=== PATIENT | female | born 1970 | race Caucasian/White ===

== ENCOUNTER 2019-12-12 10:20 | Outpatient (REF) | payer BC, MEDICARE, SELFPAY ==
--- NOTE | 2019-12-12 | MM_ITS ---
EXAMINATION: BONE DENSITOMETRY CLINICAL INDICATION: Postmenopausal. COMPARISON: Baseline BD dated 12/10/2017. TECHNIQUE: Using a [employer] DXA System (software version: 13.1) manufactured by [employer], dual-energy x-ray absorptiometry was performed of the lumbar spine and left hip. The images are of good technical quality. Summary results are attached. FINDINGS: AP SPINE L1-L4: Current: BMD 0.847 g/cm2, Z-score -2.5, T-score -2.8, osteoporosis, 4.9% decrease from baseline (<5% change is not significant). Baseline: BMD 0.891 g/cm2. LEFT FEMUR, NECK: Current: BMD 0.864 g/cm2, Z-score -0.5, T-score -1.3, osteopenia. Baseline: BMD 0.880 g/cm2. LEFT FEMUR, TOTAL: Current: BMD 0.988 g/cm2, Z-score 0.3, T-score -0.2, normal, 2.6% decrease from baseline (<5% change is not significant). Baseline: BMD 1.014 g/cm2. IDENTIFIED RISK FACTORS: Early menopause, bilateral oophorectomy, hysterectomy, history of fracture (adult), secondary osteoporosis. HISTORY OF FRACTURE: Pelvis/sacrum 2009 (nontraumatic). MEDICATIONS: Vitamin D. IMPRESSION: 1. DIAGNOSIS: Severe osteoporosis based on the lowest T-score value of -2.8 in the lumbar spine and history of nontraumatic fracture of pelvis/sacrum applying World Health Organization criteria. 2. 10-YEAR FRACTURE RISK PREDICTION, FRAX: Major osteoporotic fracture (clinical spine, forearm, hip or shoulder) 6.2%. Hip fracture 0.5%. 3. Treatment Recommendations: NOF guidelines recommend consideration for treatment in postmenopausal women and men age 50 and older presenting with the following: -A hip or vertebral (clinical or morphometric) fracture. -T-score less than or equal to -2.5 at the femoral neck or spine after appropriate evaluation to exclude secondary causes. -Low bone mass at the hip or spine and a 10-year fracture probability by FRAX of greater than or equal to 3% for hip fracture or greater than or equal to 20% for major osteoporotic fracture based on the [place] adapted WHO algorithm. 4. Other Recommendations: All treatment decisions require clinical judgment and consideration of individual patient factors, including patient preferences, comorbidities, previous drug use, risk factors not captured in the FRAX model (e.g. frailty, falls, vitamin D deficiency, increased bone turnover, interval significant decline in bone density) and possible under or overestimation of fracture risk by FRAX. Additional medical evaluation for secondary cause of low bone mineral density may be appropriate. FUTURE SCAN RECOMMENDATION: People with diagnosed cases of osteoporosis or at high risk for fracture should have regular bone mineral density tests. For patients eligible for Medicare, routine testing is allowed once every 2 years. The testing frequency can be increased to one year for patients who have rapidly progressing disease, those who are receiving or discontinuing medical therapy to restore bone mass, or have additional risk factors.
== END 2019-12-12 10:21 | disposition home or self-care (01) ==
LOC: HO.MAMMO 10:20
PROVIDERS: PCP Obstetrics & Gynecology; Visit Provider Obstetrics & Gynecology
DX: Z13.820 Encounter for screening for osteoporosis (principal); Z78.0 Asymptomatic menopausal state; Z98.890 Other specified postprocedural states; Z87.81 Personal history of (healed) traumatic fracture
CPT/HCPCS: 77080

== ENCOUNTER 2019-12-13 06:05 | Outpatient (REF) | payer BC, MEDICARE, SELFPAY ==
[2019-12-13 12:05] LABS: Alanine Aminotransferase 20 U/L (0-31); Anion Gap 10 (12-20); Aspartate Amino Transferase 20 U/L (5-31); Blood Urea Nitrogen 12 mg/dL (9-16); Calcium 9.3 mg/dL (8.4-10.2); Carbon Dioxide 30 mmol/L (22-29); Chloride 104 mmol/L (96-108); Cholesterol 237 mg/dL; Estimated Glomerular Filt Rate > 60; Glucose Fasting 95 mg/dL (60-99); HDL Cholesterol 78 mg/dL; LDL Cholesterol Calculated 142 mg/dl; Potassium 4.3 mmol/l (3.3-5.1); Sodium 140 mmol/L (135-145); Triglycerides 85 mg/dL
[2019-12-13 12:09] LABS: Free T4 (Free Thyroxine) 0.75 ng/dL (0.71-1.85); Thyroid Stimulating Hormone 1.56 mIU/mL (0.32-4.0); Vitamin D 25-OH Total 35.4 ng/mL (>30)
== END 2019-12-13 06:06 | disposition home or self-care (01) ==
LOC: HO.HMGCLDS 06:05
PROVIDERS: PCP Internal Medicine; Visit Provider Internal Medicine
DX: Z00.01 Encounter for general adult medical examination with abnormal findings (principal); I10 Essential (primary) hypertension; F41.8 Other specified anxiety disorders; E03.9 Hypothyroidism, unspecified; E89.40 Asymptomatic postprocedural ovarian failure; Z15.09 Genetic susceptibility to other malignant neoplasm; Z15.01 Genetic susceptibility to malignant neoplasm of breast; Z86.39 Personal history of other endocrine, nutritional and metabolic disease
CPT/HCPCS: 80048; 80061; 82306; 84439; 84443; 84450; 84460

== ENCOUNTER 2019-12-28 11:15 | Outpatient (REF) | payer BC, MEDICARE, SELFPAY ==
--- NOTE | 2019-12-28 11:18 | US_ITS ---
EXAMINATION: US THYROID CLINICAL INFORMATION: Other endocrine, nutritional and metabolic disease. Status post right-sided thyroidectomy. COMPARISON: None TECHNIQUE: Linear transducer gentile-scale and color Doppler examination with attention to the region of the thyroid. FINDINGS: SIZE: Measurements of the solitary left thyroid lobe and nodules are given in sagittal, anteroposterior and transverse dimensions respectively. Right Thyroid Lobe: Surgically absent. Left Thyroid Lobe: 4.9 x 1.4 x 1.1 cm, volume 6.0 mL. Parenchyma: The gland echotexture is homogeneous. Thyroid vascularity is normal. Isthmus: 0.1 cm in maximum AP dimension. ISTHMUS: No nodules. LEFT THYROID LOBE: No nodules. NODES: No lymphadenopathy is seen in the tissue surrounding the thyroid gland. US/US thyroid IMPRESSION: Status post right thyroidectomy. No visible left thyroid lobe abnormality. Right thyroidectomy bed unremarkable.
== END 2019-12-28 11:16 | disposition home or self-care (01) ==
LOC: HO.HMGCX 11:15
PROVIDERS: PCP Internal Medicine; Visit Provider Internal Medicine
DX: Z86.39 Personal history of other endocrine, nutritional and metabolic disease (principal); E89.0 Postprocedural hypothyroidism
CPT/HCPCS: 76536

== ENCOUNTER 2020-09-11 11:01 | Emergency (ER) | payer BC, MEDICARE, SELFPAY ==
[2020-09-11 11:11] VITALS: BP 142/92; PULSE 79; RESP 18; TEMP 35.7; O2SAT 98; BMI 21.6
[2020-09-11] MEDS: Ibuprofen 800 MG TABLET PO (12:00)
[2020-09-11] MEDS: Diphth,Pertus(ACell),Tet Adult 0.5 ML SYRINGE IM (12:11)
--- NOTE | 2020-09-11 12:15 | ED.WOUNDLAC ---
HPI - Wound/Laceration General Chief Complaint: Wound/Laceration <LI Gordon Last Filed: 09/11/20 12:37> Stated Complaint: finger laceration <LI Gordon Last Filed: 09/11/20 12:37> Time Seen by Provider: 09/11/20 11:28 <LI Gordon Last Filed: 09/11/20 12:37> Source: patient <LI Gordon Last Filed: 09/11/20 12:37> Mode of arrival: ambulatory <LI Gordon Last Filed: 09/11/20 12:37> Limitations: no limitations <LI Gordon Last Filed: 09/11/20 12:37> History of Present Illness HPI narrative: 49-year-old female presenting to the ED with complaints of laceration to her left hand at the distal aspect where she reports she was cutting lettuce and she sliced her hand with a knife prior to arrival. She is unsure she is up-to-date on her tetanus. She denies any other injuries complaints or concerns at this time. <LI Gordon - Last Filed: 09/11/20 12:37> Onset (ago): minute(s) ( Prior to arrival) <LI Gordon - Last Filed: 09/11/20 12:37> Extremity Location: left: hand ( thumb distal aspect) <LI Gordon - Last Filed: 09/11/20 12:37> Place: home <LI Gordon Last Filed: 09/11/20 12:37> Patient tetanus UTD: No <LI Gordon - Last Filed: 09/11/20 12:37> Context: accidental <LI Gordon Last Filed: 09/11/20 12:37> Associated symptoms: pain <LI Gordon - Last Filed: 09/11/20 12:37> Treatments prior to arrival: bandage <LI Gordon - Last Filed: 09/11/20 12:37> Related Data Home Medications: Home Medications Medication Instructions Recorded Confirmed cholecalciferol (vitamin D3) 125 125 mcg PO DAILY 12/09/19 12/11/19 mcg (5,000 unit) tablet duloxetine 30 mg capsule,delayed 30 mg PO DAILY 12/09/19 12/11/19 release lorazepam 0.5 mg tablet 0.5 mg PO BID PRN 12/09/19 12/11/19 magnesium 200 mg tablet 200 mg PO DAILY 12/09/19 12/11/19 melatonin 5 mg capsule 5 mg PO DAILY PRN cap 12/09/19 12/11/19 multivit,Ca,ziz-tpmj-KU-guarana-caff 1 tab PO DAILY tab 12/09/19 12/11/19 18 mg iron-400 mcg-180 mg tablet Previous Rx's Medication Instructions Recorded acetaminophen [Tylenol Extra 1,000 mg PO QID PRN #14 tab 09/11/20 Strength] ibuprofen 800 mg PO Q8H PRN #14 tab 09/11/20 oxycodone 5 mg PO BID PRN #10 tab 09/11/20 <LI Gordon - Last Filed: 09/11/20 12:37> Allergies/Adverse Reactions: Allergies Allergy/AdvReac Type Severity Reaction Status Date / Time ciprofloxacin [Cipro] Allergy Intermediate rash Verified 09/11/20 11:10 hydromorphone [Dilaudid] AdvReac Intermediate hallucinati Verified 09/11/20 11:10 ons shellfish Allergy Intermediate rash Uncoded 09/11/20 11:10 Wellbutrin Allergy Intermediate rash Uncoded 09/11/20 11:10 Zyban Allergy Intermediate rash Uncoded 09/11/20 11:10 dairy AdvReac Intermediate stomach Uncoded 09/11/20 11:10 upset gluten AdvReac Intermediate GI Uncoded 09/11/20 11:10 intolerance <LI Gordon - Last Filed: 09/11/20 12:37> Review of Systems Review of Systems: Constitutional : No Fever, No Chills, Cardiovascular : No Chest Pain, No SOB Respiratory : No Dyspnea Gastrointestinal : No abdominal pain Musculoskeletal : No Joint Swelling Skin : positive skin laceration, No Foreign bodies, No rash, No surrounding erythema Neuro : No Weakness, No Numbness/tingling Psych : No SI/HI/thoughts of self injury <LI Gordon Last Filed: 09/11/20 12:37> Yes all other systems are reviewed and are negative <LI Gordon - Last Filed: 09/11/20 12:37> [facility] Past Medical History Attestation statement: The following information was validated with the patient. <LI Gordon - Last Filed: 09/11/20 12:37> Medical History: Medical History BRCA2 gene mutation positive Celiac disease Depression with anxiety Fibromyalgia History of multinodular goiter Lumbar degenerative disc disease Lumbar spondylosis Seborrheic dermatitis Surgical menopause <LI Gordon - Last Filed: 09/11/20 12:37> Surgical History: Surgical History H/O partial thyroidectomy History of abdominoplasty History of reconstruction of both breasts Hx of bilateral mastectomy Status post total abdominal hysterectomy and bilateral salpingo-oophorectomy (EBONY-BSO) <LI Gordon - Last Filed: 09/11/20 12:37> Family History Family History: Family History Father Hypertension Mother Breast cancer <LI Gordon - Last Filed: 09/11/20 12:37> Social History Social History: Social History Substance Use Type: Marijuana Advance Directives: Yes Advance Directives Information Provided: Yes Advance Directives on File: No Patient : No <LI Gordon - Last Filed: 09/11/20 12:37> Physical Exam Vital Signs: Vital Signs: Last Vital Signs Temp 96.2 F L 09/11/20 11:11 Pulse 79 09/11/20 11:11 Resp 18 09/11/20 11:11 BP 142/92 H 09/11/20 11:11 Pulse Ox 98 09/11/20 11:11 Body Mass Index 21.6 vital signs have been reviewed as normal and appeared to be correct. Blood pressure normal. Heart rate normal. Respiration rate normal. Temperature normal. Oxygen saturation normal. <LI Gordon - Last Filed: 09/11/20 12:37> Vital Signs: Last Vital Signs Temp 96.2 F L 09/11/20 11:11 Pulse 79 09/11/20 11:11 Resp 18 09/11/20 11:11 BP 142/92 H 09/11/20 11:11 Pulse Ox 98 09/11/20 11:11 Body Mass Index 21.6 <Jonel Zepeda MD - Last Filed: 09/30/20 20:52> Appearance: Alert. Oriented X3. No acute distress. Head: Normal external exam. Normocephalic. Atraumatic. Eyes: PERRLA. EOMI. Conjunctiva and sclera normal. Eyelids normal. ENT: Pharynx normal. Uvula midline. Moist mucous membranes. . Neck: Normal inspection. Neck supple. FROM CVS: Normal heart rate and rhythm. Respiratory: No respiratory distress. Painless inspiration. Back: Full range of motion noted. No rashes/lesion/induration/fluctuance or signs of infection noted. Skin: Skin warm and dry. Normal skin color. Normal skin turgor. No rashes/lesions noted. patient has 1 cm circular avulsion laceration to left hand at the distal aspect of the thumb. Nail bed is not involved. Patient has full range of motion. No laxity is noted. Patient had mild active bleeding. Extremities:Extremities exhibit normal range of motion. Extremities nontender. Neuro: Oriented X 3. No motor deficit. No sensory deficit. Reflexes normal. Normal steady gait. No focal neuro deficits noted. Vascular: + radial pulses/+ 2 distal pedal pulses/+2 dorsalis pedis b/l. Normal cap refill. No cyanosis noted to upper extremity nails and lower extremity toes nails. <LI Gordon - Last Filed: 09/11/20 12:37> Course Course Course Narrative: Patient is now status post Surgicel placement with tube gauze dressing. Updated tetanus. No indication for imaging at this time. Will DC home with symptomatic treatment instructions return if any new or worsening symptoms. Patient understands agrees with this plan. <LI Gordon - Last Filed: 09/11/20 12:37> I have reviewed the chart <Jonel Zepeda MD - Last Filed: 09/30/20 20:52> Procedures Laceration Laceration 1: Site: hand (left thumb ) <LI Gordon - Last Filed: 09/11/20 12:37> Side (If applicable): left <LI Gordon - Last Filed: 09/11/20 12:37> Size (cm): 1 <LI Gordon - Last Filed: 09/11/20 12:37> Description: clean and other ( Avulsion) <LI Gordon Last Filed: 09/11/20 12:37> Pre-repair: wound explored and irrigated extensively <LI Gordon Last Filed: 09/11/20 12:37> Discharge Plan Discharge Clinical Impression: Avulsion of skin <LI Gordon Last Filed: 09/11/20 12:37> Patient Disposition: Home, Self-Care <LI Gordon Last Filed: 09/11/20 12:37> Instructions: Skin Avulsion (ED) <LI Gordon - Last Filed: 09/11/20 12:37> Prescriptions: New ibuprofen 800 mg tablet 800 mg PO Q8H PRN (Reason: pain) Qty: 14 RF: 0 acetaminophen [Tylenol Extra Strength] 500 mg tablet 1,000 mg PO QID PRN (Reason: fever or pain) Qty: 14 RF: 0 oxycodone 5 mg tablet 5 mg PO BID PRN (Reason: pain) Qty: 10 RF: 0 No Action magnesium 200 mg tablet 200 mg PO DAILY RF: 0 lorazepam 0.5 mg tablet 0.5 mg PO BID PRNRF: 0 melatonin 5 mg capsule 5 mg PO DAILY PRN (Reason: sleep) RF: 0 cholecalciferol (vitamin D3) 125 mcg (5,000 unit) tablet 125 mcg PO DAILY RF: 0 duloxetine [Cymbalta] 30 mg capsule,delayed release(DR/EC) 30 mg PO DAILY RF: 0 One-A-Day Women's Active 18 mg iron- 400 mcg-180 mg tablet 1 tab PO DAILY RF: 0 <LI Gordon Last Filed: 09/11/20 12:37> Referrals: Che Sibley MD [Physician] - 2 days (as needed) <LI Gordon Last Filed: 09/11/20 12:37> Interventions: ED Discharge Assessment Last Done: 09/11/20 12:46 <LI Gordon Last Filed: 09/11/20 12:37> Discharge Date/Time: 09/11/20 12:47 <LI Gordon - Last Filed: 09/11/20 12:37> Print Language: Gabonese <LI Gordon - Last Filed: 09/11/20 12:37>
== END 2020-09-11 12:47 | disposition home or self-care (01) ==
PROVIDERS: Emergency Provider Emergency Medicine; PCP Internal Medicine
DX: S61.412A Laceration without foreign body of left hand, initial encounter (principal); W26.0XXA Contact with knife, initial encounter; Y93.G3 Activity, cooking and baking; Y92.009 Unspecified place in unspecified non-institutional (private) residence as the place of occurrence of the external cause; Y99.9 Unspecified external cause status
CPT/HCPCS: 12001; 90471; 90715; 99284

== ENCOUNTER 2020-12-12 06:05 | Outpatient (REF) | payer BC, MEDICARE, SELFPAY ==
[2020-12-12 11:16] LABS: MANUAL DIFF FLAG NO
[2020-12-12 11:56] LABS: Basophils Percent Auto 0.4 % (0-2); Eosinophils Absolute Auto 0.1 X10*3/uL (0.0-0.4); Hematocrit 40.6 % (37-47); Hemoglobin 13.2 g/dl (12.0-16.0); Imm Gran Abs Auto 0.01 X10*3/uL (0.00-0.03); Imm Gran Pct Auto 0.2 % (0.0-0.4); Lymphocytes Absolute Auto 1.7 X10*3/uL (1.2-4.9); Mean Corpuscular HGB Conc 32.5 g/dl (31.0-35.0); Mean Corpuscular Hemoglobin 31.2 pg (27.0-33.0); Mean Platelet Volume 9.1 fL (9.4-12.3); Monocytes Absolute Auto 0.3 X10*3/uL (0.1-1.2); Monocytes Percent Auto 7.2 % (2-11); Neutrophils Absolute Auto 2.4 X10*3/uL (2.0-8.3); Neutrophils Percent Auto 53.2 % (45-73); Platelet Count 248 X10*3/uL (160-400); Red Blood Count 4.23 X10*6/uL (4.20-5.50); Red Cell Distribution Width 12.2 % (11.0-16.0); White Blood Count 4.6 X10*3/uL (4.8-10.8)
[2020-12-12 12:04] LABS: TSH reflex Free T4 2.03 uIU/mL (0.32-4.0); Vitamin D 25-OH Total 45.9 ng/mL (>30)
[2020-12-12 12:12] LABS: Alanine Aminotransferase 19 U/L (0-31); Anion Gap 11 (12-20); Aspartate Amino Transferase 21 U/L (5-31); Blood Urea Nitrogen 14 mg/dL (9-16); Carbon Dioxide 25 mmol/L (22-29); Chloride 107 mmol/L (96-108); Cholesterol 207 mg/dL; Estimated Glomerular Filt Rate > 60; Glucose Fasting 98 mg/dL (60-99); HDL Cholesterol 79 mg/dL; LDL Cholesterol Calculated 115 mg/dl; Potassium 4.4 mmol/L (3.3-5.1); Sodium 139 mmol/L (135-145); Triglycerides 67 mg/dL
[2020-12-12 12:15] LABS: Folate 16.7 ng/mL (> or = 4.0); Vitamin B12 460 pg/mL (200-900)
== END 2020-12-12 06:06 | disposition home or self-care (01) ==
LOC: HO.HMGCLDS 06:05
PROVIDERS: PCP Internal Medicine; Visit Provider Internal Medicine
DX: Z00.01 Encounter for general adult medical examination with abnormal findings (principal); E89.40 Asymptomatic postprocedural ovarian failure; E03.9 Hypothyroidism, unspecified; F41.8 Other specified anxiety disorders; R53.81 Other malaise; R53.83 Other fatigue; M79.7 Fibromyalgia; M81.0 Age-related osteoporosis without current pathological fracture; Z86.39 Personal history of other endocrine, nutritional and metabolic disease; Z15.01 Genetic susceptibility to malignant neoplasm of breast; Z15.09 Genetic susceptibility to other malignant neoplasm
CPT/HCPCS: 36415; 80048; 80061; 82306; 82607; 82746; 84443; 84450; 84460; 85025

== ENCOUNTER 2021-12-12 10:44 | Outpatient (REF) | payer BC, MEDICARE, SELFPAY ==
--- NOTE | ~2021-12-12 | MM_ITS ---
EXAMINATION: BONE DENSITOMETRY CLINICAL INDICATION: Menopause. COMPARISON: Previous BD dated 12/12/2019 and baseline BD dated 12/10/2017. TECHNIQUE: Using a [employer] DXA System (software version: 13.1) manufactured by [facility], dual-energy x-ray absorptiometry was performed of the lumbar spine and left hip. The images are of good technical quality. Summary results are attached. FINDINGS: AP SPINE L1-L4: Current: BMD 0.826 g/cm2, Z-score -2.5, T-score -2.9, osteoporosis, 2.5% decrease from previous, 7.3% decrease from baseline (<5% change is not significant). Prior: BMD 0.847 g/cm2. Baseline: BMD 0.891 g/cm2. LEFT FEMUR, NECK: Current: BMD 0.863 g/cm2, Z-score -0.4, T-score -1.3, osteopenia. Prior: BMD 0.864 g/cm2. Baseline: BMD 0.880 g/cm2. LEFT FEMUR, TOTAL: Current: BMD 0.967 g/cm2, Z-score 0.2, T-score -0.3, normal, 2.1% decrease from previous, 4.6% decrease from baseline (<5% change is not significant). Prior: BMD 0.988 g/cm2. Baseline: BMD 1.014 g/cm2. IDENTIFIED RISK FACTORS: Early menopause, secondary osteoporosis, bilateral oophorectomy, history of fracture (adult), osteoporosis, hysterectomy. HISTORY OF FRACTURE: Pelvis/sacrum 2009. MEDICATIONS: Calcium supplements or multivitamin, vitamin D. MM/XR DEXA axial skeleton IMPRESSION: 1. DIAGNOSIS: Osteoporosis based on the lowest T-score value of -2.9 in the lumbar spine applying World Health Organization criteria. 2. 10-YEAR FRACTURE RISK PREDICTION, FRAX: According to the guidelines, FRAX calculation should only be performed on patients in the osteopenia bone density category. Therefore, FRAX was not performed on this patient. 3. Treatment Recommendations: NOF guidelines recommend consideration for treatment in postmenopausal women and men age 50 and older presenting with the following: -A hip or vertebral (clinical or morphometric) fracture. -T-score less than or equal to -2.5 at the femoral neck or spine after appropriate evaluation to exclude secondary causes. -Low bone mass at the hip or spine and a 10-year fracture probability by FRAX of greater than or equal to 3% for hip fracture or greater than or equal to 20% for major osteoporotic fracture based on the [place] adapted WHO algorithm. 4. Other Recommendations: All treatment decisions require clinical judgment and consideration of individual patient factors, including patient preferences, comorbidities, previous drug use, risk factors not captured in the FRAX model (e.g. frailty, falls, vitamin D deficiency, increased bone turnover, interval significant decline in bone density) and possible under or overestimation of fracture risk by FRAX. Additional medical evaluation for secondary cause of low bone mineral density may be appropriate. FUTURE SCAN RECOMMENDATION: People with diagnosed cases of osteoporosis or at high risk for fracture should have regular bone mineral density tests. For patients eligible for Medicare, routine testing is allowed once every 2 years. The testing frequency can be increased to one year for patients who have rapidly progressing disease, those who are receiving or discontinuing medical therapy to restore bone mass, or have additional risk factors.
== END 2021-12-12 10:45 | disposition home or self-care (01) ==
LOC: HO.MAMMO 10:44
PROVIDERS: Absent Provider Nurse Practitioner; PCP Internal Medicine; Visit Provider Obstetrics & Gynecology
DX: Z13.820 Encounter for screening for osteoporosis (principal); Z78.0 Asymptomatic menopausal state; M81.0 Age-related osteoporosis without current pathological fracture
CPT/HCPCS: 77080

== ENCOUNTER 2022-01-20 06:42 | Outpatient (REF) | payer BC, MEDICARE, SELFPAY ==
[2022-01-20 11:37] LABS: MANUAL DIFF FLAG NO
[2022-01-20 11:54] LABS: Basophils Percent Auto 0.5 % (0-2); Eosinophils Percent Auto 0.7 % (0-4); Hematocrit 39.6 % (37.0-47.0); Hemoglobin 13.2 g/dl (12.0-16.0); Imm Gran Abs Auto 0.01 X10*3/uL (0.00-0.03); Imm Gran Pct Auto 0.2 % (0.0-0.4); Lymphocytes Absolute Auto 1.7 X10*3/uL (1.2-4.9); Lymphocytes Percent Auto 39.7 % (20-40); Mean Corpuscular HGB Conc 33.3 g/dl (31.0-35.0); Mean Corpuscular Hemoglobin 32.5 pg (27.0-33.0); Mean Corpuscular Volume 97.5 fL (80.0-98.0); Mean Platelet Volume 9.1 fL (9.4-12.3); Monocytes Absolute Auto 0.3 X10*3/uL (0.1-1.2); Monocytes Percent Auto 7.3 % (2-11); Neutrophils Absolute Auto 2.2 x10*3/uL (2.0-8.3); Neutrophils Percent Auto 51.6 % (45-73); Platelet Count 240 X10*3/uL (160-400); Red Blood Count 4.06 X10*6/uL (4.20-5.50); Red Cell Distribution Width 12.4 % (11.0-16.0); White Blood Count 4.3 X10*3/uL (4.8-10.8)
[2022-01-20 12:20] LABS: Alanine Aminotransferase 21 U/L (0-31); Anion Gap 10 (12-20); Aspartate Amino Transferase 22 U/L (5-31); Blood Urea Nitrogen 19 mg/dL (9-16); Calcium 9.3 mg/dL (8.4-10.2); Carbon Dioxide 28 mmol/L (22-29); Chloride 106 mmol/L (96-108); Cholesterol 198 mg/dL; Estimated Glomerular Filt Rate > 60; Glucose Fasting 97 mg/dL (60-99); HDL Cholesterol 80 mg/dL; LDL Cholesterol Calculated 109 mg/dl; Potassium 4.3 mmol/L (3.3-5.1); Sodium 140 mmol/L (135-145); Triglycerides 46 mg/dL
== END 2022-01-20 06:43 | disposition home or self-care (01) ==
LOC: HO.HMGCLDS 06:42
PROVIDERS: PCP Internal Medicine; Visit Provider Internal Medicine
DX: Z00.01 Encounter for general adult medical examination with abnormal findings (principal); M81.0 Age-related osteoporosis without current pathological fracture; E89.40 Asymptomatic postprocedural ovarian failure
CPT/HCPCS: 36415; 80048; 80061; 82306; 84450; 84460; 85025

== ENCOUNTER → 2022-06-04 12:37 | Outpatient (REF) | payer BC, MEDICARE, SELFPAY ==
--- NOTE | 2022-06-04 12:41 | HM_ITS ---
* Total monitoring time about 7 days. * Underlying rhythm is sinus. Average ventricular rate 75/Min. Range 47 to 158/Min. About 10% the time, rate > 100/Min. * Rare PACs and PVCs with minimal burden. * No significant pauses or AV blocks. * Patient diary reports symptoms including 'blurp', 'flutter', 'bubble in chest', 'left chest heart' at different times. Correlate with sinus rhythm and sinus tachycardia. MTDD
== END ==
LOC: HO.CARD 12:37
PROVIDERS: PCP Internal Medicine; Visit Provider Internal Medicine
DX: R00.2 Palpitations (principal)
CPT/HCPCS: 93242

== ENCOUNTER 2022-07-09 06:24 | Outpatient (REF) | payer BC, MEDICARE, SELFPAY ==
[2022-07-09 11:12] LABS: MANUAL DIFF FLAG NO
[2022-07-09 11:33] LABS: Basophils Percent Auto 0.7 % (0-2); Eosinophils Absolute Auto 0.1 X10*3/uL (0.0-0.4); Eosinophils Percent Auto 1.4 % (0-4); Hematocrit 40.5 % (37.0-47.0); Imm Gran Abs Auto 0.01 X10*3/uL (0.00-0.03); Imm Gran Pct Auto 0.2 % (0.0-0.4); Lymphocytes Absolute Auto 1.5 X10*3/uL (1.2-4.9); Lymphocytes Percent Auto 36.1 % (20-40); Mean Corpuscular HGB Conc 32.1 g/dl (31.0-35.0); Mean Corpuscular Volume 96.7 fL (80.0-98.0); Mean Platelet Volume 9.1 fL (9.4-12.3); Monocytes Absolute Auto 0.3 X10*3/uL (0.1-1.2); Monocytes Percent Auto 6.3 % (2-11); Neutrophils Absolute Auto 2.3 x10*3/uL (2.0-8.3); Neutrophils Percent Auto 55.3 % (45-73); Platelet Count 249 X10*3/uL (160-400); Red Blood Count 4.19 X10*6/uL (4.20-5.50); Red Cell Distribution Width 12.4 % (11.0-16.0); White Blood Count 4.2 X10*3/uL (4.8-10.8)
[2022-07-09 12:29] LABS: TSH reflex Free T4 1.63 uIU/mL (0.32-4.0)
== END 2022-07-09 06:25 | disposition home or self-care (01) ==
LOC: HO.HMGCLDS 06:24
PROVIDERS: PCP Internal Medicine; Visit Provider Internal Medicine
DX: R00.2 Palpitations (principal)
CPT/HCPCS: 36415; 84443; 85025

== ENCOUNTER 2022-09-29 09:27 | Outpatient (AMB) | payer BC, MEDICARE, SELFPAY ==
[2022-09-29 09:28] VITALS: BP 102/66; PULSE 57; BMI 25.4
--- NOTE | 2022-09-29 09:28 | A.OFFVIS_ITS ---
Intake Vital Signs 09/29/22 09:28 Height 5 ft 2.5 in Weight 141 lb 1.533 oz BMI 25.4 BP 102/66 Blood Pressure Location Lt brachial Position Sitting Pulse 57 Intake Visit Reasons: NPV/Espinas/Palpitations Intake Note: NPV [employer] Manager Required: No Accompanied by: Self / Same As Patient Allergies ciprofloxacin [Cipro] Allergy (Intermediate, Verified 09/29/22 09:31) rash hydromorphone [Dilaudid] Adverse Reaction (Intermediate, Verified 09/29/22 09:31) hallucinations shellfish Allergy (Intermediate, Uncoded 09/29/22 09:31) rash Wellbutrin Allergy (Intermediate, Uncoded 09/29/22 09:31) rash Zyban Allergy (Intermediate, Uncoded 09/29/22 09:31) rash dairy Adverse Reaction (Intermediate, Uncoded 09/29/22 09:31) stomach upset gluten Adverse Reaction (Intermediate, Uncoded 09/29/22 09:31) GI intolerance Medication List - Last Reconciled 09/29/22 by Parish Menendez MD acetaminophen (Tylenol Extra Strength) 1,000 mg (2 x 500 mg) PO QID PRN cephalexin 500 mg PO BID cholecalciferol (vitamin D3) 125 mcg PO DAILY duloxetine (Cymbalta) 30 mg PO DAILY ibuprofen 800 mg PO Q8H PRN lorazepam 0.5 mg PO BID PRN magnesium 200 mg PO DAILY melatonin 5 mg PO DAILY PRN mv,Ca,fzl-rnsk-EY-guarana-caff 18 mg iron- 400 mcg-180 mg (One-A-Day Women's Active) 1 tab PO DAILY HPI HPI Comments History of Present Illness Details Kayla is here for consultation regarding palpitations. She states that she feels some kind of of 'blurp' or so in her left chest periodically. She had a Holter monitor. She describes a lot of symptoms but none of them correlated with any arrhythmias. Mostly with sinus rhythm/sinus tachycardia. Otherwise, she does not have any chest pain or anginal-type symptoms or anything else concerning. She does swim regularly without any issues. Has a history of breast cancer and hence mastectomy/implant. There is a family history of coronary disease in father in his 50s who has undergone several procedures per patient. [facility] Medical History (Updated 09/29/22 @ 09:44 by Parish Menendez MD) BRCA2 gene mutation positive Celiac disease Depression with anxiety Family history of early CAD Fibromyalgia History of multinodular goiter Intermittent palpitations Lumbar degenerative disc disease Lumbar spondylosis Malaise and fatigue Osteoporosis Seborrheic dermatitis Surgical menopause Surgical History H/O partial thyroidectomy History of abdominoplasty History of reconstruction of both breasts Hx of bilateral mastectomy Status post total abdominal hysterectomy and bilateral salpingo-oophorectomy (EBONY-BSO) Family History (Updated 09/29/22 @ 09:33 by Romelia Pavon) Father Hypertension Mental health disorder Heart attack History of open heart surgery Mother Breast cancer Mental health disorder Social History Housing: House Patient Tobacco Use Status: Former Tobacco user Years Smoked: 5 yrs e-Cigarette/Vaping Use: Never Used Substance Use Type: Marijuana service: No Current occupational status: unemployed Cognitive needs: No Hearing needs: No Vision needs: No Review of Systems Const Denies chills, Denies daytime sleepiness, Denies fatigue, Denies fever(s), Denies frequent falls, Denies night sweats, Denies snoring, Denies weakness, Denies weight gain and Denies weight loss Eyes Denies loss of vision ENT Denies dizziness and Denies hearing loss Card Denies chest pain, Denies chest pain with activity, Denies syncope, Denies rapid heart rate, Denies edema, Denies claudication, Denies leg edema, Denies lightheadedness, Denies palpitations, Denies dyspnea, Denies dyspnea on exertion and Denies orthopnea Resp Denies cough, Denies excessive phlegm production, Denies dyspnea, Denies dyspnea on exertion, Denies snoring and Denies wheezing GI Denies abdominal pain, Denies hematochezia, Denies change in bowel habits, Denies change in stool character, Denies heartburn, Denies nausea and Denies vomiting Denies hematuria, Denies urinary frequency and Denies dysuria Musc Denies arthralgias, Denies muscle weakness, Denies numbness and Denies tingling Skin/Breast Denies nail changes and Denies rash Neuro Denies Abnormal speech present, Denies dizziness, Denies syncope, Denies frequent falls, Denies loss of vision, Denies memory loss, Denies numbness, Denies tingling and Denies weakness Psych Denies depression and Denies memory loss Endo Denies fatigue and Denies palpitations Aller/Immun Denies wheezing Physical Exam Vital Signs: Last Vital Signs Pulse 57 09/29/22 09:28 BP 102/66 09/29/22 09:28 BMI result Body Mass Index 25.4 Const General: comfortable and no acute distress Orientation/consciousness: patient oriented x3 HEENT Other: Unremarkable Head: Yes normal to inspection Neck Neck: Yes normal visual inspection Chest Chest palpation & inspection: normal inspection of the chest Resp Auscultation: clear to auscultation bilaterally Cardio Palpation: normal PMI Heart sounds: S1 normal heart sound present, S2 normal heart sound present, no gallops, no murmurs and no rubs GI Palpation (GI): Soft to palpation Back/Spine/Pelvis Other: unremarkable Skin General skin exam: no rashes or lesions noted Neuro General: patient oriented x3 Speech: No Abnormal speech present Extrem General: Yes normal to inspection Psych Mental Status: mental status grossly normal Assessment & Plan Assessment & Plan (1) Heart palpitations: Code(s): R00.2 - Palpitations (2) Family history of early CAD: Comment: father had IA at age 54 y/o Code(s): Z82.49 - Family history of ischemic heart disease and other diseases of the circulatory system Plan In the baseline EKG, underlying rhythm is sinus bradycardia at 48/Min. Biphasic T-waves/inversion in precordial leads V1 to V3. Could be from body habitus, nonspecific finding but less likely to represent coronary issues. In the Holter, underlying sinus rhythm. Very rare PVCs/PACs. Several symptoms reported in patient diary including flutter, blurp, bubble in chest, but they all correlate with sinus rhythm/sinus tachycardia. Holter findings reviewed with patient. As ectopy is extremely rare and probably not causing any symptoms, no specific management for that. Reassurance only. With regard to strong family history of coronary disease in her father at young age, we can do a baseline echocardiogram/calcium scoring CT scan. Patient agreeable to the above. Follow-up in a few weeks time. Orders: Orders CA echo transthoracic complete Today R00.2 - Palpitations CT Coronary Calcium Score Today R00.2 - Palpitations, Z82.49 - Family history of ischemic heart disease and other diseases of the circulatory system Coding Level of Care Code New Pt Level 3 (61293) Diagnoses Heart palpitations R00.2 Family history of early CAD Z82.49
== END 2022-09-29 09:58 | disposition home or self-care (01) ==
PROVIDERS: Visit Provider Internal Medicine
DX: R00.2 Palpitations (principal); Z82.49 Family history of ischemic heart disease and other diseases of the circulatory system
CPT/HCPCS: 99203

== ENCOUNTER → 2022-09-29 09:27 | Outpatient (BNVA) | payer BC, MEDICARE, SELFPAY | PROVIDERS: Visit Provider Internal Medicine ==

== ENCOUNTER 2022-10-06 19:30 | Inpatient (IN) | payer BC, MEDICARE, SELFPAY ==
--- NOTE | ~2022-10-06 | XR_ITS ---
EXAMINATION: XR TOES, LEFT CLINICAL INFORMATION: Injury, swelling, pain. COMPARISON: None available. TECHNIQUE: 3 views of the left toes were obtained. FINDINGS: Cortical lucency and irregularity along the medial and plantar surface of the base of the distal first phalanx. Surrounding soft tissue thickening. No unexpected radiopaque foreign bodies. XR/XR toe LT min 2V IMPRESSION: Cortical lucency and irregularity along the medial and plantar surface of the base of the distal first phalanx. This could represent an acute fracture versus infection such as osteomyelitis. Correlate clinically and if indicated consider further evaluation with MRI.
--- NOTE | ~2022-10-06 | MR_ITS ---
EXAMINATION: MRI FOOT WITHOUT AND WITH CONTRAST, LEFT CLINICAL INFORMATION: Osteomyelitis COMPARISON: Radiographs 10/06/2022 TECHNIQUE: MRI without and with intravenous administration of 6.5 mL of Gadavist is performed on the left forefoot. FINDINGS: There is an elongated T2 hyperintense enhancing structure measuring 4 mm in transverse dimension, and a length of 1.1 cm at the dorsal/medial aspect of the base of the 1st proximal phalanx, possibly extending from the nail bed has a sinus tract. This extends to and erodes the underlying bone at the medial aspect of the base of the 1st distal phalanx, as demonstrated on the radiographs. Associated marrow edema and enhancement is compatible with osteomyelitis in the setting of infection. Other inflammatory etiologies including the possibility of gout should be considered, although the appearance of the bony irregularity/cortical erosion on the radiographs is more suggestive of infection. No interphalangeal joint effusion or marrow signal abnormality of the proximal phalanx. Flexor and extensor tendons appear intact. Otherwise unremarkable. MR/MR foot LT wo/w con IMPRESSION: In the setting of infection, findings consistent with soft tissue sinus tract/small abscess at the dorsal/medial aspect of the base of the 1st proximal phalanx with underlying osteomyelitis as described.
[2022-10-06 20:19] VITALS: BP 128/78; PULSE 80; RESP 20; TEMP 36.9; O2SAT 100; BMI 24.0
--- NOTE | 2022-10-06 20:22 | ED_ITS ---
HPI - Extremity Injury (Lower) General Chief Complaint: Extremity Injury, Lower Stated Complaint: left foot toe infection Time Seen by Provider: 10/06/22 22:21 Related Data Home Medications Medication Instructions Recorded Confirmed lorazepam 0.5 mg tablet 0.5 mg PO BID PRN Anxiety 12/09/19 10/06/22 melatonin 5 mg capsule 5 mg PO DAILY 12/09/19 10/06/22 amoxicillin 875 mg-potassium 1 tab PO BID 10/06/22 10/06/22 clavulanate 125 mg tablet ibuprofen 200 mg tablet 400 mg PO Q6H PRN Pain 10/06/22 10/06/22 Previous Rx's Medication Instructions Recorded acetaminophen 500 mg tablet 1,000 mg PO QID PRN fever or pain 09/11/20 (Tylenol Extra Strength) #14 tabs Allergies Allergy/AdvReac Type Severity Reaction Status Date / Time ciprofloxacin [Cipro] Allergy Intermediate rash Verified 09/29/22 09:31 hydromorphone [Dilaudid] AdvReac Intermediate hallucinati Verified 09/29/22 09:31 ons shellfish Allergy Intermediate rash Uncoded 09/29/22 09:31 Wellbutrin Allergy Intermediate rash Uncoded 09/29/22 09:31 Zyban Allergy Intermediate rash Uncoded 09/29/22 09:31 dairy AdvReac Intermediate stomach Uncoded 09/29/22 09:31 upset gluten AdvReac Intermediate GI Uncoded 09/29/22 09:31 intolerance PMFSH Past Medical History Medical History (Updated 10/06/22 @ 23:39 by Morelia Hudson MD) BRCA2 gene mutation positive Celiac disease Depression with anxiety Family history of early CAD Fibromyalgia History of multinodular goiter Intermittent palpitations Lumbar degenerative disc disease Lumbar spondylosis Malaise and fatigue Osteoporosis Seborrheic dermatitis Surgical menopause Surgical History H/O partial thyroidectomy History of abdominoplasty History of reconstruction of both breasts Hx of bilateral mastectomy Status post total abdominal hysterectomy and bilateral salpingo-oophorectomy (EBONY-BSO) Family History Family History (Updated 09/29/22 @ 09:33 by Romelia Pavon) Father Hypertension Mental health disorder Heart attack History of open heart surgery Mother Breast cancer Mental health disorder Social History Social History Housing: House Patient Tobacco Use Status: Former Tobacco user Years Smoked: 5 yrs e-Cigarette/Vaping Use: Never Used Substance Use Type: Marijuana Advance Directives: No Advance Directives Information Provided: Yes Nutrition Risks: No Nutritional Risk service: No Current occupational status: unemployed Cognitive needs: No Hearing needs: No Vision needs: No Physical Exam Vital Signs: Vital Signs: Last Vital Signs Temp 98.5 F 10/06/22 20:19 Pulse 80 10/06/22 20:19 Resp 20 10/06/22 20:19 BP 128/78 10/06/22 20:19 Pulse Ox 100 10/06/22 20:19 O2 Del Method Room Air 10/06/22 20:19 BMI result Body Mass Index 24.0 Course Course Course Narrative: RME - 51 yo female presenting to the ER for evaluation of left great toe pain, redness and swelling since she had an injury on 09/17. Had nail removed by her doctor and was started on Keflex 09/25. Changed to Augmentin on 09/28 with worse adalberto redness and swelling. No relief with epsom salt soaks TID, motrin and tylenol. No diabetic. No hx gout Plan: x-ray toe, I&D? Medications Administered Discontinued Medications Generic Name Dose Route Start Last Admin Trade Name Freq PRN Reason Stop Dose Admin Sodium Chloride 1,000 mls @ 999 mls/hr 10/06/22 22:30 10/06/22 23:01 Ns IVCONT 10/06/22 23:30 999 mls/hr .Q1H1M ONE Administration Piperacillin Sod/Tazobactam 50 mls @ 100 mls/hr 10/06/22 22:30 10/06/22 23:10 Sod 3.375 gm/ Sodium Chloride IV 10/06/22 22:59 100 mls/hr ONCE ONE Administration Lorazepam 0.5 mg 10/06/22 22:30 10/06/22 22:59 Lorazepam 0.5 Mg Tablet PO 10/06/22 22:31 0.5 mg ONCE ONE Administration Medical Decision Making Medical Decision Making [facility] Narrative: - patient failed p.o. antibiotics, patient's toe keeps getting worse - My interpretation of her x-ray: No fracture there is a small area of tra nslucency the medial aspect of the 1st phalanx - radiology report: x-ray, there is a possibility of osteomyelitis. - patient was started on IV antibiotics, Zosyn and vancomycin and IV fluids. Sepsis not suspected Differential Diagnosis Differential Diagnoses: The differential diagnosis associated with the presentation includes ( Phalanx fracture, osteomyelitis, cellulitis) Admission/Observation Consideration of admission/observation: Escalation of care including admission/observation considered Consult Healthcare Provider Management of the patient was discussed with: Hospitalist ( I discussed the patient with Dr. Fuentes, patient being admitted) Lab Data MDM Lab Attestation statement: I reviewed the patient's lab results. 10/06/22 22:45 10/06/22 22:45 Labs: Lab Results 10/06/22 10/06/22 10/06/22 Range/Units 22:45 22:45 22:45 WBC 7.8 (4.8-10.8) X10*3/uL RBC 4.43 (4.20-5.50) X10*6/uL Hgb 13.9 (12.0-16.0) g/dl Hct 40.8 (37.0-47.0) % MCV 92.1 (80.0-98.0) fL MCH 31.4 (27.0-33.0) pg MCHC 34.1 (31.0-35.0) g/dl RDW 11.6 (11.0-16.0) % Plt Count 267 (160-400) X10*3/uL MPV 8.5 L (9.4-12.3) fL Immature Gran % (Auto) 0.4 (0.0-0.4) % Neut % (Auto) 49.1 (45-73) % Lymph % (Auto) 41.6 H (20-40) % [place] % (Auto) 7.4 (2-11) % Eos % (Auto) 1.1 (0-4) % Baso % (Auto) 0.4 (0-2) % Lymph # (Auto) 3.3 (1.2-4.9) X10*3/uL [place] # (Auto) 0.6 (0.1-1.2) X10*3/uL Eos # (Auto) 0.1 (0.0-0.4) X10*3/uL Baso # (Auto) 0.0 (0.0-0.2) X10*3/uL Abs Immat Gran (auto) 0.03 (0.00-0.03) X10*3/uL Absolute Neuts (auto) 3.9 (2.0-8.3) x10*3/uL Absolute Nucleated RBC 0.000 (0.0-0.012) X10*3/uL Nucleated RBC % (auto) 0.0 (0.0-0.2) /100WBC Sodium 140 (135-145) mmol/L Potassium 3.9 (3.3-5.1) mmol/L Chloride 100 (96-108) mmol/L Carbon Dioxide 26 (22-29) mmol/L Anion Gap 18 (12-20) BUN 23 H (9-16) mg/dL Creatinine 0.73 (0.5-1.4) mg/dL Estim Creat Clear Calc 83.8 Estimated GFR > 60 Random Glucose 98 (60-115) mg/dL Lactic Acid 0.5 (0.5-2.0) mmol/L Calcium 10.5 H D (8.4-10.2) mg/dL C-Reactive Protein < 0.04 (< or = 0.50) mg/dL Radiology Impression Discussion of test interpretation with radiology: I have reviewed the radiologist's reading. Radiologist Impression: FINDINGS: Cortical lucency and irregularity along the medial and plantar surface of the base of the distal first phalanx. Surrounding soft tissue thickening. No unexpected radiopaque foreign bodies. XR/XR toe LT min 2V IMPRESSION: Cortical lucency and irregularity along the medial and plantar surface of the base of the distal first phalanx. This could represent an acute fracture versus infection such as osteomyelitis. Correlate clinically and if indicated consider further evaluation with MRI. ? Independent Historian Clinical information obtained from an independent historian. History obtained from or confirmed by: Spouse Critical Care Time Critical Care Time Critical Care Time: Yes Total Critical Care Time: 60 Attestation: I have personally provided critical care time. Time includes review of lab data, radiology results, discussion with consultants, and monitoring for potential decompensation. Intervention performed as documented. Discharge Plan Discharge Clinical Impression: Acute osteomyelitis of toe Patient Disposition: Home, Self-Care Prescriptions: No Action acetaminophen [Tylenol Extra Strength] 500 mg tablet 1,000 mg PO QID PRN (Reason: fever or pain) Qty: 14 0RF ibuprofen 200 mg Tablet 400 mg PO Q6H PRN (Reason: Pain) amoxicillin-pot clavulanate 875-125 mg tablet 1 tab PO BID lorazepam 0.5 mg tablet 0.5 mg PO BID PRN (Reason: Anxiety) melatonin 5 mg capsule 5 mg PO DAILY Rx Instructions: At bedtime with food
--- NOTE | 2022-10-06 22:43 | PHA.MEDREC ---
Pharmacy Consult ? Medication Reconciliation Pharmacy has completed the medication reconciliation. Patient reported medicaitons. Adriana Willoughby, VinicioD
[2022-10-06 22:54] LABS: MANUAL DIFF FLAG NO
[2022-10-06] MEDS: LORazepam 0.5 MG TABLET PO (22:59)
[2022-10-06 23:00] LABS: Basophils Percent Auto 0.4 % (0-2); Eosinophils Absolute Auto 0.1 X10*3/uL (0.0-0.4); Eosinophils Percent Auto 1.1 % (0-4); Hematocrit 40.8 % (37.0-47.0); Hemoglobin 13.9 g/dl (12.0-16.0); Imm Gran Abs Auto 0.03 X10*3/uL (0.00-0.03); Imm Gran Pct Auto 0.4 % (0.0-0.4); Lymphocytes Absolute Auto 3.3 X10*3/uL (1.2-4.9); Lymphocytes Percent Auto 41.6 % (20-40); Mean Corpuscular HGB Conc 34.1 g/dl (31.0-35.0); Mean Corpuscular Hemoglobin 31.4 pg (27.0-33.0); Mean Corpuscular Volume 92.1 fL (80.0-98.0); Mean Platelet Volume 8.5 fL (9.4-12.3); Monocytes Absolute Auto 0.6 X10*3/uL (0.1-1.2); Monocytes Percent Auto 7.4 % (2-11); Neutrophils Absolute Auto 3.9 x10*3/uL (2.0-8.3); Neutrophils Percent Auto 49.1 % (45-73); Platelet Count 267 X10*3/uL (160-400); Red Blood Count 4.43 X10*6/uL (4.20-5.50); Red Cell Distribution Width 11.6 % (11.0-16.0); White Blood Count 7.8 X10*3/uL (4.8-10.8)
[2022-10-06] MEDS: 0.9 % Sodium Chloride 1,000 ML 999 ML IVCONT (23:01)
[2022-10-06 23:07] LABS: Lactic Acid 0.5 mmol/L (0.5-2.0)
[2022-10-06] MEDS: Piperacillin Sodium/Tazobactam 3.375 GM in 0.9 % Sodium Chloride 50 ML IV (23:10)
[2022-10-06 23:13] LABS: Anion Gap 18 (12-20); Blood Urea Nitrogen 23 mg/dL (9-16); C Reactive Protein < 0.04 mg/dL (< or = 0.50); Calcium 10.5 mg/dL (8.4-10.2); Carbon Dioxide 26 mmol/L (22-29); Chloride 100 mmol/L (96-108); Creatinine Clr Calc Pharmacy 83.8; Estimated Glomerular Filt Rate > 60; Glucose Random 98 mg/dL (60-115); Potassium 3.9 mmol/L (3.3-5.1); Sodium 140 mmol/L (135-145)
--- NOTE | 2022-10-06 23:21 | PM.IMHP ---
History of Present Illness Date of Service: 10/06/22 Chief Complaint: Left toe infection This is a 51-year-old female with pertinent history of anxiety presents to the emergency department for evaluation of left toe swelling, redness and pain. Patient states that about 3 weeks prior to presentation, left great toenail was caught in her 's boot. She went to a outer diameter grinder tool who removed the nail. Subsequently it got infected and patient was put on Keflex. No improvement was noted and patient's antibiotic was changed to Augmentin. Patient states she presents today as her left great toe continues to be red, swollen and tender. No similar history in the past. Does not have diabetes. Patient denies fever, chills, chest discomfort, palpitations, shortness of breath, abdominal pain, changes in urinary or bowel habits. In the emergency department, imaging concerning for osteomyelitis Review of Systems Constitutional: Constitutional: Reports no additional constitutional complaints Cardiovascular: Cardiovascular: Reports no additional cardiovascular complaints Respiratory: Respiratory: Reports no additional respiratory complaints Gastrointestinal: Gastrointestinal: Reports no additional gastrointestinal complaints Genitourinary: Genitourinary: Reports no additional female genitourinary complaints Musculoskeletal: Musculoskeletal: Reports arthralgias and Reports joint swelling [facility] Medical History BRCA2 gene mutation positive Celiac disease Depression with anxiety Family history of early CAD Fibromyalgia History of multinodular goiter Intermittent palpitations Lumbar degenerative disc disease Lumbar spondylosis Malaise and fatigue Osteoporosis Seborrheic dermatitis Surgical menopause Family History Father Hypertension Mental health disorder Heart attack History of open heart surgery Mother Breast cancer Mental health disorder Surgical History H/O partial thyroidectomy History of abdominoplasty History of reconstruction of both breasts Hx of bilateral mastectomy Status post total abdominal hysterectomy and bilateral salpingo-oophorectomy (EBONY-BSO) Social History Housing: House Patient Tobacco Use Status: Former Tobacco user Years Smoked: 5 yrs e-Cigarette/Vaping Use: Never Used Substance Use Type: Marijuana Advance Directives: No Advance Directives Information Provided: Yes Nutrition Risks: No Nutritional Risk service: No Current occupational status: unemployed Cognitive needs: No Hearing needs: No Vision needs: No Meds Allergies Allergy/AdvReac Type Severity Reaction Status Date / Time ciprofloxacin [Cipro] Allergy Intermediate rash Verified 09/29/22 09:31 hydromorphone [Dilaudid] AdvReac Intermediate hallucinati Verified 09/29/22 09:31 ons shellfish Allergy Intermediate rash Uncoded 09/29/22 09:31 Wellbutrin Allergy Intermediate rash Uncoded 09/29/22 09:31 Zyban Allergy Intermediate rash Uncoded 09/29/22 09:31 dairy AdvReac Intermediate stomach Uncoded 09/29/22 09:31 upset gluten AdvReac Intermediate GI Uncoded 09/29/22 09:31 intolerance Active Medications: Current Medications Sodium Chloride (Ns) 1,000 mls @ 999 mls/hr IVCONT .Q1H1M ONE Stop: 10/06/22 23:30 Last Admin: 10/06/22 23:01 Dose: 999 mls/hr Vancomycin HCl 1,000 mg/Vancomycin HCl 750 mg/ Sodium Chloride 535 mls @ 267.5 mls/hr IV ONCE ONE Stop: 10/07/22 00:29 Pharmacy Consult (Consult Rx Perform Med Rec) 1 each MISCELLANE ONCE PRN PRN Reason: Consult order Home Medications Medication Instructions Recorded Confirmed Last Taken Type lorazepam 0.5 mg tablet 0.5 mg PO BID PRN Anxiety 12/09/19 10/06/22 Unknown History melatonin 5 mg capsule 5 mg PO DAILY 12/09/19 10/06/22 Unknown History amoxicillin 875 mg-potassium 1 tab PO BID 10/06/22 10/06/22 10/06/22 History clavulanate 125 mg tablet ibuprofen 200 mg tablet 400 mg PO Q6H PRN Pain 10/06/22 10/06/22 Unknown History Physical Exam Vital Signs and Narrative: Vital Signs: Last Vital Signs Temp 98.5 F 10/06/22 20:19 Pulse 80 10/06/22 20:19 Resp 20 10/06/22 20:19 BP 128/78 10/06/22 20:19 Pulse Ox 100 10/06/22 20:19 O2 Del Method Room Air 10/06/22 20:19 BMI result Body Mass Index 24.0 Middle-aged female lying in bed in no distress Neck supple, no JVD Regular rate and rhythm, S1-S2 heard Regular breath sounds bilaterally, no wheezing or crackles appreciated Abdomen soft nontender, no guarding, no rigidity Patient is awake, alert and oriented to self, place, time and person ; no focal motor deficit Extremity: Left great toe with swelling, erythema and tenderness Psych: Normal mood No pedal edema Results Labs 10/06/22 22:45 10/06/22 22:45 Labs: Laboratory Results - last 24 hr 10/06/22 10/06/22 10/06/22 22:45 22:45 22:45 MCV 92.1 MCH 31.4 MCHC 34.1 RDW 11.6 Plt Count 267 MPV 8.5 L Immature Gran % (Auto) 0.4 Neut % (Auto) 49.1 Lymph % (Auto) 41.6 H [place] % (Auto) 7.4 Eos % (Auto) 1.1 Baso % (Auto) 0.4 Lymph # (Auto) 3.3 [place] # (Auto) 0.6 Eos # (Auto) 0.1 Baso # (Auto) 0.0 Abs Immat Gran (auto) 0.03 Absolute Neuts (auto) 3.9 Absolute Nucleated RBC 0.000 Nucleated RBC % (auto) 0.0 Anion Gap 18 Estim Creat Clear Calc 83.8 Estimated GFR > 60 Random Glucose 98 Lactic Acid 0.5 Calcium 10.5 H D C-Reactive Protein < 0.04 Imaging Radiologist's Impressions: Impressions Toe X-Ray 10/06/22 20:40 IMPRESSION: Cortical lucency and irregularity along the medial and plantar surface of the base of the distal first phalanx. This could represent an acute fracture versus infection such as osteomyelitis. Correlate clinically and if indicated consider further evaluation with MRI. Assessment and Plan (1) Toe osteomyelitis, left: Status: Acute Plan This is a 51-year-old female with pertinent history of anxiety presents to the emergency department for evaluation of left toe swelling, redness and pain. #. Cellulitis of left toe. Will admit patient and initiate empiric IV antibiotics as she failed p.o. antibiotics. Imaging with concerns for osteomyelitis. Obtaining MRI to delineate anatomy. #. Mood disorder. On Ativan DVT prophylaxis: Lovenox Full code Admit as inpatient and will require two night minimum hospital stay for IV antibiotics Time Spent With Patient Time: Total time managing care of this patient today ____ minutes. Quality Stroke Does the patient have a stroke diagnosis?: No VTE Prior VTE?: No VTE Risk Level:: Medical - moderate - high VTE Device Contraindication: Treatment Not Indicated VTE Drug Contraindication: N/A - Med Ordered
[2022-10-06 23:39] LABS: Erythrocyte Sedimentation Rate 7 MM/HR (0-20)
[2022-10-07 00:15] VITALS: BP 103/61; PULSE 79; RESP 14; TEMP 36.8; O2SAT 99
[2022-10-07] MEDS: vancomycin HCL 1,000 MG, vancomycin HCL 750 MG in 0.9 % Sodium Chloride 500 ML 267.5 MG IV (00:26)
[2022-10-07] MEDS: Acetaminophen 325 MG TABLET 650 MG PO ×4 (00:27→20:12)
[2022-10-07] MEDS: 0.9 % Sodium Chloride Flush 3 ML SYRINGE IVFLUSH ×4 (00:27→23:33)
[2022-10-07] MEDS: Melatonin 3 MG TABLET 6 MG PO ×2 (00:27→20:12)
--- NOTE | 2022-10-07 00:44 | PC.NURSE ---
Nurse report given to MYLES Meehan as pt is going to overflow bed 10 and aware of plan of care.
[2022-10-07 01:14] VITALS: BP 111/62; PULSE 70; RESP 18; TEMP 36.7; O2SAT 97
--- NOTE | 2022-10-07 03:17 | PC.NURSE ---
Pt arrived in ED Overflow from ED. Pt oriented to unit, staff and call tapia system. Pts was at bedside until pt got settled in then left for the night. Pt's Left great toe is red, swollen and has a black area on it. 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 Pt ambulated to and from bathroom with a steady gait. No reported pain. Pt sleeping comfortably with tv on. Call tapia within reach.
[2022-10-07 05:13] LABS: MANUAL DIFF FLAG NO
[2022-10-07 05:16] LABS: Basophils Percent Auto 0.5 % (0-2); Eosinophils Absolute Auto 0.1 X10*3/uL (0.0-0.4); Eosinophils Percent Auto 1.1 % (0-4); Hematocrit 36.6 % (37.0-47.0); Hemoglobin 12.5 g/dl (12.0-16.0); Imm Gran Abs Auto 0.01 X10*3/uL (0.00-0.03); Imm Gran Pct Auto 0.2 % (0.0-0.4); Lymphocytes Absolute Auto 2.2 X10*3/uL (1.2-4.9); Lymphocytes Percent Auto 38.6 % (20-40); Mean Corpuscular HGB Conc 34.2 g/dl (31.0-35.0); Mean Corpuscular Hemoglobin 31.9 pg (27.0-33.0); Mean Corpuscular Volume 93.4 fL (80.0-98.0); Mean Platelet Volume 8.5 fL (9.4-12.3); Monocytes Absolute Auto 0.4 X10*3/uL (0.1-1.2); Monocytes Percent Auto 7.4 % (2-11); Neutrophils Absolute Auto 2.9 x10*3/uL (2.0-8.3); Neutrophils Percent Auto 52.2 % (45-73); Platelet Count 221 X10*3/uL (160-400); Red Blood Count 3.92 X10*6/uL (4.20-5.50); Red Cell Distribution Width 11.7 % (11.0-16.0); White Blood Count 5.6 X10*3/uL (4.8-10.8)
[2022-10-07 05:30] LABS: Anion Gap 14 (12-20); Blood Urea Nitrogen 15 mg/dL (9-16); Calcium 9.6 mg/dL (8.4-10.2); Carbon Dioxide 22 mmol/L (22-29); Chloride 109 mmol/L (96-108); Creatinine Clr Calc Pharmacy 92.7; Estimated Glomerular Filt Rate > 60; Glucose Random 99 mg/dL (60-115); Sodium 141 mmol/L (135-145)
--- NOTE | 2022-10-07 06:34 | PHA.PROG ---
Admission Date/Time: October 06, 2022 23:20 Indication: Skin Weight in k.5 kg Adjusted body weight in Kg: [place] body weight in Kg: Obesity Dosing Indication % IBW: Serum Creatinine - Last 168 Hours 10/06/22 10/07/22 22:45 05:08 Creatinine 0.73 0.66 Estimated CrCl and GFR - Last 168 Hours 10/06/22 10/07/22 22:45 05:08 Estim Creat Clear Calc 83.8 92.7 Estimated GFR > 60 > 60 Vancomycin Loading Dose: 1750mg x 1 Current Vancomycin Dosing Regimen: 1000mg Q12H Vancomycin Monitoring using AUC goal of 400 - 600 range with trough as surrogate marker: 489 mg/L Date and Time for next Vancomycin Level to be drawn: 10/08/22 @2100 Pharmacist Comments on Vancomycin Plan: Vancomycin dosing will take advantage of [employer] as a clinical decision support tool that uses Bayesian modeling to calculate individual patient's pharmacokinetic parameters and forecast the patient's drug concentration time course with the target goal AUC 24 range of 400 - 600 mg/L/hr.
[2022-10-07 07:57] VITALS: BP 95/55; PULSE 79; RESP 18; TEMP 37; O2SAT 95
--- NOTE | 2022-10-07 10:43 | P.PNIM_ITS ---
Subjective Subjective Date of Service: 10/07/22 Interval History: no significant changes Physical Exam Vital Signs: Vital Signs: Last Vital Signs Temp 98.6 F 10/07/22 07:57 Pulse 79 10/07/22 07:57 Resp 18 10/07/22 07:57 BP 95/55 L 10/07/22 07:57 Pulse Ox 95 10/07/22 07:57 O2 Del Method Room Air 10/07/22 07:57 BMI result Body Mass Index 24.0 left first toe erythema Objective Data Active Medications Acetaminophen (Acetaminophen 325 Mg Tablet) 650 mg PO Q6H PRN PRN Reason: Pain, Mild (Pain Scale 1-3) Last Admin: 10/07/22 07:43 Dose: 650 mg Documented By: JESSY Enoxaparin Sodium (Enoxaparin Sodium 40 Mg/0.4 Ml Syringe) 40 mg SUBCUT Q24H [facility] Last Admin: 10/07/22 07:51 Dose: Not Given Documented By: JESSY Non-Admin Reason: Patient Refused Vancomycin HCl 1,000 mg/ (Sodium Chloride) 270 mls @ 270 mls/hr IV Q12H [facility] Lorazepam (Lorazepam 0.5 Mg Tablet) 0.5 mg PO BID PRN PRN Reason: Anxiety Lorazepam (Lorazepam 2 Mg/Ml Vial) 1 mg IVPUSH ONCE PRN PRN Reason: mri Melatonin (Melatonin 3 Mg Tablet) 6 mg PO BEDTIME PRN PRN Reason: Insomnia Last Admin: 10/07/22 00:27 Dose: 6 mg Documented By: CECILE Ondansetron HCl (Ondansetron Hcl 4 Mg/2 Ml Vial) 4 mg IVPUSH Q8H PRN PRN Reason: Nausea and Vomiting Pharmacy Consult (Consult Rx Perform Med Rec) 1 each MISCELLANE ONCE PRN PRN Reason: Consult order Pharmacy Consult (Consult Rx Vancomycin Dosing) 1 each MISCELLANE DAILY PRN PRN Reason: Consult order Sodium Chloride (0.9 % Sodium Chloride Flush 3 Ml Syringe) 3 ml IVFLUSH QSHIFT [facility] Last Admin: 10/07/22 07:51 Dose: 3 ml Documented By: JESSY Labs 10/07/22 05:08 10/07/22 05:08 Labs: Laboratory Results - last 24 hr 10/06/22 10/06/22 10/06/22 22:45 22:45 22:45 MCV 92.1 MCH 31.4 MCHC 34.1 RDW 11.6 Plt Count 267 MPV 8.5 L Immature Gran % (Auto) 0.4 Neut % (Auto) 49.1 Lymph % (Auto) 41.6 H [place] % (Auto) 7.4 Eos % (Auto) 1.1 Baso % (Auto) 0.4 Lymph # (Auto) 3.3 [place] # (Auto) 0.6 Eos # (Auto) 0.1 Baso # (Auto) 0.0 Abs Immat Gran (auto) 0.03 Absolute Neuts (auto) 3.9 Absolute Nucleated RBC 0.000 Nucleated RBC % (auto) 0.0 ESR 7 Anion Gap 18 Estim Creat Clear Calc 83.8 Estimated GFR > 60 Random Glucose 98 Lactic Acid Calcium 10.5 H D C-Reactive Protein < 0.04 10/06/22 10/07/22 10/07/22 22:45 05:08 05:08 MCV 93.4 MCH 31.9 MCHC 34.2 RDW 11.7 Plt Count 221 MPV 8.5 L Immature Gran % (Auto) 0.2 Neut % (Auto) 52.2 Lymph % (Auto) 38.6 [place] % (Auto) 7.4 Eos % (Auto) 1.1 Baso % (Auto) 0.5 Lymph # (Auto) 2.2 [place] # (Auto) 0.4 Eos # (Auto) 0.1 Baso # (Auto) 0.0 Abs Immat Gran (auto) 0.01 Absolute Neuts (auto) 2.9 Absolute Nucleated RBC 0.000 Nucleated RBC % (auto) 0.0 ESR Anion Gap 14 Estim Creat Clear Calc 92.7 Estimated GFR > 60 Random Glucose 99 Lactic Acid 0.5 Calcium 9.6 D C-Reactive Protein Assessment and Plan (1) Toe osteomyelitis, left: Status: Acute Plan 51F PMH anxiety presented with left first toe non healing erythema, pain left first toe cellulitis concern for OM follow up mri, id continue empiric vanc anxiety ativan dvt prophylaxis - lovenox full code reason for continued hospitalization:awaiting mri, ? 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 Quality Stroke Does the patient have a stroke diagnosis?: No VTE Prior VTE?: No VTE Risk Level:: Medical - moderate - high VTE Device Contraindication: Treatment Not Indicated VTE Drug Contraindication: N/A - Med Ordered
[2022-10-07] MEDS: vancomycin HCL 1,000 MG in 0.9 % Sodium Chloride 250 ML 270 MG IV ×2 (10:55→22:23)
[2022-10-07] MEDS: LORazepam 2 MG/ML VIAL 1 MG IVPUSH (12:02)
[2022-10-07 15:30] VITALS: BP 106/64; PULSE 63; RESP 20; TEMP 36.4; O2SAT 97
[2022-10-07 19:44] VITALS: BP 103/67; PULSE 64; RESP 20; TEMP 36.6; O2SAT 96
[2022-10-07] MEDS: LORazepam 0.5 MG TABLET PO (20:12)
--- NOTE | 2022-10-07 22:22 | P.CNID_ITS ---
History of Present Illness Data of Consult Service Date: 10/07/22 Requesting physician: Cy Lewis Primary Care Provider: Mary Tenorio MD HPI Reason for consult: left great toe infection She presents with left great toe pain and redness since 09/17. She says she injured foot,stepped on by husbands boot and nail pulled off. She had redness and swelling and was seen in ER then. She received Keflex in Er on 09/25 and then switched to po Augmentin on 09/28 and didnt improve. Nail was removed by Podiatry and gentian nakul applied. She has no fever or chills. She reports checking blood sugar at home and over 140 but here in 90s and glycohgb 5.5 in 2020. Ahe has MRI soft tissue sinus tract and small abscess and dorsal/medial base first proximal phalanx DM. Review of Systems Review of Systems: Yes all other systems are reviewed and are negative [facility] Past Medical History Medical History BRCA2 gene mutation positive Celiac disease Depression with anxiety Family history of early CAD Fibromyalgia History of multinodular goiter Intermittent palpitations Lumbar degenerative disc disease Lumbar spondylosis Malaise and fatigue Osteoporosis Seborrheic dermatitis Surgical menopause Family History Family History Father Hypertension Mental health disorder Heart attack History of open heart surgery Mother Breast cancer Mental health disorder Family history: reviewed and not pertinent Surgical History Surgical History H/O partial thyroidectomy History of abdominoplasty History of reconstruction of both breasts Hx of bilateral mastectomy Status post total abdominal hysterectomy and bilateral salpingo-oophorectomy (EBONY-BSO) Social History Social History Household Members: Spouse Household Members Other:: 3 Housing: House Patient Tobacco Use Status: Former Tobacco user Years Smoked: 5 yrs e-Cigarette/Vaping Use: Never Used Substance Use Type: Marijuana service: No Current occupational status: unemployed Cognitive needs: No Hearing needs: No Vision needs: No Meds Allergies Allergy/AdvReac Type Severity Reaction Status Date / Time ciprofloxacin [Cipro] Allergy Intermediate rash Verified 09/29/22 09:31 hydromorphone [Dilaudid] AdvReac Intermediate hallucinati Verified 09/29/22 09:31 ons shellfish Allergy Intermediate rash Uncoded 09/29/22 09:31 Wellbutrin Allergy Intermediate rash Uncoded 09/29/22 09:31 Zyban Allergy Intermediate rash Uncoded 09/29/22 09:31 dairy AdvReac Intermediate stomach Uncoded 09/29/22 09:31 upset gluten AdvReac Intermediate GI Uncoded 09/29/22 09:31 intolerance Active Medications: Current Medications Acetaminophen (Acetaminophen 325 Mg Tablet) 650 mg PO Q6H PRN PRN Reason: Pain, Mild (Pain Scale 1-3) Last Admin: 10/07/22 20:12 Dose: 650 mg Enoxaparin Sodium (Enoxaparin Sodium 40 Mg/0.4 Ml Syringe) 40 mg SUBCUT Q24H [facility] Last Admin: 10/07/22 07:51 Dose: Not Given Vancomycin HCl 1,000 mg/ (Sodium Chloride) 270 mls @ 270 mls/hr IV Q12H [facility] Last Infusion: 10/07/22 12:07 Dose: Infused Lorazepam (Lorazepam 0.5 Mg Tablet) 0.5 mg PO BID PRN PRN Reason: Anxiety Last Admin: 10/07/22 20:12 Dose: 0.5 mg Lorazepam (Lorazepam 2 Mg/Ml Vial) 1 mg IVPUSH ONCE PRN PRN Reason: mri Last Admin: 10/07/22 12:02 Dose: 1 mg Melatonin (Melatonin 3 Mg Tablet) 6 mg PO BEDTIME PRN PRN Reason: Insomnia Last Admin: 10/07/22 20:12 Dose: 6 mg Ondansetron HCl (Ondansetron Hcl 4 Mg/2 Ml Vial) 4 mg IVPUSH Q8H PRN PRN Reason: Nausea and Vomiting Pharmacy Consult (Consult Rx Perform Med Rec) 1 each MISCELLANE ONCE PRN PRN Reason: Consult order Pharmacy Consult (Consult Rx Vancomycin Dosing) 1 each MISCELLANE DAILY PRN PRN Reason: Consult order Sodium Chloride (0.9 % Sodium Chloride Flush 3 Ml Syringe) 3 ml IVFLUSH QSHIFT [facility] Last Admin: 10/07/22 15:17 Dose: 3 ml Home Medications Medication Instructions Recorded Confirmed Last Taken Type lorazepam 0.5 mg tablet 0.5 mg PO BID PRN Anxiety 12/09/19 10/06/22 Unknown History melatonin 5 mg capsule 5 mg PO DAILY 12/09/19 10/06/22 Unknown History amoxicillin 875 mg-potassium 1 tab PO BID 10/06/22 10/06/22 10/06/22 History clavulanate 125 mg tablet ibuprofen 200 mg tablet 400 mg PO Q6H PRN Pain 10/06/22 10/06/22 Unknown History Physical Exam Vital Signs: Vital Signs: Last Vital Signs Temp 98 F 10/07/22 19:44 Pulse 64 10/07/22 19:44 Resp 20 10/07/22 19:44 BP 103/67 10/07/22 19:44 Pulse Ox 96 10/07/22 19:44 O2 Del Method Room Air 10/07/22 19:44 BMI result Body Mass Index 24.0 Const: General: cooperative HEENT: Head: Yes normal to inspection Face and sinus: Yes normal facial exam Mouth: Normal oral and palatal mucosa present Teeth and gingiva: dentition normal Eyes: General: appearance normal, both eyes and all related structures Pupils: Equal, round and reactive pupils present Resp: Effort & Inspection: normal respiratory effort Cardio: Rate: regular rate Rhythm: regular rhythm GI: Palpation (GI): Soft to palpation and nontender : General: Yes no CVA tenderness Back/Spine/Pelvis: Back: no CVA tenderness Skin: General skin exam: no rashes or lesions noted Neuro: General: moves all extremities Cranial nerves: Yes Equal, round and reactive pupils present Extrem: Other: left great toe swollen and red and puckered area surrounding nail bed Pulses full no neuropathy Psych: Appearance: grossly normal Results Labs 10/07/22 05:08 10/07/22 05:08 Labs: Short CBC 10/06/22 10/07/22 Range/Units 22:45 05:08 WBC 7.8 5.6 (4.8-10.8) X10*3/uL Hgb 13.9 12.5 (12.0-16.0) g/dl Hct 40.8 36.6 L (37.0-47.0) % Plt Count 267 221 (160-400) X10*3/uL BMP 10/06/22 10/07/22 22:45 05:08 Sodium 140 141 Potassium 3.9 4.0 Chloride 100 109 H Carbon Dioxide 26 22 BUN 23 H 15 Creatinine 0.73 0.66 Calcium 10.5 H D 9.6 D Assessment and Plan (1) Toe osteomyelitis, left: Status: Acute She has not improved with po antibiotics. She has possible staph including MRSA. She has possible anerobes and gram negatives also. Plan Continue antibiotics,either Cefepime/Vancomycin and flagyl or piperacillin/Vancomycin. She will likely take Ertapenem for six weeks with weekly creatinine and Vancomycin level. Follow Podiatry and with me. Treatment suppressive and not curative. Time Spent With Patient Time: Total time managing care of this patient today ____ minutes.
[2022-10-08 03:33] VITALS: BP 95/54; PULSE 55; RESP 16; TEMP 36; O2SAT 95
[2022-10-08 05:22] LABS: Estimated Average Glucose 100 mg/dL; Hemoglobin A1c % 5.1 %
[2022-10-08 06:06] LABS: Hematocrit 37.5 % (37.0-47.0); Hemoglobin 12.6 g/dl (12.0-16.0); Mean Corpuscular HGB Conc 33.6 g/dl (31.0-35.0); Mean Corpuscular Hemoglobin 31.6 pg (27.0-33.0); Platelet Count 233 X10*3/uL (160-400); Red Blood Count 3.99 X10*6/uL (4.20-5.50); Red Cell Distribution Width 11.6 % (11.0-16.0)
[2022-10-08 06:13] LABS: Anion Gap 15 (12-20); Blood Urea Nitrogen 12 mg/dL (9-16); C Reactive Protein < 0.04 mg/dL (< or = 0.50); Calcium 9.5 mg/dL (8.4-10.2); Carbon Dioxide 22 mmol/L (22-29); Chloride 107 mmol/L (96-108); Creatinine Clr Calc Pharmacy 87.5; Estimated Glomerular Filt Rate > 60; Glucose Fasting 97 mg/dL (60-99); Sodium 140 mmol/L (135-145)
[2022-10-08 07:11] VITALS: BP 110/56; PULSE 53; RESP 16; TEMP 36.6; O2SAT 98
--- NOTE | 2022-10-08 08:11 | PM.EVENT ---
Event Note Date of Service: 10/08/22 Event Note: she will likely take Ertapenem for six weeks or take Vancomycin with weekly levels if MRSA or other resistant infection Time Spent With Patient Time: Total time managing care of this patient today ____ minutes.
[2022-10-08] MEDS: 0.9 % Sodium Chloride Flush 3 ML SYRINGE IVFLUSH ×3 (08:39→21:22)
[2022-10-08] MEDS: LORazepam 0.5 MG TABLET PO ×2 (08:44→21:22)
[2022-10-08] MEDS: Acetaminophen 325 MG TABLET 650 MG PO ×2 (08:44→17:39)
[2022-10-08] MEDS: vancomycin HCL 1,000 MG in 0.9 % Sodium Chloride 250 ML 270 MG IV (11:27)
--- NOTE | 2022-10-08 11:42 | PM.DS ---
DS: Providers Provider Date of Service: 10/08/22 Date of admission: 10/06/22 23:20 Primary care physician: Mary Tenorio MD Consults: 10/07/22 10:42 Consult to Infectious Diseases Routine Consulting [place] [facility] [place] Reason for consultation: ?OM DS: Diagnosis Discharge Diagnosis (1) Toe osteomyelitis, left: Status: Acute DS: Summary Hospital Course Hospital Course: from initial hpi: 51-year-old female with pertinent history of anxiety presents to the emergency department for evaluation of left toe swelling, redness and pain.? Patient states that about 3 weeks prior to presentation, left great toenail was caught in her 's boot.? She went to a preschool assistant director who removed the nail.? Subsequently it got infected and patient was put on Keflex.? No improvement was noted and patient's antibiotic was changed to Augmentin.? Patient states she presents today as her left great toe continues to be red, swollen and tender.? No similar history in the past.? Does not have diabetes.? Patient denies fever, chills, chest discomfort, palpitations, shortness of breath, abdominal pain, changes in urinary or bowel habits. In the emergency department, imaging concerning for osteomyelitis hospital course: Patient was admitted for left 1st toe cellulitis with concern for osteomyelitis. This was confirmed with MRI which shows showed small abscess. Plan is for 6 weeks of IV ertapenem and follow-up with Wound Care (in case I and D needed) and Infectious Disease. For anxiety was continue on Ativan. Time Spent with Patient Time attestation: Total time managing care of this patient today ____ minutes. Discharge coordination time: Greater than 30 minutes Quality: Safe Use of Opioids Does Pt have an Active Cancer Diagnosis on the Problem List?: No Quality: Stroke Does the patient have a stroke diagnosis?: No Physical Exam Vital Signs: Vital Signs: Last Vital Signs Temp 97.8 F 10/08/22 07:11 Pulse 53 10/08/22 07:11 Resp 16 10/08/22 07:11 BP 110/56 L 10/08/22 07:11 Pulse Ox 98 10/08/22 07:11 O2 Del Method Room Air 10/08/22 07:11 BMI result Body Mass Index 24.0 Const: General: cooperative HEENT: Head: Yes normal to inspection Face and sinus: Yes normal facial exam Mouth: Normal oral and palatal mucosa present Teeth and gingiva: dentition normal Eyes: General: appearance normal, both eyes and all related structures Pupils: Equal, round and reactive pupils present Resp: Effort & Inspection: normal respiratory effort Cardio: Rate: regular rate Rhythm: regular rhythm GI: Palpation (GI): Soft to palpation and nontender : General: Yes no CVA tenderness Back/Spine/Pelvis: Back: no CVA tenderness Skin: General skin exam: no rashes or lesions noted Neuro: General: moves all extremities Cranial nerves: Yes Equal, round and reactive pupils present Extrem: Other: left great toe swollen and red and puckered area surrounding nail bed Pulses full no neuropathy Psych: Appearance: grossly normal DS: Data Data Completed and Pending Labs on day of discharge: Laboratory Results - last 24 hr 10/07/22 10/08/22 10/08/22 05:08 05:06 05:06 WBC 5.0 RBC 3.99 L Hgb 12.6 Hct 37.5 MCV 94.0 MCH 31.6 MCHC 33.6 RDW 11.6 Plt Count 233 MPV 9.0 L Absolute Nucleated RBC 0.000 Nucleated RBC % (auto) 0.0 Sodium 140 Potassium 4.0 Chloride 107 Carbon Dioxide 22 Anion Gap 15 BUN 12 Creatinine 0.70 Estim Creat Clear Calc 87.5 Estimated GFR > 60 Fasting Glucose 97 Estimat Average Glucose 100 Hemoglobin A1c % 5.1 Calcium 9.5 C-Reactive Protein < 0.04 Preliminary micro results at discharge 10/06/22 23:09 Blood Culture - Preliminary Blood - Venous No growth after 24 hours. 10/06/22 22:45 Blood Culture - Preliminary Blood - Venous No growth after 24 hours. Discharge Plan Discharge Anticipated Discharge Date/Time: 10/08/22 09:32 Patient Disposition: Home, Self-Care Discharge Diagnosis: OM Referrals: Mary Tenorio MD [Primary Care Provider] - 1 Week Krys Garcia MD [Physician] - 1 Week Katie Darling MD [Physician] - 1 Week (left first toe OM) Discharge Medications: New ertapenem 1 gram recon soln 1 g IV DAILY 42 Days Qty: 10 0RF Rx Instructions: end november 16, 2022 Continued acetaminophen [Tylenol Extra Strength] 500 mg tablet 1,000 mg PO QID PRN (Reason: fever or pain) Qty: 14 0RF ibuprofen 200 mg Tablet 400 mg PO Q6H PRN (Reason: Pain) lorazepam 0.5 mg tablet 0.5 mg PO BID PRN (Reason: Anxiety) melatonin 5 mg capsule 5 mg PO DAILY Rx Instructions: At bedtime with food Discontinued amoxicillin-pot clavulanate 875-125 mg tablet 1 tab PO BID Discharge Orders: Discharge Order (Routine); Ordered 10/08/22 Ordered By: Cy Lewis Diet: Advance to usual diet Activity on Discharge: As tolerated Stand Alone Forms: Patient Portal Discharge page Care Plan Goals: recovery Health Concerns: OM Plan of Treatment: follow up with id and wound care, 6 weeks iv ertapenem, weekly labs Assessment: see above
--- NOTE | 2022-10-08 11:51 | HO.PM.IMPN ---
Subjective Subjective Date of Service: 10/08/22 Interval History: no change Physical Exam Vital Signs: Vital Signs: Last Vital Signs Temp 97.8 F 10/08/22 07:11 Pulse 53 10/08/22 07:11 Resp 16 10/08/22 07:11 BP 110/56 L 10/08/22 07:11 Pulse Ox 98 10/08/22 07:11 O2 Del Method Room Air 10/08/22 07:11 BMI result Body Mass Index 24.0 Const: General: cooperative HEENT: Head: Yes normal to inspection Face and sinus: Yes normal facial exam Mouth: Normal oral and palatal mucosa present Teeth and gingiva: dentition normal Eyes: General: appearance normal, both eyes and all related structures Pupils: Equal, round and reactive pupils present Resp: Effort & Inspection: normal respiratory effort Cardio: Rate: regular rate Rhythm: regular rhythm GI: Palpation (GI): Soft to palpation and nontender : General: Yes no CVA tenderness Back/Spine/Pelvis: Back: no CVA tenderness Skin: General skin exam: no rashes or lesions noted Neuro: General: moves all extremities Cranial nerves: Yes Equal, round and reactive pupils present Extrem: Other: left great toe swollen and red and puckered area surrounding nail bed Pulses full no neuropathy Psych: Appearance: grossly normal Objective Data Active Medications Acetaminophen (Acetaminophen 325 Mg Tablet) 650 mg PO Q6H PRN PRN Reason: Pain, Mild (Pain Scale 1-3) Last Admin: 10/08/22 08:44 Dose: 650 mg Documented By: KELTON Enoxaparin Sodium (Enoxaparin Sodium 40 Mg/0.4 Ml Syringe) 40 mg SUBCUT Q24H [facility] Last Admin: 10/08/22 08:39 Dose: Not Given Documented By: KELTON Non-Admin Reason: Patient Refused Vancomycin HCl 1,000 mg/ (Sodium Chloride) 270 mls @ 270 mls/hr IV Q12H [facility] Last Admin: 10/08/22 11:27 Dose: 270 mls/hr Documented By: KELTON Ertapenem 1 gm/ Sodium (Chloride) 50 mls @ 100 mls/hr IV ONCE PRN PRN Reason: predischarge Lorazepam (Lorazepam 0.5 Mg Tablet) 0.5 mg PO BID PRN PRN Reason: Anxiety Last Admin: 10/08/22 08:44 Dose: 0.5 mg Documented By: KELTON Lorazepam (Lorazepam 2 Mg/Ml Vial) 1 mg IVPUSH ONCE PRN PRN Reason: mri Last Admin: 10/07/22 12:02 Dose: 1 mg Documented By: JESSY Melatonin (Melatonin 3 Mg Tablet) 6 mg PO BEDTIME PRN PRN Reason: Insomnia Last Admin: 10/07/22 20:12 Dose: 6 mg Documented By: JEFF Ondansetron HCl (Ondansetron Hcl 4 Mg/2 Ml Vial) 4 mg IVPUSH Q8H PRN PRN Reason: Nausea and Vomiting Pharmacy Consult (Consult Rx Perform Med Rec) 1 each MISCELLANE ONCE PRN PRN Reason: Consult order Pharmacy Consult (Consult Rx Vancomycin Dosing) 1 each MISCELLANE DAILY PRN PRN Reason: Consult order Sodium Chloride (0.9 % Sodium Chloride Flush 3 Ml Syringe) [facility] Admin: 10/08/22 08:39 Dose: 3 ml Documented By: KELTON Labs 10/08/22 05:06 10/08/22 05:06 Labs: Laboratory Results - last 24 hr 10/07/22 10/08/22 10/08/22 05:08 05:06 05:06 MCV 94.0 MCH 31.6 MCHC 33.6 RDW 11.6 Plt Count 233 MPV 9.0 L Absolute Nucleated RBC 0.000 Nucleated RBC % (auto) 0.0 Anion Gap 15 Estim Creat Clear Calc 87.5 Estimated GFR > 60 Fasting Glucose 97 Estimat Average Glucose 100 Hemoglobin A1c % 5.1 Calcium 9.5 C-Reactive Protein < 0.04 Microbiology Microbiology Results: Microbiology 10/06/22 23:09 Blood Culture - Preliminary Blood - Venous No growth after 24 hours. 10/06/22 22:45 Blood Culture - Preliminary Blood - Venous No growth after 24 hours. Assessment and Plan (1) Toe osteomyelitis, left: Status: Acute Plan 51F PMH anxiety presented with left first toe non healing erythema, pain left first toe cellulitis and OM on MRI with 4mm small abscess ID appreciated blood cultures negative plan for picc and 6 weeks iv ertapenem end nov 16, 2022 anxiety ativan dvt prophylaxis - lovenox full code reason for continued hospitalization:need for iv abx [facility] Time Spent With Patient Time: Total time managing care of this patient today ____ minutes. Quality Stroke Does the patient have a stroke diagnosis?: No VTE Prior VTE?: No VTE Risk Level:: Medical - moderate - high VTE Device Contraindication: Treatment Not Indicated VTE Drug Contraindication: N/A - Med Ordered
--- NOTE | 2022-10-08 13:33 | PM.EVENT ---
Event Note Date of Service: 10/08/22 Event Note: blood cultures no growth over 36hrs, d/w ID, okay to proceed with picc line Time Spent With Patient Time: Total time managing care of this patient today ____ minutes.
--- NOTE | 2022-10-08 15:22 | MHC.CM.PN ---
Addendum entered by Juanis Jeffers 10/08/22 16:41: Patient has not returned from PICC line insertion. [facility] liason will return tomorrow for IV ABX administration management education. Addendum entered by Juanis Jeffers 10/08/22 15:28: [facility] has accepted the case for Wednesday. The patient [place] [facility] [place]. [facility] will start services on Wednesday to administer the next dose. Original Note: FEMALE 51 DX OSTEO R GR TOE PATIENT LIVES W SPOUSE SHE IS INDEPENDENT. DP [facility] FOR IV ABX. [facility] 2-3 DAYS OUT. ADDITIONAL REFERRALS HAVE BEEN SENT. A COPY OF THE PATIENTS HCP HAS BEEN REQUESTED. [facility] WILL SEE PATIENT TODAY FOR INFUSION EDUCATION. [facility] TBD. P IS ORDERED FOR PICC LINE INSERTION IN IR TODAY.
[2022-10-08 16:00] VITALS: BP 110/56; PULSE 56; RESP 19; TEMP 36.4; O2SAT 96
--- NOTE | 2022-10-08 16:50 | P.PICC_ITS ---
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 Following completion of Greenleaf Protocol the skin and soft tissues were anesthetized with 1% Lidocaine plain. Using ultrasound guidance, right basilic vein access was obtained twice by Karen Alas RN, but unable to pass guidewire. Right basilic vein was accessed by Desiree Trinidad RN. Over an 0.018 wire through peel-away sheath, a 4FR single lumen PASV PICC line was positioned. Catheter length is 38 CM internal length, at the 0 CM juliann--external length, for a total trimmed length of 38 CM. The procedure was performed in S272. Tip verification was performed by Dru Dotson with Sherlock 3CG. Tip located in SVC. Ultrasound was used to document vein patency and for needle entry. A formal ultrasound picture and cardiac rhythm strip was recorded. [employer] has released the line for use and it is currently dressed with a StatLock, Tegaderm, and CHG disc. Verification has been performed for blood return and line patency. Arm Circumference: 27 CM Equipment: [employer] PowerPICC SOLO Catheter Type: 4FR single lumen PASV PICC Lot #: [id number]
[2022-10-08 19:26] VITALS: BP 103/58; PULSE 65; RESP 18; TEMP 36.8; O2SAT 98
[2022-10-08 20:00] VITALS: BP 103/58; PULSE 65; RESP 18; TEMP 36.8; O2SAT 98
[2022-10-08] MEDS: Melatonin 3 MG TABLET 6 MG PO (21:22)
[2022-10-08] MEDS: 0.9 % Sodium Chloride Flush 10 ML SYRINGE 5 ML IVFLUSH (21:22)
[2022-10-08] MEDS: Milk of Magnesia 30 ML ORAL.SUSP PO (21:32)
[2022-10-08 21:57] LABS: Vancomycin Trough 10.7 mcg/mL (10.0-20.0)
--- NOTE | 2022-10-08 22:03 | HE.PHANOTE ---
RE: VANCO Patients level came back tonight at 10.7. Will increase to 1250 mg Q12H, predicted AUC 521 mg/L/hr. Next draw will be after 2 doses of the 1250 mg @2100 on 10/09. Renal function stable
[2022-10-08] MEDS: vancomycin HCL 1,250 MG in 0.9 % Sodium Chloride 250 ML 166.67 MG IV (22:22)
[2022-10-09] MEDS: Acetaminophen 325 MG TABLET 650 MG PO ×2 (00:02→08:54)
[2022-10-09 04:00] VITALS: BP 101/54; PULSE 55; RESP 18; TEMP 36.3; O2SAT 95
[2022-10-09 06:59] LABS: Creatinine Clr Calc Pharmacy 87.5; Estimated Glomerular Filt Rate > 60
[2022-10-09 07:49] VITALS: BP 107/58; PULSE 63; RESP 18; TEMP 36.9; O2SAT 96
[2022-10-09] MEDS: Enoxaparin Sodium 40 MG/0.4 ML SYRINGE SUBCUT (08:49)
[2022-10-09] MEDS: 0.9 % Sodium Chloride Flush 10 ML SYRINGE 5 ML IVFLUSH ×2 (08:52→14:04)
[2022-10-09] MEDS: 0.9 % Sodium Chloride Flush 3 ML SYRINGE IVFLUSH (08:52)
--- NOTE | 2022-10-09 10:37 | MHC.CM.PN ---
DP: PT HAS BEEN MEDICALLY CLEARED FOR DC HOME WITH NEW [facility] FOR [place]. [facility] COMING AT 11 AM TO DO A TEACH WITH PT AND . [facility] NOTIFIED OF DC AND WILL DO SOC TOMORROW. [facility] WILL TRANSPORT HOME
[2022-10-09] MEDS: Ertapenem Sodium 1 GM in 0.9 % Sodium Chloride 50 ML IV (13:22)
== END 2022-10-09 14:37 | disposition home health service (06) | DRG 344 ==
LOC: HO.ED 23:39 → HO.EDOVER 23:50 → HO.S3 10-07 11:10
PROVIDERS: Admitting Provider Student in an Organized Health Care Education/Training Program; Emergency Provider Emergency Medicine; PCP Internal Medicine; Visit Provider Internal Medicine
DX: M86.172 Other acute osteomyelitis, left ankle and foot (principal); K90.0 Celiac disease; F41.9 Anxiety disorder, unspecified; L02.612 Cutaneous abscess of left foot; L03.032 Cellulitis of left toe; Z87.891 Personal history of nicotine dependence; Z79.899 Other long term (current) drug therapy
CPT/HCPCS: 36415; 36573; 73660; 73720; 80048; 80202; 82565; 83036; 83605; 85025; 85027; 85652; 86140; 87040; 99285; A9585; C1751; J1335; J1650; J2060; J2543; J3370; J3371

== ENCOUNTER → 2022-10-06 23:20 | Outpatient (BNV) | payer BC, MEDICARE, SELFPAY | PROVIDERS: Admitting Provider Student in an Organized Health Care Education/Training Program; Emergency Provider Emergency Medicine; PCP Internal Medicine; Visit Provider Internal Medicine | DX: M86.9 Osteomyelitis, unspecified (principal) | CPT/HCPCS: 99222; 99232; 99499 ==

== ENCOUNTER → 2022-10-06 23:20 | Outpatient (BNV) | payer BC, MEDICARE, SELFPAY | PROVIDERS: Admitting Provider Student in an Organized Health Care Education/Training Program; Emergency Provider Emergency Medicine; PCP Internal Medicine; Visit Provider Student in an Organized Health Care Education/Training Program | DX: M86.9 Osteomyelitis, unspecified (principal) | CPT/HCPCS: 99222; 99232; 99239 ==

== ENCOUNTER 2022-10-15 14:00 | Outpatient (REF) | payer BC, MEDICARE, SELFPAY ==
[2022-10-15 16:41] LABS: MANUAL DIFF FLAG NO
[2022-10-15 16:44] LABS: Basophils Percent Auto 0.6 % (0-2); Eosinophils Absolute Auto 0.1 X10*3/uL (0.0-0.4); Eosinophils Percent Auto 1.3 % (0-4); Hematocrit 41.8 % (37.0-47.0); Hemoglobin 14.3 g/dl (12.0-16.0); Lymphocytes Absolute Auto 2.4 X10*3/uL (1.2-4.9); Lymphocytes Percent Auto 46.6 % (20-40); Mean Corpuscular HGB Conc 34.2 g/dl (31.0-35.0); Mean Corpuscular Hemoglobin 32.1 pg (27.0-33.0); Mean Corpuscular Volume 93.9 fL (80.0-98.0); Mean Platelet Volume 9.5 fL (9.4-12.3); Monocytes Absolute Auto 0.4 X10*3/uL (0.1-1.2); Monocytes Percent Auto 6.7 % (2-11); Neutrophils Absolute Auto 2.3 x10*3/uL (2.0-8.3); Neutrophils Percent Auto 44.8 % (45-73); Platelet Count 271 X10*3/uL (160-400); Red Blood Count 4.45 X10*6/uL (4.20-5.50); Red Cell Distribution Width 11.7 % (11.0-16.0); White Blood Count 5.2 X10*3/uL (4.8-10.8)
[2022-10-15 17:00] LABS: Blood Urea Nitrogen 12 mg/dL (9-16)
== END 2022-10-15 14:01 | disposition home or self-care (01) ==
LOC: HO.HVNA 14:00
PROVIDERS: PCP Internal Medicine; Visit Provider Internal Medicine
DX: M86.9 Osteomyelitis, unspecified (principal)
CPT/HCPCS: 36415; 84520; 85025

== ENCOUNTER 2022-10-16 11:18 | Outpatient (AMB) | payer BC, MEDICARE, SELFPAY ==
[2022-10-16 11:35] VITALS: BP 102/60; PULSE 67; O2SAT 98; BMI 24.0
--- NOTE | 2022-10-16 11:35 | MHC.OFFVIS ---
Intake Vital Signs 10/16/22 11:35 Height 5 ft 4 in Weight 140 lb BMI 24.0 BP 102/60 Pulse 67 Pulse Source Pulse Oximeter Pulse Oximetry (%) 98 Intake Visit Reasons: ref.[facility],Osteomyelitis Allergies ciprofloxacin [Cipro] Allergy (Intermediate, Verified 10/16/22 11:36) rash hydromorphone [Dilaudid] Adverse Reaction (Intermediate, Verified 10/16/22 11:36) hallucinations shellfish Allergy (Intermediate, Uncoded 09/29/22 09:31) rash Wellbutrin Allergy (Intermediate, Uncoded 09/29/22 09:31) rash Zyban Allergy (Intermediate, Uncoded 09/29/22 09:31) rash dairy Adverse Reaction (Intermediate, Uncoded 09/29/22 09:31) stomach upset gluten Adverse Reaction (Intermediate, Uncoded 09/29/22 09:31) GI intolerance HPI ref.[facility],Osteomyelitis HPI Details She has left foot OM and area is scaly and healing. There is no specific organism Foot is still painful and she is seeking help for that. [facility] Medical History BRCA2 gene mutation positive Celiac disease Depression with anxiety Family history of early CAD Fibromyalgia History of multinodular goiter Intermittent palpitations Lumbar degenerative disc disease Lumbar spondylosis Malaise and fatigue Osteoporosis Seborrheic dermatitis Surgical menopause Surgical History H/O partial thyroidectomy History of abdominoplasty History of reconstruction of both breasts Hx of bilateral mastectomy Status post total abdominal hysterectomy and bilateral salpingo-oophorectomy (EBONY-BSO) Family History Father Hypertension Mental health disorder Heart attack History of open heart surgery Mother Breast cancer Mental health disorder Social History Household Members: Spouse Household Members Other:: 3 Housing: House Patient Tobacco Use Status: Former Tobacco user Years Smoked: 5 yrs e-Cigarette/Vaping Use: Never Used Substance Use Type: Marijuana service: No Current occupational status: unemployed Cognitive needs: No Hearing needs: No Vision needs: No Review of Systems Const All systems reviewed & are unremarkable except as noted in HPI and below Physical Exam Vital Signs: Last Vital Signs Pulse 67 10/16/22 11:35 BP 102/60 10/16/22 11:35 Pulse Ox 98 10/16/22 11:35 BMI result Body Mass Index 24.0 Const Other: General: cooperative Orientation/consciousness: patient oriented x3 HEENT Head: Yes normal to inspection Mouth: Normal oral and palatal mucosa present Eyes General: appearance normal, both eyes and all related structures Pupils: Equal, round and reactive pupils present Resp Effort & Inspection: normal respiratory effort Cardio Rate: regular rate Rhythm: regular rhythm GI Palpation (GI): Soft to palpation and nontender General: Yes no CVA tenderness Back/Spine/Pelvis Back: no CVA tenderness Skin General skin exam: no rashes or lesions noted Neuro General: patient oriented x3 Cranial nerves: Yes CN's II-XII intact bilaterally and Yes Equal, round and reactive pupils present Extrem Other: toe scaly Psych Appearance: grossly normal Assessment & Plan Assessment & Plan (1) Toe osteomyelitis, left: Comment: She has OM foot No specific organism is present. Code(s): M86.9 - Osteomyelitis, unspecified Plan: Would continue Ertapenem for six weeks. Check CBC and creatinine weekly. ?Pain clinic help foot pain. See in two weeks. (2) Acute osteomyelitis of toe: Code(s): M86.179 - Other acute osteomyelitis, unspecified ankle and foot Coding Level of Care Code Est Pt Level 3 (10816) Diagnoses Toe osteomyelitis, left M86.9 Acute osteomyelitis of toe M86.179
== END 2022-10-16 12:54 | disposition home or self-care (01) ==
LOC: HO.HID 11:18
PROVIDERS: PCP Internal Medicine; Visit Provider Internal Medicine
DX: M86.9 Osteomyelitis, unspecified (principal); M86.179 Other acute osteomyelitis, unspecified ankle and foot
CPT/HCPCS: 99213

== ENCOUNTER → 2022-10-16 11:18 | Outpatient (BNVA) | payer BC, MEDICARE, SELFPAY | PROVIDERS: PCP Internal Medicine; Visit Provider Internal Medicine ==

== ENCOUNTER 2022-10-20 12:39 | Outpatient (RCR) | payer BC, MEDICARE, SELFPAY | END 2022-12-08 16:11 | disposition home or self-care (01) | LOC: HO.WCC 12:39 | PROVIDERS: PCP Internal Medicine; Visit Provider Physician Assistant | DX: L97.529 Non-pressure chronic ulcer of other part of left foot with unspecified severity (principal); M86.172 Other acute osteomyelitis, left ankle and foot; R60.9 Edema, unspecified; S92.422D Displaced fracture of distal phalanx of left great toe, subsequent encounter for fracture with routine healing; Z79.2 Long term (current) use of antibiotics | CPT/HCPCS: 99213 ==

== ENCOUNTER 2022-10-22 11:00 | Outpatient (REF) | payer BC, MEDICARE, SELFPAY ==
[2022-10-22 17:36] LABS: MANUAL DIFF FLAG NO
[2022-10-22 17:43] LABS: Basophils Percent Auto 0.8 % (0-2); Eosinophils Absolute Auto 0.1 X10*3/uL (0.0-0.4); Hematocrit 41.8 % (37.0-47.0); Hemoglobin 14.1 g/dl (12.0-16.0); Imm Gran Abs Auto 0.01 X10*3/uL (0.00-0.03); Imm Gran Pct Auto 0.2 % (0.0-0.4); Lymphocytes Absolute Auto 2.2 X10*3/uL (1.2-4.9); Lymphocytes Percent Auto 46.1 % (20-40); Mean Corpuscular HGB Conc 33.7 g/dl (31.0-35.0); Mean Corpuscular Hemoglobin 31.5 pg (27.0-33.0); Mean Corpuscular Volume 93.5 fL (80.0-98.0); Mean Platelet Volume 9.6 fL (9.4-12.3); Monocytes Absolute Auto 0.3 X10*3/uL (0.1-1.2); Monocytes Percent Auto 6.6 % (2-11); Neutrophils Absolute Auto 2.2 x10*3/uL (2.0-8.3); Neutrophils Percent Auto 45.3 % (45-73); Platelet Count 269 X10*3/uL (160-400); Red Blood Count 4.47 X10*6/uL (4.20-5.50); Red Cell Distribution Width 11.7 % (11.0-16.0); White Blood Count 4.8 X10*3/uL (4.8-10.8)
[2022-10-22 17:50] LABS: Blood Urea Nitrogen 11 mg/dL (9-16)
== END 2022-10-22 11:01 | disposition home or self-care (01) ==
LOC: HO.HVNA 11:00
PROVIDERS: PCP Internal Medicine; Visit Provider Internal Medicine
DX: M86.9 Osteomyelitis, unspecified (principal)
CPT/HCPCS: 36415; 84520; 85025

== ENCOUNTER 2022-10-27 10:26 | Outpatient (AMB) | payer BC, MEDICARE, SELFPAY ==
[2022-10-27 10:29] VITALS: BP 112/62; PULSE 66; O2SAT 98; BMI 24.0
--- NOTE | 2022-10-27 10:29 | A.OFFPC_ITS ---
Vital Signs 10/27/22 10:29 Height 5 ft 4 in Weight 140 lb BMI 24.0 BP 112/62 Blood Pressure Location Lt brachial Position Sitting Pulse 66 Pulse Source Pulse Oximeter Pulse Oximetry (%) 98 Intake Visit Reasons: f/u Lt grt toe f/u Intake Note: pt is here for f/u left toe [employer]utter Required: No Accompanied by: Self / Same As Patient Allergies ciprofloxacin [Cipro] Allergy (Intermediate, Verified 10/27/22 11:02) rash hydromorphone [Dilaudid] Adverse Reaction (Intermediate, Verified 10/27/22 11:02) hallucinations shellfish Allergy (Intermediate, Uncoded 10/27/22 11:02) rash Wellbutrin Allergy (Intermediate, Uncoded 10/27/22 11:02) rash Zyban Allergy (Intermediate, Uncoded 10/27/22 11:02) rash dairy Adverse Reaction (Intermediate, Uncoded 10/27/22 11:02) stomach upset gluten Adverse Reaction (Intermediate, Uncoded 10/27/22 11:02) GI intolerance Medication List - Last Reconciled 10/27/22 by Mary Tenorio MD acetaminophen (Tylenol Extra Strength) 1,000 mg (2 x 500 mg) PO QID PRN ertapenem 1 g IV DAILY 6 weeks ibuprofen 400 mg PO Q6H PRN lorazepam 0.5 mg PO BID PRN melatonin 5 mg PO DAILY Tobacco use date assessed: 07/08/22 Dental Screening Dental Screen Date: 10/27/22 Did you have a dental visit in the last 12 months?: Yes Did you have a dental problem in the last 6 months where you did not have access to dental care?: No Was dental information given to patient?: Patient has dentist HPI f/u Lt grt toe f/u HPI Details 51-year-old lady with osteomyelitis left big toe currently on Ertapenem. IV daily for 6 weeks, until 11/16/2022, currently being followed by infectious disease clinic, here today for follow-up. Patient states that pain i n left big toe has resolved, still having some swelling around big toe, no discharge seen. She had recent labs done which showed normal white blood cell count, no anemia, and BUN within normal limits. Laboratory Tests 10/22/22 10/22/22 11:00 11:00 WBC 4.8 Hgb 14.1 Hct 41.8 RDW 11.7 Plt Count 269 Neut % (Auto) 45.3 Lymph % (Auto) 46.1 H BUN 11 PFSH Medical History BRCA2 gene mutation positive Celiac disease Depression with anxiety Family history of early CAD Fibromyalgia History of multinodular goiter Intermittent palpitations Lumbar degenerative disc disease Lumbar spondylosis Malaise and fatigue Osteoporosis Seborrheic dermatitis Surgical menopause Surgical History H/O partial thyroidectomy History of abdominoplasty History of reconstruction of both breasts Hx of bilateral mastectomy Status post total abdominal hysterectomy and bilateral salpingo-oophorectomy (EBONY-BSO) Family History Father Hypertension Mental health disorder Heart attack History of open heart surgery Mother Breast cancer Mental health disorder Social History Household Members: Spouse Household Members Other:: 3 Housing: House Patient Tobacco Use Status: Former Tobacco user Years Smoked: 5 yrs e-Cigarette/Vaping Use: Never Used Substance Use Type: Marijuana service: No Current occupational status: unemployed Cognitive needs: No Hearing needs: No Vision needs: No Questionnaire Thrive Questionnaire Date Thrive assessed: 10/08/22 KRYSTYNA-7 AMB Questionnaire KRYSTYNA-7 Date KRYSTYNA - 7 assessed: 05/27/22 Source: Developed by Drs. Sukhdeep Veronica, Maura Dodd, Carlos Alberto Castro and colleagues, with an educational liset from [employer]. Review of Systems Const Denies chills, Denies fever(s) and Denies weakness ENT Denies dizziness and Denies hearing loss Card Denies chest pain, Denies chest pain with activity, Denies rapid heart rate, Denies lightheadedness, Denies dyspnea and Denies orthopnea Resp Denies cough, Denies excessive phlegm production, Denies dyspnea and Denies wheezing GI Denies abdominal pain, Denies hematochezia, Denies change in bowel habits, Denies change in stool character, Denies heartburn, Denies nausea and Denies vomiting Musc Reports as per HPI, Denies numbness and Denies tingling Skin/Breast Reports as per HPI Neuro Denies dizziness, Denies numbness, Denies tingling and Denies weakness Mio/Lymph Reports no additional complaints Aller/Immun Denies wheezing Physical exam (Primary Care) Vital Signs: Last Vital Signs Pulse 66 10/27/22 10:29 BP 112/62 10/27/22 10:29 Pulse Ox 98 10/27/22 10:29 BMI result Body Mass Index 24.0 Tobacco/Smoking Status: Tobacco use Status Tobacco use date assessed 07/08/22 10/27/22 10:35 Patient Tobacco Use Status Former Tobacco user 10/27/22 10:35 e-Cigarette/Vaping Use Never Used 10/27/22 10:35 Thrive Assessment: Date of Thrive Assessment Date Thrive assessed 10/08/22 10/27/22 10:35 Const Other: Alert oriented x3, ambulatory but walking more on her left heel, avoiding pressure on left great toe Orientation/consciousness: patient oriented x3 HENMT Head: Yes normocephalic Mouth: Normal oral and palatal mucosa present and moist mucous membranes Neck Neck: Yes full ROM, Yes no lymphadenopathy and Yes supple Resp Auscultation: clear to auscultation bilaterally Cardio Other: S1-S2 present regular rate and rhythm Skin Other: Dry erythematous skin surrounding left big toe, with granulation tissue noted on nail bed left big toe, no active drainage Neuro General: patient oriented x3, gait normal, tone normal, moves all extremities, Normal light touch and pain sensation, no focal motor deficits and CN's II-XI intact bilaterally Extrem Other: Mild swelling noted left big toe, nontender to palpation, not warm to touch, no active drainage coming from nail bed Assessment and Plan Assessment & Plan (1) Toe osteomyelitis, left: Comment: She has OM foot No specific organism is present. Code(s): M86.9 - Osteomyelitis, unspecified Plan: Currently on IV Ertapenem, to be completed until 11/16/2022 per patient, has VNA coming in to administer medication. No more pain around toe, per patient advised to keep elevating affected extremity, has an appointment for follow-up with scheduled for 10/30/2022 Coding Level of Care Code Est Pt Level 3 (04359) Diagnoses Toe osteomyelitis, left M86.9
== END 2022-10-27 12:01 | disposition home or self-care (01) ==
PROVIDERS: PCP Internal Medicine; Visit Provider Internal Medicine
DX: M86.9 Osteomyelitis, unspecified (principal)
CPT/HCPCS: 99213

== ENCOUNTER 2022-10-28 14:52 | Outpatient (REF) | payer BC, MEDICARE, SELFPAY ==
[2022-10-28 14:57] LABS: MANUAL DIFF FLAG NO
[2022-10-28 15:30] LABS: Basophils Percent Auto 0.7 % (0-2); Eosinophils Percent Auto 0.7 % (0-4); Hematocrit 40.5 % (37.0-47.0); Hemoglobin 13.8 g/dl (12.0-16.0); Imm Gran Abs Auto 0.01 X10*3/uL (0.00-0.03); Imm Gran Pct Auto 0.2 % (0.0-0.4); Lymphocytes Absolute Auto 2.3 X10*3/uL (1.2-4.9); Lymphocytes Percent Auto 39.5 % (20-40); Mean Corpuscular HGB Conc 34.1 g/dl (31.0-35.0); Mean Corpuscular Hemoglobin 31.7 pg (27.0-33.0); Mean Corpuscular Volume 92.9 fL (80.0-98.0); Mean Platelet Volume 9.6 fL (9.4-12.3); Monocytes Absolute Auto 0.3 X10*3/uL (0.1-1.2); Monocytes Percent Auto 5.8 % (2-11); Neutrophils Absolute Auto 3.1 x10*3/uL (2.0-8.3); Neutrophils Percent Auto 53.1 % (45-73); Platelet Count 235 X10*3/uL (160-400); Red Blood Count 4.36 X10*6/uL (4.20-5.50); Red Cell Distribution Width 11.7 % (11.0-16.0); White Blood Count 5.8 X10*3/uL (4.8-10.8)
[2022-10-28 16:07] LABS: Blood Urea Nitrogen 13 mg/dL (9-16); Estimated Glomerular Filt Rate > 60
== END 2022-10-28 14:53 | disposition home or self-care (01) ==
LOC: HO.HVNA 14:52
PROVIDERS: Visit Provider Internal Medicine
DX: M86.9 Osteomyelitis, unspecified (principal)
CPT/HCPCS: 36415; 82565; 84520; 85025

== ENCOUNTER 2022-10-30 11:18 | Outpatient (AMB) | payer BC, MEDICARE, SELFPAY ==
--- NOTE | 2022-10-30 11:22 | A.OFFVIS_ITS ---
Intake Vital Signs 10/30/22 11:29 Height 5 ft 4 in Weight 140 lb BMI 24.0 BP 98/62 Pulse 61 Pulse Source Pulse Oximeter Pulse Oximetry (%) 98 Intake Visit Reasons: 2 week follow antibiotic Allergies ciprofloxacin [Cipro] Allergy (Intermediate, Verified 10/30/22 11:30) rash hydromorphone [Dilaudid] Adverse Reaction (Intermediate, Verified 10/30/22 11:30) hallucinations shellfish Allergy (Intermediate, Uncoded 10/27/22 11:02) rash Wellbutrin Allergy (Intermediate, Uncoded 10/27/22 11:02) rash Zyban Allergy (Intermediate, Uncoded 10/27/22 11:02) rash dairy Adverse Reaction (Intermediate, Uncoded 10/27/22 11:02) stomach upset gluten Adverse Reaction (Intermediate, Uncoded 10/27/22 11:02) GI intolerance HPI 2 week follow antibiotic HPI Details She has no complaints and feels better. She elevated leg and has less leg pain. She continues on Ertapenem and is done on 11/16/2022. [facility] Medical History BRCA2 gene mutation positive Celiac disease Depression with anxiety Family history of early CAD Fibromyalgia History of multinodular goiter Intermittent palpitations Lumbar degenerative disc disease Lumbar spondylosis Malaise and fatigue Osteoporosis Seborrheic dermatitis Surgical menopause Surgical History H/O partial thyroidectomy History of abdominoplasty History of reconstruction of both breasts Hx of bilateral mastectomy Status post total abdominal hysterectomy and bilateral salpingo-oophorectomy (EBONY-BSO) Family History Father Hypertension Mental health disorder Heart attack History of open heart surgery Mother Breast cancer Mental health disorder Social History Household Members: Spouse Household Members Other:: 3 Housing: House Patient Tobacco Use Status: Former Tobacco user Years Smoked: 5 yrs e-Cigarette/Vaping Use: Never Used Substance Use Type: Marijuana service: No Current occupational status: unemployed Cognitive needs: No Hearing needs: No Vision needs: No Review of Systems Const All systems reviewed & are unremarkable except as noted in HPI and below Physical Exam Vital Signs: Last Vital Signs Pulse 61 10/30/22 11:29 BP 98/62 10/30/22 11:29 Pulse Ox 98 10/30/22 11:29 BMI result Body Mass Index 24.0 Const Other: General: cooperative Orientation/consciousness: patient oriented x3 HEENT Head: Yes normal to inspection Mouth: Normal oral and palatal mucosa present Eyes General: appearance normal, both eyes and all related structures Pupils: Equal, round and reactive pupils present Resp Effort & Inspection: normal respiratory effort Cardio Rate: regular rate Rhythm: regular rhythm GI Palpation (GI): Soft to palpation and nontender General: Yes no CVA tenderness Back/Spine/Pelvis Back: no CVA tenderness Skin General skin exam: no rashes or lesions noted Neuro General: patient oriented x3 Cranial nerves: Yes CN's II-XII intact bilaterally and Yes Equal, round and reactive pupils present Extrem Other: healing,but scaly foot Psych Appearance: grossly normal Assessment & Plan Assessment & Plan (1) Toe osteomyelitis, left: Comment: She has OM foot No specific organism is present. Code(s): M86.9 - Osteomyelitis, unspecified Plan: See two or three weeks. Po Doxycycline likely after one to two months. Coding Level of Care Code Est Pt Level 3 (12052) Diagnoses Toe osteomyelitis, left M86.9
[2022-10-30 11:29] VITALS: BP 98/62; PULSE 61; O2SAT 98; BMI 24.0
== END 2022-10-30 11:58 | disposition home or self-care (01) ==
LOC: HO.HID 11:18
PROVIDERS: PCP Internal Medicine; Visit Provider Internal Medicine
DX: M86.9 Osteomyelitis, unspecified (principal)
CPT/HCPCS: 99213

== ENCOUNTER → 2022-10-30 11:18 | Outpatient (BNVA) | payer BC, MEDICARE, SELFPAY | PROVIDERS: PCP Internal Medicine; Visit Provider Internal Medicine ==

== ENCOUNTER 2022-11-04 16:44 | Outpatient (REF) | payer BC, MEDICARE, SELFPAY ==
[2022-11-04 16:51] LABS: MANUAL DIFF FLAG NO
[2022-11-04 17:51] LABS: Basophils Absolute Auto 0.1 X10*3/uL (0.0-0.2); Basophils Percent Auto 0.8 % (0-2); Eosinophils Absolute Auto 0.1 X10*3/uL (0.0-0.4); Eosinophils Percent Auto 1.2 % (0-4); Hematocrit 37.7 % (37.0-47.0); Hemoglobin 12.7 g/dl (12.0-16.0); Imm Gran Abs Auto 0.01 X10*3/uL (0.00-0.03); Imm Gran Pct Auto 0.2 % (0.0-0.4); Lymphocytes Absolute Auto 2.2 X10*3/uL (1.2-4.9); Lymphocytes Percent Auto 34.2 % (20-40); Mean Corpuscular HGB Conc 33.7 g/dl (31.0-35.0); Mean Corpuscular Hemoglobin 31.4 pg (27.0-33.0); Mean Corpuscular Volume 93.1 fL (80.0-98.0); Mean Platelet Volume 9.2 fL (9.4-12.3); Monocytes Absolute Auto 0.6 X10*3/uL (0.1-1.2); Monocytes Percent Auto 8.7 % (2-11); Neutrophils Absolute Auto 3.5 x10*3/uL (2.0-8.3); Neutrophils Percent Auto 54.9 % (45-73); Platelet Count 223 X10*3/uL (160-400); Red Blood Count 4.05 X10*6/uL (4.20-5.50); Red Cell Distribution Width 11.5 % (11.0-16.0); White Blood Count 6.4 X10*3/uL (4.8-10.8)
[2022-11-04 17:55] LABS: Blood Urea Nitrogen 18 mg/dL (9-16); Estimated Glomerular Filt Rate > 60
== END 2022-11-04 16:45 | disposition home or self-care (01) ==
LOC: HO.HVNA 16:44
PROVIDERS: Visit Provider Internal Medicine
DX: M86.9 Osteomyelitis, unspecified (principal)
CPT/HCPCS: 36415; 82565; 84520; 85025

== ENCOUNTER 2022-11-11 12:36 | Outpatient (REF) | payer BC, MEDICARE, SELFPAY ==
[2022-11-11 16:02] LABS: MANUAL DIFF FLAG NO
[2022-11-11 16:04] LABS: Basophils Percent Auto 0.5 % (0-2); Eosinophils Absolute Auto 0.1 X10*3/uL (0.0-0.4); Hematocrit 39.9 % (37.0-47.0); Hemoglobin 13.3 g/dl (12.0-16.0); Imm Gran Abs Auto 0.01 X10*3/uL (0.00-0.03); Imm Gran Pct Auto 0.2 % (0.0-0.4); Lymphocytes Absolute Auto 2.2 X10*3/uL (1.2-4.9); Lymphocytes Percent Auto 37.3 % (20-40); Mean Corpuscular HGB Conc 33.3 g/dl (31.0-35.0); Mean Corpuscular Hemoglobin 31.5 pg (27.0-33.0); Mean Corpuscular Volume 94.5 fL (80.0-98.0); Mean Platelet Volume 9.3 fL (9.4-12.3); Monocytes Absolute Auto 0.4 X10*3/uL (0.1-1.2); Monocytes Percent Auto 6.5 % (2-11); Neutrophils Absolute Auto 3.3 x10*3/uL (2.0-8.3); Neutrophils Percent Auto 54.5 % (45-73); Platelet Count 266 X10*3/uL (160-400); Red Blood Count 4.22 X10*6/uL (4.20-5.50); Red Cell Distribution Width 11.6 % (11.0-16.0)
[2022-11-11 18:00] LABS: Blood Urea Nitrogen 21 mg/dL (9-16); Estimated Glomerular Filt Rate > 60
== END 2022-11-11 12:37 | disposition home or self-care (01) ==
LOC: HO.HVNA 12:36
PROVIDERS: PCP Internal Medicine; Visit Provider Internal Medicine
DX: M86.9 Osteomyelitis, unspecified (principal)
CPT/HCPCS: 36415; 82565; 84520; 85025

== ENCOUNTER 2022-11-13 11:20 | Outpatient (AMB) | payer BC, MEDICARE, SELFPAY ==
--- NOTE | 2022-11-13 11:19 | MHC.OFFVIS ---
Intake Vital Signs 11/13/22 11:24 Height 5 ft 4 in Weight 140 lb BMI 24.0 BP 100/56 L Blood Pressure Location Lt brachial Position Sitting Pulse 75 Pulse Source Pulse Oximeter Pulse Oximetry (%) 98 Intake Visit Reasons: follow 2 week toe Allergies ciprofloxacin [Cipro] Allergy (Intermediate, Verified 11/13/22 11:25) rash hydromorphone [Dilaudid] Adverse Reaction (Intermediate, Verified 11/13/22 11:25) hallucinations shellfish Allergy (Intermediate, Uncoded 10/27/22 11:02) rash Wellbutrin Allergy (Intermediate, Uncoded 10/27/22 11:02) rash Zyban Allergy (Intermediate, Uncoded 10/27/22 11:02) rash dairy Adverse Reaction (Intermediate, Uncoded 10/27/22 11:02) stomach upset gluten Adverse Reaction (Intermediate, Uncoded 10/27/22 11:02) GI intolerance HPI follow 2 week toe HPI Details She still has some redness she feels and swelling toe. Pain is less and she denies being on pain medication. [facility] Medical History Family history of early CAD Intermittent palpitations Osteoporosis Malaise and fatigue Surgical menopause BRCA2 gene mutation positive History of multinodular goiter Seborrheic dermatitis Fibromyalgia Celiac disease Depression with anxiety Lumbar spondylosis Lumbar degenerative disc disease Surgical History History of reconstruction of both breasts History of abdominoplasty H/O partial thyroidectomy Hx of bilateral mastectomy Status post total abdominal hysterectomy and bilateral salpingo-oophorectomy (EBONY-BSO) Family History Father Hypertension Mental health disorder Heart attack History of open heart surgery Mother Breast cancer Mental health disorder Social History Household Members: Spouse Household Members Other:: 3 Housing: House Patient Tobacco Use Status: Former Tobacco user Years Smoked: 5 yrs e-Cigarette/Vaping Use: Never Used Substance Use Type: Marijuana service: No Current occupational status: unemployed Cognitive needs: No Hearing needs: No Vision needs: No Physical Exam Vital Signs: Last Vital Signs Pulse 75 11/13/22 11:24 BP 100/56 L 11/13/22 11:24 Pulse Ox 98 11/13/22 11:24 BMI result Body Mass Index 24.0 Const Other: General: cooperative Orientation/consciousness: patient oriented x3 HEENT Head: Yes normal to inspection Mouth: Normal oral and palatal mucosa present Eyes General: appearance normal, both eyes and all related structures Pupils: Equal, round and reactive pupils present Resp Effort & Inspection: normal respiratory effort Cardio Rate: regular rate Rhythm: regular rhythm GI Palpation (GI): Soft to palpation and nontender General: Yes no CVA tenderness Back/Spine/Pelvis Back: no CVA tenderness Skin General skin exam: no rashes or lesions noted Neuro General: patient oriented x3 Cranial nerves: Yes CN's II-XII intact bilaterally and Yes Equal, round and reactive pupils present Extrem Other: foot stable,about same Psych Appearance: grossly normal Assessment & Plan Assessment & Plan (1) Toe osteomyelitis, left: Comment: She has OM foot No specific organism is present. Foot is stable and swelling may persist. Code(s): M86.9 - Osteomyelitis, unspecified Plan: Stop IV antibiotics. Switch to po Doxycycline for month or so. See as scheduled. Told patient can recur and amputation may sometimes be required,but hopefully suppress infection with medication. Orders: Orders IR cvc remove any age 0911/13/22 M86.179 - Other acute osteomyelitis, unspecified ankle and foot Medications: New doxycycline hyclate 100 mg PO BID 60 caps 0RF 30 days Coding Level of Care Code Est Pt Level 3 (47241) Diagnoses Toe osteomyelitis, left M86.9
[2022-11-13 11:24] VITALS: BP 100/56; PULSE 75; O2SAT 98; BMI 24.0
== END 2022-11-13 11:48 | disposition home or self-care (01) ==
LOC: HO.HID 11:20
PROVIDERS: PCP Internal Medicine; Visit Provider Internal Medicine
DX: M86.9 Osteomyelitis, unspecified (principal)
CPT/HCPCS: 99213

== ENCOUNTER → 2022-11-13 11:20 | Outpatient (BNVA) | payer BC, MEDICARE, SELFPAY | PROVIDERS: PCP Internal Medicine; Visit Provider Internal Medicine ==

== ENCOUNTER 2022-12-04 11:33 | Outpatient (AMB) | payer BC, MEDICARE, SELFPAY ==
[2022-12-04 11:40] VITALS: BP 96/62; PULSE 66; O2SAT 98; BMI 24.5
--- NOTE | 2022-12-04 11:40 | A.OFFVIS_ITS ---
Intake Vital Signs 3 12/04/22 11:40 Height 5 ft 4 in Weight 143 lb BMI 24.5 BP 96/62 Blood Pressure Location Lt brachial Position Sitting Pulse 66 Pulse Source Pulse Oximeter Pulse Oximetry (%) 98 Intake Visit Reasons: Ref.Cata Munoz.f/u/w.micro & pathology Allergies ciprofloxacin [Cipro] Allergy (Intermediate, Verified 11/13/22 11:25) rash hydromorphone [Dilaudid] Adverse Reaction (Intermediate, Verified 11/13/22 11:25) hallucinations shellfish Allergy (Intermediate, Uncoded 10/27/22 11:02) rash Wellbutrin Allergy (Intermediate, Uncoded 10/27/22 11:02) rash Zyban Allergy (Intermediate, Uncoded 10/27/22 11:02) rash dairy Adverse Reaction (Intermediate, Uncoded 10/27/22 11:02) stomach upset gluten Adverse Reaction (Intermediate, Uncoded 10/27/22 11:02) GI intolerance HPI Ref.Cata Munoz.f/u/w.micro & pathology 2 HPI0 Details She said foot area got worse and she had 11/[address] Darden to clean area. Culture shows Pseudomonas auruginosa. She started Levaquin 11/27 for 21 days and now area looks improved. [facility] Medical History Family history of early CAD Intermittent palpitations Osteoporosis Malaise and fatigue Surgical menopause BRCA2 gene mutation positive History of multinodular goiter Seborrheic dermatitis Fibromyalgia Celiac disease Depression with anxiety Lumbar spondylosis Lumbar degenerative disc disease Surgical History History of reconstruction of both breasts History of abdominoplasty H/O partial thyroidectomy Hx of bilateral mastectomy Status post total abdominal hysterectomy and bilateral salpingo-oophorectomy (EBONY-BSO) Family History Father Hypertension Mental health disorder Heart attack History of open heart surgery Mother Breast cancer Mental health disorder Social History Household Members: Spouse Household Members Other:: 3 Housing: House Patient Tobacco Use Status: Former Tobacco user Years Smoked: 5 yrs e-Cigarette/Vaping Use: Never Used Substance Use Type: Marijuana service: No Current occupational status: unemployed Cognitive needs: No Hearing needs: No Vision needs: No Review of Systems Const All systems reviewed & are unremarkable except as noted in HPI and below Physical Exam Vital Signs: Last Vital Signs Pulse 66 12/04/22 11:40 BP 96/62 12/04/22 11:40 Pulse Ox 98 12/04/22 11:40 BMI result Body Mass Index 24.5 Const Other: this is picture before surgery on 11/21,nodular area on right abscess drained Pseudomonas today area is wrapped. General: cooperative Orientation/consciousness: patient oriented x3 HEENT Head: Yes normal to inspection Mouth: Normal oral and palatal mucosa present Eyes General: appearance normal, both eyes and all related structures Pupils: Equal, round and reactive pupils present Resp Effort & Inspection: normal respiratory effort Cardio Rate: regular rate Rhythm: regular rhythm GI Palpation (GI): Soft to palpation and nontender General: Yes no CVA tenderness Back/Spine/Pelvis Back: no CVA tenderness Skin General skin exam: no rashes or lesions noted Neuro General: patient oriented x3 Cranial nerves: Yes CN's II-XII intact bilaterally and Yes Equal, round and reactive pupils present Extrem General: Yes normal to inspection Psych Appearance: grossly normal Assessment & Plan Assessment & Plan (1) Toe osteomyelitis, left: Comment: She has OM foot Pseudomonas appeared and now foot better after treatment. Code(s): M86.9 - Osteomyelitis, unspecified Plan: Finish Levaquin course. See again prn need. Coding Level of Care Code Est Pt Level 3 (21347) Diagnoses Toe osteomyelitis, left M86.9
== END 2022-12-04 13:23 | disposition home or self-care (01) ==
LOC: HO.HID 11:33
PROVIDERS: PCP Internal Medicine; Visit Provider Internal Medicine
DX: M86.9 Osteomyelitis, unspecified (principal)
CPT/HCPCS: 99213

== ENCOUNTER → 2022-12-04 11:33 | Outpatient (BNVA) | payer BC, MEDICARE, SELFPAY | PROVIDERS: PCP Internal Medicine; Visit Provider Internal Medicine ==

== ENCOUNTER 2023-01-25 12:38 | Outpatient (AMB) | payer BC, MEDICARE, SELFPAY ==
[2023-01-25 13:14] VITALS: BP 98/60; PULSE 79; O2SAT 95; BMI 23.6
--- NOTE | 2023-01-25 13:14 | A.OFFPC_ITS ---
Vital Signs 01/25/23 13:14 Height 5 ft 4 in Weight 137 lb 8 oz BMI 23.6 BP 98/60 Blood Pressure Location Rt brachial Position Sitting Pulse 79 Pulse Source Pulse Oximeter Pulse Oximetry (%) 95 Oxygen Delivery Method Room Air Intake Visit Reasons: Annual PE Intake Note: pt is here for her Annual PE pt would like her Flu vaccine Allergies ciprofloxacin [Cipro] Allergy (Intermediate, Verified 01/25/23 13:30) rash hydromorphone [Dilaudid] Adverse Reaction (Intermediate, Verified 01/25/23 13:30) hallucinations shellfish Allergy (Intermediate, Uncoded 01/25/23 13:30) rash Wellbutrin Allergy (Intermediate, Uncoded 01/25/23 13:30) rash Zyban Allergy (Intermediate, Uncoded 01/25/23 13:30) rash dairy Adverse Reaction (Intermediate, Uncoded 01/25/23 13:30) stomach upset gluten Adverse Reaction (Intermediate, Uncoded 01/25/23 13:30) GI intolerance Medication List - Last Reconciled 01/25/23 by Mary Tenorio MD acetaminophen (Tylenol Extra Strength) 1,000 mg (2 x 500 mg) PO QID PRN duloxetine 30 mg PO DAILY ibuprofen 400 mg PO Q6H PRN lorazepam 0.5 mg PO BID PRN [medical THC buccal] melatonin 5 mg PO DAILY zolpidem 5 mg PO BEDTIME PRN Tobacco use date assessed: 01/25/23 Dental Screening Dental Screen Date: 01/25/23 Did you have a dental visit in the last 12 months?: Yes Did you have a dental problem in the last 6 months where you did not have access to dental care?: No Was dental information given to patient?: Patient has dentist HPI Annual PE HPI Details 52-year-old lady history of post BRCA 2 gene mutation underwent prophylactic bilateral mastectomy and total abdominal hysterectomy with bilateral salpingo-oophorectomy in 2010, has fibromyalgia, celiac disease, depression with anxiety, sees her Psychiatrist and therapist regularly; osteoporosis, and history of osteomyelitis of foot, currently followed by Dr. Darden, here today for her physical exam. Still sees Dr. Daniels who does her regular pelvic exam. She also had a bone density scan last done last year which showed presence of worsening osteoporosis in her lumbar spine, declined recommendation by her OB to start an infusion for treatment of osteoporosis. Up-to-date with her screening for colon cancer, had a Cologuard testing done in 2020 with negative findings. Would like to get colonoscopy screening by next year. Flu vaccine given today. To get her COVID vaccine booster [facility] Medical History Family history of early CAD Intermittent palpitations Osteoporosis Malaise and fatigue Surgical menopause BRCA2 gene mutation positive History of multinodular goiter Seborrheic dermatitis Fibromyalgia Celiac disease Depression with anxiety Lumbar spondylosis Lumbar degenerative disc disease Surgical History History of reconstruction of both breasts History of abdominoplasty H/O partial thyroidectomy Hx of bilateral mastectomy Status post total abdominal hysterectomy and bilateral salpingo-oophorectomy (EBONY-BSO) Family History Father Hypertension Mental health disorder Heart attack History of open heart surgery Mother Breast cancer Mental health disorder Social History Household Members: Spouse Household Members Other:: 3 Housing: House Patient Tobacco Use Status: Former Tobacco user Years Smoked: 5 yrs e-Cigarette/Vaping Use: Never Used Substance Use Type: Marijuana service: No Current occupational status: unemployed Cognitive needs: No Hearing needs: No Vision needs: No Female Reproductive History Menstrual Menopause type: surgical Questionnaire Thrive Questionnaire Date Thrive assessed: 10/08/22 KRYSTYNA-7 AMB Questionnaire KRYSTYNA-7 Date KRYSTYNA - 7 assessed: 05/27/22 Source: Developed by Drs. Sukhdeep Veronica, Maura Dodd, Carlos Alberto Castro and colleagues, with an educational liset from [employer]. Review of Systems Const Denies chills, Denies fatigue, Denies fever(s) and Denies weakness Eyes Denies change in vision ENT Denies dizziness Card Denies chest pain, Denies chest pain with activity, Denies rapid heart rate, Denies lightheadedness, Denies dyspnea and Denies orthopnea Resp Denies cough, Denies excessive phlegm production, Denies dyspnea and Denies wheezing GI Denies abdominal pain, Denies hematochezia, Denies change in bowel habits, Denies change in stool character, Denies heartburn, Denies nausea and Denies vomiting Reports no additional complaints Musc Denies numbness and Denies tingling Skin/Breast Denies breast pain, Denies breast mass and Denies rash Neuro Denies dizziness, Denies numbness, Denies tingling and Denies weakness Psych Reports as per HPI Endo Denies fatigue Mio/Lymph Reports no additional complaints Aller/Immun Denies wheezing Physical exam (Primary Care) Vital Signs: Last Vital Signs Pulse 79 01/25/23 13:14 BP 98/60 01/25/23 13:14 Pulse Ox 95 01/25/23 13:14 Oxygen Delivery Method Room Air 01/25/23 13:14 BMI result Body Mass Index 23.6 Tobacco/Smoking Status: Tobacco use Status Tobacco use date assessed 01/25/23 01/25/23 13:21 Patient Tobacco Use Status Former Tobacco user 01/25/23 13:15 e-Cigarette/Vaping Use Never Used 01/25/23 13:15 Thrive Assessment: Date of Thrive Assessment Date Thrive assessed 10/08/22 01/25/23 13:15 Const Other: Alert oriented x3, ambulatory but walking more on her left heel, avoiding pressure on left great toe Orientation/consciousness: patient oriented x3 HENNH Head: Yes normocephalic Mouth: Normal oral and palatal mucosa present and moist mucous membranes Neck Neck: Yes full ROM, Yes no lymphadenopathy and Yes supple Resp Auscultation: clear to auscultation bilaterally Cardio Other: S1-S2 present regular rate and rhythm Skin Other: Dry erythematous skin surrounding left big toe, with granulation tissue noted on nail bed left big toe, no active drainage Neuro General: patient oriented x3, gait normal, tone normal, moves all extremities, Normal light touch and pain sensation, no focal motor deficits and CN's II-XI intact bilaterally Extrem Other: Mild swelling noted left big toe, nontender to palpation, not warm to touch, no active drainage coming from nail bed Psych Appearance: grossly normal and well kempt Mental Status: mental status grossly normal Speech and movement: Normal speech and movement present Affect: normal affect Attitude: cooperative Thought process: Normal thought process present Office Procedures Flu Questionnaire Does the patient have a severe egg allergy?: No Does the patient have severe life threatening allergies?: No Does the patient have a fever or illness today?: No Has the patient ever had Guillain-Y[place]o Syndrome?: No Has the patient ever had any past reaction to a flu shot?: No Immunizations flu vacc [id number] 6mos up(PF) 60 mcg(15 mcgx4)/0.5 mL IM syringe Performing Provider: Mary Tenorio MD Performing Location: [facility] Administered by: Miriam Kaur CMA on 01/25/23 13:31 Dose Route Admin Location Dispensed Lot Number Expiration Date NDC Poker Manager 0.5 mL IM Right Deltoid 0.5 mL [id number] 09/05/23 46229-259-86 Pain Doctor VIS Given Date VIS Provided VIS Publication Date 01/25/23 Single Vaccine 20 Eligibility Eligibility Date Funding Source Not VFC Eligible 01/25/23 Private Assessment and Plan Assessment & Plan (1) Annual visit for general adult medical examination with abnormal findings: Code(s): Z00.01 - Encounter for general adult medical examination with abnormal findings Plan: Will check appropriate labs. Recommended dental visit every 6 months and regular [facility] exams, [facility] Take adequate calcium in diet and vitamin-D 3 at 2000 IU per cap once a day, in addition to weight-bearing exercises to help maintain good muscle tone and weight control. Instructed to do self-breast exam, and continue to get yearly mammogram, ordered by her grill cook, Dr. Daniels . Colon cancer screening up-to-date, had negative Cologuard testing in 2020. Flu shot given today, and recommended to get COVID booster (2) Depression with anxiety: Comment: seeseverion Bah in [place], continued on Cymbalta p.r.n. lorazepam and medical marijuana Code(s): F41.8 - Other specified anxiety disorders (3) Fibromyalgia: Code(s): M79.7 - Fibromyalgia Plan: Takes acetaminophen as needed (4) Osteoporosis: Code(s): M81.0 - Age-related osteoporosis without current pathological fracture Plan: Last bone density scan done 2021 showed osteoporosis in lumbar spine 2.5% decrea se from previous testing. (5) Acute osteomyelitis of toe: Code(s): M86.179 - Other acute osteomyelitis, unspecified ankle and foot Plan: Status post Levaquin for 4 weeks, followed by Podiatry (6) Surgical menopause: Comment: advised to continue with vitamin-D supplements and dietary calcium intake as well as regular weight-bearing exercise Code(s): E89.40 - Asymptomatic postprocedural ovarian failure (7) Celiac disease: Code(s): K90.0 - Celiac disease (8) Lumbar degenerative disc disease: Code(s): M51.36 - Other intervertebral disc degeneration, lumbar region Plan: Takes Tylenol as needed and medical marijuana Orders: Orders Lipid Panel 01/25/23 E89.40 - Asymptomatic postprocedural ovarian failure, F41.8 - Other specified anxiety disorders, K90.0 - Celiac disease, M51.36 - Other intervertebral disc degeneration, lumbar region, M79.7 - Fibromyalgia, M81.0 - Age-related osteoporosis without current pathological fracture, M86.179 - Other acute osteomyelitis, unspecified ankle and foot, Z00.01 - Encounter for general adult medical examination with abnormal findings Glucose Fasting 01/25/23 E89.40 - Asymptomatic postprocedural ovarian failure, F41.8 - Other specified anxiety disorders, K90.0 - Celiac disease, M51.36 - Other intervertebral disc degeneration, lumbar region, M79.7 - Fibromyalgia, M81.0 - Age-related osteoporosis without current pathological fracture, M86.179 - Other acute osteomyelitis, unspecified ankle and foot, Z00.01 - Encounter for general adult medical examination with abnormal findings Aspartate Amino Transferase 01/25/23 E89.40 - Asymptomatic postprocedural ovarian failure, F41.8 - Other specified anxiety disorders, K90.0 - Celiac d isease, M51.36 - Other intervertebral disc degeneration, lumbar region, M79.7 - Fibromyalgia, M81.0 - Age-related osteoporosis without current pathological fracture, M86.179 - Other acute osteomyelitis, unspecified ankle and foot, Z00.01 - Encounter for general adult medical examination with abnormal findings Vitamin D 25-OH Total 01/25/23 E89.40 - Asymptomatic postprocedural ovarian failure, F41.8 - Other specified anxiety disorders, K90.0 - Celiac disease, M51.36 - Other intervertebral disc degeneration, lumbar region, M79.7 - Fibromyalgia, M81.0 - Age-related osteoporosis without current pathological fracture, M86.179 - Other acute osteomyelitis, unspecified ankle and foot, Z00.01 - Encounter for general adult medical examination with abnormal findings Influenza [id number] Immunization 01/25/23 Z23 - Encounter for immunization Alanine Aminotransferase 01/25/23 E89.40 - Asymptomatic postprocedural ovarian failure, F41.8 - Other specified anxiety disorders, K90.0 - Celiac disease, M51.36 - Other intervertebral disc degeneration, lumbar region, M79.7 - Fibromyalgia, M81.0 - Age-related osteoporosis without current pathological fracture, M86.179 - Other acute osteomyelitis, unspecified ankle and foot, Z00.01 - Encounter for general adult medical examination with abnormal findings Coding Level of Care Code Est Pt Prev Care 40-64y(88631) Diagnoses Annual visit for general adult medical examination with abnormal findings Z00.01 Depression with anxiety F41.8 Fibromyalgia M79.7 Osteoporosis M81.0 Acute osteomyelitis of toe M86.179 Surgical menopause E89.40 Celiac disease K90.0 Lumbar degenerative disc disease M51.36
== END 2023-01-25 13:59 | disposition home or self-care (01) ==
PROVIDERS: Visit Provider Internal Medicine
DX: Z23 Encounter for immunization (principal)
CPT/HCPCS: 90471; 90686; 99396

== ENCOUNTER 2023-02-04 06:01 | Outpatient (REF) | payer BC, MEDICARE, SELFPAY ==
[2023-02-04 12:40] LABS: Alanine Aminotransferase 15 U/L (0-31); Aspartate Amino Transferase 18 U/L (5-31); Cholesterol 218 mg/dL (<200); Glucose Fasting 94 mg/dL (60-99); HDL Cholesterol 68 mg/dL (>40); LDL Cholesterol Calculated 136 mg/dL (<100); Triglycerides 73 mg/dL (<150)
[2023-02-04 12:44] LABS: Vitamin D 25-OH Total 66.1 ng/mL (>30)
== END 2023-02-04 06:02 | disposition home or self-care (01) ==
LOC: HO.HMGCLDS 06:01
PROVIDERS: PCP Internal Medicine; Visit Provider Internal Medicine
DX: Z00.01 Encounter for general adult medical examination with abnormal findings (principal); F41.8 Other specified anxiety disorders; M81.0 Age-related osteoporosis without current pathological fracture; E89.40 Asymptomatic postprocedural ovarian failure; K90.0 Celiac disease; M51.36 Other intervertebral disc degeneration, lumbar region; M79.7 Fibromyalgia
CPT/HCPCS: 36415; 80061; 82306; 82947; 84450; 84460

== ENCOUNTER 2023-03-16 16:31 | Outpatient (AMB) | payer BC, MEDICARE, SELFPAY ==
--- NOTE | 2023-03-16 16:27 | MHC.PC.OV ---
Intake Visit Reasons: I-phone , feeling forgetful, Intake Note: Pt has been feeling more forgetful Allergies bupropion [From Wellbutrin] Allergy (Intermediate, Verified 03/16/23 17:06) Rash ciprofloxacin [Cipro] Allergy (Intermediate, Verified 03/16/23 17:06) rash shellfish derived Allergy (Intermediate, Verified 03/16/23 17:06) Rash gluten Adverse Reaction (Intermediate, Verified 03/16/23 17:06) GI intolerance hydromorphone [Dilaudid] Adverse Reaction (Intermediate, Verified 03/16/23 17:06) hallucinations dairy Adverse Reaction (Intermediate, Uncoded 03/16/23 17:06) stomach upset Medication List - Last Reconciled 03/16/23 by Mary Tenorio MD acetaminophen (Tylenol Extra Strength) 1,000 mg (2 x 500 mg) PO QID PRN duloxetine 30 mg PO DAILY ibuprofen 400 mg PO Q6H PRN lorazepam 0.5 mg PO BID PRN [medical THC buccal] melatonin 5 mg PO DAILY zolpidem 5 mg PO BEDTIME PRN Tobacco use date assessed: 03/16/23 Dental Screening Dental Screen Date: 03/16/23 Did you have a dental visit in the last 12 months?: Yes Did you have a dental problem in the last 6 months where you did not have access to dental care?: No Was dental information given to patient?: Patient has dentist HPI feeling forgetful, HPI Details Tele health visit made with 52-year-old lady here today complaining of getting very forgetful these past few months.. Patient has been homebound for several months, as she was getting treatment for osteomyelitis of her left foot. She states that she has been very inactive, was unable to go and swim in the pool for her regular exercise all these time. She has now finished treatment, with good results and has been cleared by her ID and podiatry to resume her regular day-to-day activities. She has already had started swimming again this week at the [facility] for exercise and feels much better. [facility] Medical History Family history of early CAD Intermittent palpitations Osteoporosis Malaise and fatigue Surgical menopause BRCA2 gene mutation positive History of multinodular goiter Seborrheic dermatitis Fibromyalgia Celiac disease Depression with anxiety Lumbar spondylosis Lumbar degenerative disc disease Surgical History History of reconstruction of both breasts History of abdominoplasty H/O partial thyroidectomy Hx of bilateral mastectomy Status post total abdominal hysterectomy and bilateral salpingo-oophorectomy (EBONY-BSO) Family History Father Hypertension Mental health disorder Heart attack History of open heart surgery Mother Breast cancer Mental health disorder Social History Household Members: Spouse Household Members Other:: 3 Housing: House Patient Tobacco Use Status: Former Tobacco user Years Smoked: 5 yrs e-Cigarette/Vaping Use: Never Used Substance Use Type: Marijuana service: No Current occupational status: unemployed Cognitive needs: No Hearing needs: No Vision needs: No Questionnaire Thrive Questionnaire Date Thrive assessed: 10/08/22 KRYSTYNA-7 AMB Questionnaire KRYSTYNA-7 Date KRYSTYNA - 7 assessed: 05/27/22 Source: Developed by Drs. Sukhdeep Veronica, Maura Dodd, Carlos Alberto Castro and colleagues, with an educational liset from [email or web address]. Review of Systems Const All systems reviewed & are unremarkable except as noted in HPI and below Physical exam (Primary Care) Tobacco/Smoking Status: Tobacco use Status Tobacco use date assessed 03/16/23 03/16/23 16:31 Patient Tobacco Use Status Former Tobacco user 03/16/23 16:31 e-Cigarette/Vaping Use Never Used 03/16/23 16:31 Thrive Assessment: Date of Thrive Assessment Date Thrive assessed 10/08/22 03/16/23 16:31 Telehealth Telehealth Location of provider rendering services: practice address Location of patient: address on file Patient Identification confirmed using: Name, : Yes Telehealth method: video Patient verbally consented to treatment: Yes Patient verbally consented to billing insurance company: Yes Patient informed of any privacy concerns related to visit: Yes Minutes spent on Phone/Video with Pt.: 15 Assessment and Plan Assessment & Plan (1) Fibromyalgia: Code(s): M79.7 - Fibromyalgia Plan: Continue with regular exercise, swims at the [facility] at least 3 to 4 times a week (2) Forgetfulness: Code(s): R68.89 - Other general symptoms and signs Plan: Advised that this is most likely due to her being on prolonged inactivity for several months, mos likely will resolve now that she is back to her daily routine (3) Toe osteomyelitis, left: Comment: She has OM foot Pseudomonas appeared and now foot better after treatment. Code(s): M86.9 - Osteomyelitis, unspecified Plan: Resolved, completed treatment in cleared by ID and Podiatry to resume regular activity Coding Level of Care Code Tele Est Pt Level 3 (65554) Diagnoses Fibromyalgia M79.7 Forgetfulness R68.89 Toe osteomyelitis, left M86.9
== END 2023-03-16 17:04 | disposition home or self-care (01) ==
LOC: HO.HMGC 16:31
PROVIDERS: PCP Internal Medicine; Visit Provider Internal Medicine
DX: M79.7 Fibromyalgia (principal); R68.89 Other general symptoms and signs; M86.9 Osteomyelitis, unspecified
CPT/HCPCS: 99213

== ENCOUNTER → 2023-05-06 13:52 | Outpatient (REF) | payer BC, MEDICARE, SELFPAY ==
--- NOTE | 2023-05-06 13:56 | CA_ITS ---
Transthoracic Echocardiogram Patient (Last, First, Middle): Kayla Mercado M Gender: Female Date of : 1970 Age: 52 Procedure Date: 05/06/2023 Procedure Type: Transthoracic Echocardiogram Location: OP Height: 165.1 cm Weight: 63.5 kg BSA: 1.70 m2 Heart Rate: 66 bpm BP: 94 / 60 mmHg Parts Sales Counterperson: SB Referring MD: Parish Menendez MD Symptoms: R00.2 - Palpitations Study Quality: Technically Difficult due to breast implants ECG Rhythm: Sinus Conclusions: - The left ventricular systolic function is low normal. The visually estimated ejection fraction is between 50-55%. - No obvious valvular pathology seen on this study. Findings Left Ventricle Normal left ventricular cavity size. There is normal left ventricular wall thickness. The left ventricular systolic function is low normal. The visually estimated ejection fraction is between 50-55%. There is no evidence of regional wall motion abnormalities. Diastolic function is normal for age. Right Ventricle The right ventricle was not well visualized. Normal right ventricular cavity size. There is low normal right ventricular systolic function. Atria Both atria are normal in size. Aortic Valve The aortic valve was not well visualized. There is no aortic valve stenosis. There is no aortic valve regurgitation. Mitral Valve The mitral valve appears normal. There is trace mitral valve regurgitation. There is no mitral valve stenosis. Pulmonic Valve The pulmonic valve was not well visualized. Tricuspid Valve There is trace tricuspid valve regurgitation. There is no evidence of pulmonary hypertension. Great Vessels The aortic annulus and aortic arch are normal in size. Venous The inferior vena cava is normal in size and collapses greater than 50% with inspiration. Pericardium/Pleural There is no evidence of pericardial effusion. Prior Study Comparison No prior study available for comparison. Recommendations, Care & Conclusions No obvious valvular pathology seen on this study. Measurements 2D Linear Measurements IVSd: 0.67 0.6-0.9/0.6-1.0 cm LVIDd: 3.81 3.9-5.3/4.2-5.9 cm LVIDd Index: 2.24 2.4-3.2/2.2-3.1 cm/m2 LVIDs: 3.05 2.0-3.6 cm LVPWd: 0.79 0.7-1.1 cm LA Diam: 3.60 2.7-3.8/3.0-4.0 cm LAIDs Index: 2.12 1.5-2.3 cm/m2 LV Mass: 94.44 67-162/88-224 g LV Mass Index: 55.55 43-95/49-115 g/m2 LVOT Diam: 2.10 3.0+(-)1.3 cm 2D Systolic Function EF 4C: 64.50 >55% Mitral Valve MV Pk E: 0.72 MV PK A: 0.60 MV Decel Time: 186.00 E/A: 1.20 E'Medial: 9.68 E/E' Med: 7.40 PHT: 55.00 MVA PHT: 4.00 Decel [place]: 3.84 Aortic Valve AoV Pk Aaron: 1.06 AoV Pk Grad: 4.00 JAY: 2.76 LVOT LVOT Pk Aaron: 0.85 LVOT Mn Aaron: 0.58 LVOT VTI: 0.18 LVOT Pk Grad: 3.00 LVOT Mn Grad: 2.00 LVOT Diam: 2.10 LVOT Area: 3.46 Diastolic Function MV Pk E: 0.72 MV Pk A: 0.60 E/A: 1.20 E'Medial: 9.68 E/E' Med: 7.40 Right Ventricle TAPSE (mm): 6.00 TVS' Aaron: 9.46 Tricuspid Valve TR Pk Aaron: 2.09 TR Pk Grad: 17.00 RA Press: 3.00 RVSP: 20.00 Great Vessels Aorta Sinus of Valsalva: 3.10 2.0-3.5 cm Ao Arch: 2.80 Updated in Other Vendor System with Status of Final Parish Menendez MD electronically signed on 05/08/2023 7:36:17 AM with status of Final
== END ==
LOC: HO.CARD 13:52
PROVIDERS: PCP Internal Medicine; Visit Provider Internal Medicine
DX: R00.2 Palpitations (principal)
CPT/HCPCS: 93306

== ENCOUNTER → 2023-05-06 13:56 | Outpatient (BNV) | payer BC, MEDICARE, SELFPAY | PROVIDERS: PCP Internal Medicine; Visit Provider Internal Medicine | DX: R00.2 Palpitations (principal) | CPT/HCPCS: 93306 ==

== ENCOUNTER 2023-05-13 13:08 | Outpatient (AMB) | payer BC, MEDICARE, SELFPAY ==
[2023-05-13 13:52] VITALS: BP 110/68; PULSE 75; BMI 24.2
--- NOTE | 2023-05-13 13:52 | A.OFFVIS_ITS ---
Intake Vital Signs 05/13/23 13:52 Height 5 ft 4 in Weight 141 lb 1.533 oz BMI 24.2 BP 110/68 Blood Pressure Location Lt brachial Position Sitting Pulse 75 Pulse Source Monitor Intake Visit Reasons: follow up echo/ rediscuss calcium score testing Intake Note: follow up after ECHO Allergies bupropion [From Wellbutrin] Allergy (Intermediate, Verified 03/16/23 17:06) Rash ciprofloxacin [Cipro] Allergy (Intermediate, Verified 03/16/23 17:06) rash shellfish derived Allergy (Intermediate, Verified 03/16/23 17:06) Rash gluten Adverse Reaction (Intermediate, Verified 03/16/23 17:06) GI intolerance hydromorphone [Dilaudid] Adverse Reaction (Intermediate, Verified 03/16/23 17:06) hallucinations dairy Adverse Reaction (Intermediate, Uncoded 03/16/23 17:06) stomach upset HPI HPI Comments History of Present Illness Details 52-year-old female presents today for a follow-up. She had her echocardiogram and holter performed but is still unsure of about the calcium score. She reports she has been doing good. She denies chest pains, shortness of breath, dizziness, palpitations, or swelling. She reports she is very anxious. She bikes without difficulty. [facility] Medical History Family history of early CAD Intermittent palpitations Osteoporosis Malaise and fatigue Surgical menopause BRCA2 gene mutation positive History of multinodular goiter Seborrheic dermatitis Fibromyalgia Celiac disease Depression with anxiety Lumbar spondylosis Lumbar degenerative disc disease Surgical History History of reconstruction of both breasts History of abdominoplasty H/O partial thyroidectomy Hx of bilateral mastectomy Status post total abdominal hysterectomy and bilateral salpingo-oophorectomy (EBONY-BSO) Family History Father Hypertension Mental health disorder Heart attack History of open heart surgery Mother Breast cancer Mental health disorder Social History Household Members: Spouse Household Members Other:: 3 Housing: House Patient Tobacco Use Status: Former Tobacco user Years Smoked: 5 yrs e-Cigarette/Vaping Use: Never Used Substance Use Type: Marijuana service: No Current occupational status: unemployed Cognitive needs: No Hearing needs: No Vision needs: No Review of Systems Const Denies weakness ENT Denies dizziness Card Denies chest pain, Denies chest pain with activity, Denies syncope, Denies rapid heart rate, Denies pedal edema, Denies edema, Denies leg edema, Denies lightheadedness, Denies palpitations, Denies dyspnea, Denies dyspnea on exertion and Denies orthopnea Resp Denies cough, Denies dyspnea and Denies dyspnea on exertion GI Denies hematochezia and Denies change in stool character Musc Denies abnormal gait, Denies muscle cramps, Denies muscle weakness, Denies numbness, Denies radiating pain into limb and Denies tingling Neuro Denies abnormal gait, Denies dizziness, Denies syncope, Denies numbness, Denies tingling and Denies weakness Endo Denies palpitations Physical Exam Vital Signs: Last Vital Signs Pulse 75 05/13/23 13:52 BP 110/68 05/13/23 13:52 BMI result Body Mass Index 24.2 Const General: healthy appearing and no acute distress Orientation/consciousness: patient oriented x3 HEENT Head: Yes normal to inspection Eyes General: appearance normal, both eyes and all related structures Neck Neck: Yes normal visual inspection Chest Chest palpation & inspection: normal inspection of the chest Resp Effort & Inspection: normal respiratory effort Auscultation: clear to auscultation bilaterally Cardio Jugular venous distension: no JVD Palpation: normal PMI Rate: regular rate Rhythm: regular rhythm Heart sounds: S1 normal heart sound present, S2 normal heart sound present, no click, no gallops, no murmurs and no rubs GI Inspection: Yes normal to inspection Palpation (GI): Soft to palpation Skin General skin exam: no rashes or lesions noted Neuro General: patient oriented x3 Extrem General: Yes normal to inspection Psych Appearance: grossly normal Office Procedures EKG Details: EKG today. Normal Sinus Rhythm. Biatrial Enlargement. Rate 75 bpm. QRS 88ms. QTc 406ms. [id number], Complete Results Reviewed Results Reviewed: Echocardiogram Conclusions: - The left ventricular systolic function is low normal. The visually estimated ejection fraction is between 50-55%. - No obvious valvular pathology seen on this study. Holter: * Total monitoring time about 7 days. * Underlying rhythm is sinus. Average ventricular rate 75/Min. Range 47 to 158/Min. About 10% the time, rate > 100/Min. * Rare PACs and PVCs with minimal burden. * No significant pauses or AV blocks. * Patient diary reports symptoms including 'blurp', 'flutter', 'bubble in chest', 'left chest heart' at different times. Correlate with sinus rhythm and sinus tachycardia. Assessment & Plan Assessment & Plan (1) Heart palpitations: Code(s): R00.2 - Palpitations (2) Family history of early CAD: Comment: father had OR at age 54 y/o Code(s): Z82.49 - Family history of ischemic heart disease and other diseases of the circulatory system Plan She denies palpitations at this time. Holter showed rare PVCs or PACs. Symptoms correlated with sinus tachycardia and sinus rhythm. EKG today shows sinus rhythm. States biatrial enlargement. Echocardiogram shows normal atriums. She is going to think about the CTA and let us know. She is adjusting her diet to a more Mediterrabean diet. Coding Level of Care Code Est Pt Level 3 (46218) Diagnoses Heart palpitations R00.2 Family history of early CAD Z82.49 CPT Codes EKG - CPT: 45552-[id number], Complete ([id number])
== END 2023-05-13 14:50 | disposition home or self-care (01) ==
PROVIDERS: PCP Internal Medicine; Visit Provider Nurse Practitioner
DX: R00.2 Palpitations (principal); Z82.49 Family history of ischemic heart disease and other diseases of the circulatory system
CPT/HCPCS: 93010; 99213

== ENCOUNTER → 2023-05-13 13:08 | Outpatient (BNVA) | payer BC, MEDICARE, SELFPAY | PROVIDERS: PCP Internal Medicine; Visit Provider Nurse Practitioner | DX: R00.2 Palpitations (principal); Z82.49 Family history of ischemic heart disease and other diseases of the circulatory system | CPT/HCPCS: 93005 ==

== ENCOUNTER 2023-06-29 10:00 | Outpatient (AMB) | payer BC, MEDICARE, SELFPAY ==
[2023-06-29 10:03] VITALS: BP 120/80; PULSE 61; TEMP 36.4; O2SAT 97; BMI 24.2
--- NOTE | 2023-06-29 10:03 | AM.OFFWIN_ITS ---
Intake Vital Signs 06/29/23 10:03 Height 5 ft 4 in Weight 141 lb BMI 24.2 BP 120/80 Blood Pressure Location Lt brachial Position Sitting Pulse 61 Pulse Source Pulse Oximeter Temp 97.6 F Temp Source Temporal Artery Scan Pulse Oximetry (%) 97 Oxygen Delivery Method Room Air Intake Visit Reasons: EP sinus infection Intake Note: pt is here today for sinus infection started 3 weeks ago Patient Tobacco Use Status: Former Tobacco user Allergies bupropion [From Wellbutrin] Allergy (Intermediate, Verified 06/29/23 10:13) Rash ciprofloxacin [Cipro] Allergy (Intermediate, Verified 06/29/23 10:13) rash shellfish derived Allergy (Intermediate, Verified 06/29/23 10:13) Rash gluten Adverse Reaction (Intermediate, Verified 06/29/23 10:13) GI intolerance hydromorphone [Dilaudid] Adverse Reaction (Intermediate, Verified 06/29/23 10:13 ) hallucinations dairy Adverse Reaction (Intermediate, Uncoded 06/29/23 10:13) stomach upset Medication List - Last Reconciled 06/29/23 by SHAUN Quinonez acetaminophen (Tylenol Extra Strength) 1,000 mg (2 x 500 mg) PO QID PRN duloxetine 30 mg PO DAILY ibuprofen 400 mg PO Q6H PRN lorazepam 0.5 mg PO BID PRN [medical THC buccal] melatonin 5 mg PO DAILY zolpidem 5 mg PO BEDTIME PRN Do you need a note to return to daycare/school/sports/work: No HPI HPI Comments History of Present Illness Details Patient is a 52-year-old female in today for sick visit. Patient states that for the past 3 weeks she has developed symptoms of sinus pressure, sinus pain, headache, chest congestion. Patient denies fever, chest pain, shortness a breath, nausea, vomiting, diarrhea Patient has been expectorating green mucus for the past 5 days. [facility] Medical History Family history of early CAD Intermittent palpitations Osteoporosis Malaise and fatigue Surgical menopause BRCA2 gene mutation positive History of multinodular goiter Seborrheic dermatitis Fibromyalgia Celiac disease Depression with anxiety Lumbar spondylosis Lumbar degenerative disc disease Surgical History History of reconstruction of both breasts History of abdominoplasty H/O partial thyroidectomy Hx of bilateral mastectomy Status post total abdominal hysterectomy and bilateral salpingo-oophorectomy (EBONY-BSO) Family History Father Hypertension Mental health disorder Heart attack History of open heart surgery Mother Breast cancer Mental health disorder Social History Household Members: Spouse Household Members Other:: 3 Housing: House Patient Tobacco Use Status: Former Tobacco user Years Smoked: 5 yrs e-Cigarette/Vaping Use: Never Used Substance Use Type: Marijuana service: No Current occupational status: unemployed Cognitive needs: No Hearing needs: No Vision needs: No Review of Systems Const All systems reviewed & are unremarkable except as noted in HPI and below Physical Exam Vital Signs: Last Vital Signs Temp 97.6 F 06/29/23 10:03 Pulse 61 06/29/23 10:03 BP 120/80 06/29/23 10:03 Pulse Ox 97 06/29/23 10:03 Oxygen Delivery Method Room Air 06/29/23 10:03 BMI result Body Mass Index 24.2 Const Other: Appearance: Alert.? Oriented X3.? No acute distress.? Head: Normocephalic, atraumatic, Eyes: Pupils equal, round and reactive to light.? ENT: Pharynx normal.?+ sinus tenderness. Neck: Normal inspection.? Neck supple.? CVS: Normal heart rate and rhythm.? Pulses normal.? Respiratory: No respiratory distress.? Bilateral wheeze upper lobes. Neuro: Oriented X 3.? No motor deficit.? No sensory deficit. CN 2-12 intact Assessment & Plan Assessment & Plan (1) Sinusitis: Comment: Patient will be given azithromycin in the future to be taken as prescribed. Patient has been educated the side effects of these medications. Code(s): J32.9 - Chronic sinusitis, unspecified Qualifiers: Sinusitis location: unspecified location Chronicity: unspecified Qualified Code(s): J32.9 - Chronic sinusitis, unspecified Plan: Take your medications as prescribed. If you were prescribed antibiotics today, it is important that you take your medication to their entirety, do not skip any doses, do not finish them early. Follow-up with your primary care provider this week. Return to the emergency department with new or worsening symptoms. Such as fevers, chills, chest pain, shortness of breath, nausea, vomiting, dizziness, headache, vision changes, lethargy In case of emergency call 911 Plan Patient should follow-up with walk-in clinic if not better by next week. Medications: New albuterol sulfate 90 mcg/actuation 2 puffs inhalation Q6H PRN 6.7 grams 0RF shortness of breath or wheezing azithromycin For 250 mg dose pack: take 500 mg today (day 1), then 250 mg for 4 days (days 2-5) PO 6 tabs 0RF Coding Level of Care Code Est Pt Level 3 (36006) Diagnoses Sinusitis, unspecified chronicity, unspecified location J32.9 Sinusitis location: unspecified location Chronicity: unspecified Time Spent (min) 22
== END 2023-06-29 10:46 | disposition home or self-care (01) ==
PROVIDERS: PCP Internal Medicine; Visit Provider Nurse Practitioner Primary Care
DX: J32.9 Chronic sinusitis, unspecified (principal)
CPT/HCPCS: 99213

== ENCOUNTER 2023-11-23 12:54 | Outpatient (AMB) | payer BC, MEDICARE, SELFPAY ==
[2023-11-23 12:57] VITALS: BP 116/60; PULSE 62; BMI 24.0
--- NOTE | 2023-11-23 12:57 | MHC.OFFVIS ---
Vital Signs 11/23/23 12:57 Height 5 ft 4 in Weight 140 lb BMI 24.0 BP 116/60 Blood Pressure Location Lt brachial Position Sitting Pulse 62 Pulse Source Pulse Oximeter Intake Visit Reasons: 6m f/u Allergies bupropion [From Wellbutrin] Allergy (Intermediate, Verified 06/29/23 10:13) Rash ciprofloxacin [Cipro] Allergy (Intermediate, Verified 06/29/23 10:13) rash shellfish derived Allergy (Intermediate, Verified 06/29/23 10:13) Rash gluten Adverse Reaction (Intermediate, Verified 06/29/23 10:13) GI intolerance hydromorphone [Dilaudid] Adverse Reaction (Intermediate, Verified 06/29/23 10:13) hallucinations dairy Adverse Reaction (Intermediate, Uncoded 06/29/23 10:13) stomach upset HPI Comments Details: 53-year-old female presents today for a follow-up. She reports she has been doing good. She denies chest pains, shortness of breath, dizziness, palpitations, or swelling. She did have one episode of palpitations when she was ill with COVID in June. Otherwise, she does not notice them often. She reports she is very anxious. She bikes without difficulty. She is still very anxious regarding the calcium score. Denies any chest pains, shortness of breath, or orthopnea. [facility] Medical History Family history of early CAD Intermittent palpitations Osteoporosis Malaise and fatigue Surgical menopause BRCA2 gene mutation positive History of multinodular goiter Seborrheic dermatitis Fibromyalgia Celiac disease Depression with anxiety Lumbar spondylosis Lumbar degenerative disc disease Surgical History History of reconstruction of both breasts History of abdominoplasty H/O partial thyroidectomy Hx of bilateral mastectomy Status post total abdominal hysterectomy and bilateral salpingo-oophorectomy (EBONY-BSO) Family History Father Hypertension Mental health disorder Heart attack History of open heart surgery Mother Breast cancer Mental health disorder Social History Household Members: Spouse Household Members Other:: 3 Housing: House Patient Tobacco Use Status: Former Tobacco user Years Smoked: 5 yrs e-Cigarette/Vaping Use: Never Used Substance Use Type: Marijuana service: No Current occupational status: unemployed Cognitive needs: No Hearing needs: No Vision needs: No Review of Systems Const Denies weakness ENT Denies dizziness Card Denies chest pain, Denies chest pain with activity, Denies syncope, Denies rapid heart rate, Denies pedal edema, Denies edema, Denies leg edema, Denies lightheadedness, Denies palpitations, Denies dyspnea, Denies dyspnea on exertion and Denies orthopnea Resp Denies cough, Denies dyspnea and Denies dyspnea on exertion GI Denies hematochezia and Denies change in stool character Musc Denies abnormal gait, Denies muscle cramps, Denies muscle weakness, Denies numbness, Denies radiating pain into limb and Denies tingling Neuro Denies abnormal gait, Denies dizziness, Denies syncope, Denies numbness, Denies tingling and Denies weakness Endo Denies palpitations Physical Exam Vital Signs: Last Vital Signs Pulse 62 11/23/23 12:57 BP 116/60 11/23/23 12:57 BMI result Body Mass Index 24.0 Const General: healthy appearing and no acute distress Orientation/consciousness: patient oriented x3 HEENT Head: Yes normal to inspection Eyes General: appearance normal, both eyes and all related structures Neck Neck: Yes normal visual inspection Chest Chest palpation & inspection: normal inspection of the chest Resp Effort & Inspection: normal respiratory effort Auscultation: clear to auscultation bilaterally Cardio Jugular venous distension: no JVD Palpation: normal PMI Rate: regular rate Rhythm: regular rhythm Heart sounds: S1 normal heart sound present, S2 normal heart sound present, no click, no gallops, no murmurs and no rubs GI Inspection: Yes normal to inspection Palpation (GI): Soft to palpation Skin General skin exam: no rashes or lesions noted Neuro General: patient oriented x3 Extrem General: Yes normal to inspection Psych Appearance: grossly normal Assessment & Plan Assessment & Plan (1) Family history of early CAD: Comment: father had CA at age 54 y/o Code(s): Z82.49 - Family history of ischemic heart disease and other diseases of the circulatory system Category: Medical (2) Heart palpitations: Code(s): R00.2 - Palpitations Category: Medical Plan She denies palpitations at this time. Had an increase of palpitations during COVID in June but since improved. Holter in the past showed rare PVCs or PACs. Re-dicussed common trigger for palpitations. ED care for any sustained palpitations or if needed for symptoms. She is going to think about the coronary calcium score and let us know. Discussed risks and benefits. Reviewed the use of coronary calcium score. She had adjusted her diet to a more Mediterranean diet. Orders: Orders Lipid Panel 11/23/23 Z82.49 - Family history of ischemic heart disease and other diseases of the circulatory system Basic Metabolic Panel 11/23/23 Z82.49 - Family history of ischemic heart disease and other diseases of the circulatory system Coding Level of Care Code Est Pt Level 3 (69000) Diagnoses Family history of early CAD Z82.49 Heart palpitations R00.2
== END 2023-11-23 13:34 | disposition home or self-care (01) ==
PROVIDERS: PCP Internal Medicine; Visit Provider Nurse Practitioner
DX: Z82.49 Family history of ischemic heart disease and other diseases of the circulatory system (principal); R00.2 Palpitations
CPT/HCPCS: 99213

== ENCOUNTER → 2023-11-23 12:54 | Outpatient (BNVA) | payer BC, MEDICARE, SELFPAY | PROVIDERS: PCP Internal Medicine; Visit Provider Nurse Practitioner | DX: R00.2 Palpitations (principal); Z82.49 Family history of ischemic heart disease and other diseases of the circulatory system ==

== ENCOUNTER 2023-11-29 06:07 | Outpatient (REF) | payer BC, MEDICARE, SELFPAY ==
[2023-11-29 10:50] LABS: Anion Gap 10 (12-20); Blood Urea Nitrogen 16 mg/dL (9-16); Calcium 9.3 mg/dL (8.4-10.2); Carbon Dioxide 27 mmol/L (22-29); Chloride 108 mmol/L (96-108); Cholesterol 199 mg/dL (<200); Estimated Glomerular Filt Rate > 60; Glucose Random 98 mg/dL (60-115); HDL Cholesterol 80 mg/dL (>40); LDL Cholesterol Calculated 109 mg/dL (<100); Potassium 4.4 mmol/L (3.3-5.1); Sodium 141 mmol/L (135-145); Triglycerides 53 mg/dL (<150)
== END 2023-11-29 06:08 | disposition home or self-care (01) ==
LOC: HO.HMGCLDS 06:07
PROVIDERS: PCP Internal Medicine; Visit Provider Nurse Practitioner
DX: Z82.49 Family history of ischemic heart disease and other diseases of the circulatory system (principal)
CPT/HCPCS: 36415; 80048; 80061

== ENCOUNTER 2023-12-29 10:15 | Outpatient (REF) | payer BC, MEDICARE, SELFPAY ==
--- NOTE | ~2023-12-29 | MM_ITS ---
EXAMINATION: BONE DENSITOMETRY CLINICAL INDICATION: Postmenopausal. COMPARISON: Previous BD dated 12/12/2021 and baseline BD dated 12/10/2017. TECHNIQUE: Using a [employer] DXA System (software version: 13.1) manufactured by [employer], dual-energy x-ray absorptiometry was performed of the lumbar spine and left hip. The images are of good technical quality. Summary results are attached. FINDINGS: LEFT FEMUR, NECK: Current: BMD 0.880 g/cm2, Z-score -0.3, T-score -1.1, osteopenia. Prior: BMD 0.863 g/cm2. Baseline: BMD 0.880 g/cm2. LEFT FEMUR, TOTAL: Current: BMD 0.950 g/cm2, Z-score 0.1, T-score -0.5, normal, 1.8% decrease from previous, 6.3% decrease from baseline (<5% change is not significant). Prior: BMD 0.967 g/cm2. Baseline: BMD 1.014 g/cm2. AP SPINE L1-L4: Current: BMD 0.804 g/cm2, Z-score -2.6, T-score -3.1, osteoporosis, 2.7% decrease from previous, 9.8% decrease from baseline (<5% change is not significant). Prior: BMD 0.826 g/cm2. Baseline: BMD 0.891 g/cm2. IDENTIFIED RISK FACTORS: Early menopause, secondary osteoporosis, secondary osteoporosis (hyperthyroidism), height loss, osteoporosis, history of fracture (adult), hysterectomy, bilateral oophorectomy. HISTORY OF FRACTURE: Pelvis. MEDICATIONS: Calcium supplements or multivitamin, vitamin D. MM/XR DEXA axial skeleton IMPRESSION: 1. DIAGNOSIS: Severe osteoporosis based on the lowest T-score value of -3.1 in the lumbar spine and history of fracture applying World Health Organization criteria. 2. 10-YEAR FRACTURE RISK PREDICTION, FRAX: According to the guidelines, FRAX calculation should only be performed on patients in the osteopenia bone density category. Therefore, FRAX was not performed on this patient. 3. Treatment Recommendations: NOF guidelines recommend consideration for treatment in postmenopausal women and men age 50 and older presenting with the following: -A hip or vertebral (clinical or morphometric) fracture. -T-score less than or equal to -2.5 at the femoral neck or spine after appropriate evaluation to exclude secondary causes. -Low bone mass at the hip or spine and a 10-year fracture probability by FRAX of greater than or equal to 3% for hip fracture or greater than or equal to 20% for major osteoporotic fracture based on the [place] adapted WHO algorithm. 4. Other Recommendations: All treatment decisions require clinical judgment and consideration of individual patient factors, including patient preferences, comorbidities, previous drug use, risk factors not captured in the FRAX model (e.g. frailty, falls, vitamin D deficiency, increased bone turnover, interval significant decline in bone density) and possible under or overestimation of fracture risk by FRAX. Additional medical evaluation for secondary cause of low bone mineral density may be appropriate. FUTURE SCAN RECOMMENDATION: People with diagnosed cases of osteoporosis or at high risk for fracture should have regular bone mineral density tests. For patients eligible for Medicare, routine testing is allowed once every 2 years. The testing frequency can be increased to one year for patients who have rapidly progressing disease, those who are receiving or discontinuing medical therapy to restore bone mass, or have additional risk factors. Electronically signed by: Linsey Majano MD 12/30/2023 12:36 PM EDT
== END 2023-12-29 10:16 | disposition home or self-care (01) ==
LOC: HO.MAMMO 10:15
PROVIDERS: PCP Internal Medicine; Visit Provider Obstetrics & Gynecology
DX: M81.8 Other osteoporosis without current pathological fracture (principal); E89.40 Asymptomatic postprocedural ovarian failure; E05.90 Thyrotoxicosis, unspecified without thyrotoxic crisis or storm; Z90.710 Acquired absence of both cervix and uterus; Z90.722 Acquired absence of ovaries, bilateral; Z87.81 Personal history of (healed) traumatic fracture
CPT/HCPCS: 77080

== ENCOUNTER 2024-01-27 08:24 | Outpatient (AMB) | payer BC, MEDICARE, SELFPAY ==
--- NOTE | 2024-01-27 08:29 | MHC.PC.OV ---
Vital Signs 01/27/24 08:31 Height 5 ft 4 in Weight 146 lb BMI 25.1 BP 110/70 Blood Pressure Location Lt brachial Position Sitting Pulse 63 Pulse Source Pulse Oximeter Pulse Oximetry (%) 98 Oxygen Delivery Method Room Air Intake Visit Reasons: Annual PE - see comments Intake Note: Pt is here today for her PE: Last mammogram 11/21/21, cologuard 01/08/21 Allergies bupropion [From Wellbutrin] Allergy (Intermediate, Verified 01/27/24 08:43) Rash ciprofloxacin [Cipro] Allergy (Intermediate, Verified 01/27/24 08:43) rash shellfish derived Allergy (Intermediate, Verified 01/27/24 08:43) Rash gluten Adverse Reaction (Intermediate, Verified 01/27/24 08:43) GI intolerance hydromorphone [Dilaudid] Adverse Reaction (Intermediate, Verified 01/27/24 08:43) hallucinations dairy Adverse Reaction (Intermediate, Uncoded 01/27/24 08:43) stomach upset Medication List - Last Reconciled 01/27/24 by Mary Tenorio MD acetaminophen (Tylenol Extra Strength) 1,000 mg (2 x 500 mg) PO QID PRN albuterol sulfate 90 mcg/actuation 2 puffs inhalation Q6H PRN duloxetine 30 mg PO DAILY ibuprofen 400 mg PO Q6H PRN lorazepam 0.5 mg PO BID PRN [medical THC buccal] zolpidem 5 mg PO BEDTIME PRN Tobacco use date assessed: 01/27/24 Dental Screening Dental Screen Date: 01/27/24 Did you have a dental visit in the last 12 months?: Yes Did you have a dental problem in the last 6 months where you did not have access to dental care?: No Was dental information given to patient?: Patient has dentist HPI Annual PE - see comments HPI Details The patient is a 53-year-old female presenting today for her physical exam. She has been diagnosed with osteoporosis by her OBGYN, a condition diagnosed since age 37 post-hysterectomy. The osteoporosis is severe, with noted low bone mineral density, particularly in the lumbar spine. The patient experiences back pain affecting daily activities and has declined medication such as Fosamax due to potential side effects. She has attempted calcium supplementation but was advised against it due to cardiovascular concerns. She practices weight-bearing exercises when possible despite pain limitations. She has a history of breast cancer, which contraindicates hormone replacement therapy for her menopausal symptoms, specifically hot flashes which occur sporadically. The patient ceased menstruation at age 37 following the surgical intervention. The patient was diagnosed with IBS in the past after a colonoscopy which did not reveal particular sensitivity findings but reported symptoms consistent with IBS, including chronic constipation and bloating. Lactose intolerance and potential gluten sensitivity are reported, and the patient avoids dairy and gluten due to gastrointestinal discomfort. This visit also focuses on the management of anxiety and depression, for which the patient takes duloxetine and lorazepam as needed, and is followed by Psychiatry.. Sleep disturbances are noted, relating to insomnia associated with anxiety, for which zolpidem is prescribed on an as-needed basis. - Undergoes bone density scans every two years, last done this year which showed presence of osteoporosis, declines treatment. - Regular mammograms done at [facility] - Utilizes a dental cleaning service every six months - Received an influenza vaccine; recommended tetanus booster received. - Up to date with COVID vaccinations. - Cologuard test performed in 2020, with a full colonoscopy recommended for comprehensive evaluation in 2023. [facility] Medical History (Updated 01/28/24 @ 17:59 by Mary Tenorio MD) Toe osteomyelitis, left Constipation Chronic heartburn Family history of early CAD Intermittent palpitations Osteoporosis Malaise and fatigue Surgical menopause BRCA2 gene mutation positive History of multinodular goiter Seborrheic dermatitis Fibromyalgia Celiac disease Depression with anxiety Lumbar spondylosis Lumbar degenerative disc disease Surgical History History of reconstruction of both breasts History of abdominoplasty H/O partial thyroidectomy Hx of bilateral mastectomy Status post total abdominal hysterectomy and bilateral salpingo-oophorectomy (EBONY-BSO) Family History Father Hypertension Mental health disorder Heart attack History of open heart surgery Mother Breast cancer Mental health disorder Social History Household Members: Spouse Household Members Other:: 3 Housing: House Patient Tobacco Use Status: Former Tobacco user Years Smoked: 5 yrs e-Cigarette/Vaping Use: Never Used Substance Use Type: Marijuana service: No Current occupational status: unemployed Cognitive needs: No Hearing needs: No Vision needs: Yes Questionnaire PHQ-9 Over the last 2 weeks, how often have you been bothered by any of the following problems? 1. Little interest or pleasure in doing things: several days 2. Feeling down, depressed, or hopeless: several days 3. Trouble falling or staying asleep, or sleeping too much: nearly every day 4. Feeling tired or having little energy: more than half the days 5. Poor appetite or overeating: several days 6. Feeling bad about yourself - or that you are a failure or have let yourself or your family down: several days 7. Trouble concentrating on things, such as reading the newspaper or watching television: several days 8. Moving or speaking so slowly that other people could have noticed. Or the opposite - being so fidgety or restless that you have been moving around a lot more than usual: not at all 9. Thoughts that you would be better off or of hurting yourself in some way: not at all Total score: 10 Depression Screening Interpretation: Positive (sees psychiatrist) Depression Screening Follow-up: Existing condition, In treatment and Community Mental Health Worker F/U Depression Screening Done: Yes Source: Developed by Drs. Sukhdeep Veronica, Maura Dodd, Carlos Alberto Castro and colleagues, with an educational liset from [employer]. Thrive Questionnaire Date Thrive assessed: 01/27/24 I am a: Patient What is your living situation today?: I have a steady place to live Within the past 12 months, did the food you bought not last and you didn't have the money to get more?: Never true Within the past 12 months, did you worry whether your food would run out before you got money to buy more?: Never true Do you have trouble paying for medicines?: No Do you have trouble getting transportation to medical appointments?: No Do you have trouble paying your heating and electricity bill?: No Do you have trouble taking care of your child, family member or friend?: No Do you have trouble with day-to-day activities such as bathing, preparing meals, shopping, managing finances, etc.?: No Are you currently unemployed and looking for a job?: No Are you interested in more education?: No Please select the resources that you would like help with: None Currently or been in a relationship where the following occur: No concerns reported THRIVE Score: 0 AUDIT C Alcohol Use Questionnaire (AUDIT-C) 1. How often do you have a drink containing alcohol?: Never Total Score: 0 KRYSTYNA-7 AMB Questionnaire KRYSTYNA-7 Date KRYSTYNA - 7 assessed: 01/27/24 Feeling nervous, anxious, or on edge: 3 = Nearly every day Not being able to stop or control worryin = Nearly every day Worrying too much about different things: 3 = Nearly every day Trouble relaxin = Nearly every day Being so restless that it is hard to sit still: 0 = Not at all Becoming easily annoyed or irritable: 1 = Several days Feeling afraid as if something awful might happen: 1 = Several days Total KRYSTYNA-7 score (0-4 normal; 5-9 mild; 10-14 moderate; 15-21 severe): 14 Source: Developed by Drs. Sukhdeep Veronica, Maura Dodd, Carlos Alberto Castro and colleagues, with an educational liset from [employer]. KRYSTYNA-7 Assessment Billing KRYSTYNA-7 Assessment Tool: KRYSTYNA-7 Assessment 92985 (followed by therpaist and psychiatrist) Review of Systems Const Denies weakness Eyes Reports no additional complaints ENT Denies dizziness Card Denies chest pain, Denies chest pain with activity, Denies syncope, Denies rapid heart rate, Denies pedal edema, Denies edema, Denies leg edema, Denies lightheadedness, Denies palpitations, Denies dyspnea, Denies dyspnea on exertion and Denies orthopnea Resp Denies cough, Denies dyspnea and Denies dyspnea on exertion GI Denies hematochezia and Denies change in stool character Reports no additional complaints Musc Denies abnormal gait, Denies muscle cramps, Denies muscle weakness, Denies numbness, Denies radiating pain into limb and Denies tingling Neuro Denies abnormal gait, Denies dizziness, Denies syncope, Denies numbness, Denies tingling and Denies weakness Psych Reports as per HPI Endo Denies palpitations Mio/Lymph Reports no additional complaints Aller/Immun Reports no additional complaints Physical exam (Primary Care) Vital Signs: Last Vital Signs Pulse 63 01/27/24 08:31 BP 110/70 01/27/24 08:31 Pulse Ox 98 01/27/24 08:31 Oxygen Delivery Method Room Air 01/27/24 08:31 BMI result Body Mass Index 25.1 Tobacco/Smoking Status: Tobacco use Status Tobacco use date assessed 01/27/24 01/27/24 08:37 Patient Tobacco Use Status Former Tobacco user 01/27/24 08:30 e-Cigarette/Vaping Use Never Used 01/27/24 08:30 PHQ-9: PHQ-9 Score PHQ-9: Total score 10 01/27/24 23:59 Depression Screening Interpretation: Positive (sees psychiatrist) Depression Screening Follow-up: Existing condition, In treatment and Community Mental Health Worker F/U Thrive Assessment: Date of Thrive Assessment Date Thrive assessed 01/27/24 01/27/24 08:37 Currently or been in a relationship where the following occur: No concerns reported Const Other: Alert oriented x3, ambulatory but walking more on her left heel, avoiding pressure on left great toe Orientation/consciousness: patient oriented x3 HENMT Head: Yes normocephalic Mouth: Normal oral and palatal mucosa present and moist mucous membranes Eyes General: appearance normal, both eyes and all related structures Neck Neck: Yes full ROM, Yes no lymphadenopathy and Yes supple Chest Other: Positive Breast implants Resp Auscultation: clear to auscultation bilaterally Cardio Other: S1-S2 present regular rate and rhythm GI Palpation (GI): Soft to palpation, nontender, no guarding and no masses Auscultation: normal bowel sounds General: Yes no CVA tenderness Back/Spine/Pelvis Back: no CVA tenderness and No back tenderness Skin General skin exam: no rashes or lesions noted Neuro General: patient oriented x3, gait normal, tone normal, moves all extremities, Normal light touch and pain sensation, no focal motor deficits and CN's II-XI intact bilaterally Extrem General: Yes normal to inspection, Yes full ROM, Yes no joint enlargement, Yes no clubbing, cyanosis or edema and Yes normal gait Psych Appearance: grossly normal and well kempt Mental Status: mental status grossly normal Speech and movement: Normal speech and movement present Affect: normal affect Attitude: cooperative Thought process: Normal thought process present Results Reviewed Results Reviewed: Labs: - Cholesterol panel: LDL reduced by 20 points, HDL remains good above 50. - Electrolytes and kidney functions within normal limits. Tests and Diagnostics: - Recent bone density scan shows severe osteoporosis at the lumbar spine; normal findings at the left femoral neck. - Mammogram normal; MRI of the breast pending due to high-risk categorization. Name: Kayla Mercado Age/Sex: 53/F : 1970 [id number] [id number] Attend Dr: Usha Oneal HELIUM ARC WELDER Re11/29/23 Status: DEP REF Location: [facility] Disch: SPEC : [id number] AMAYA: 11/29/23 STATUS: COMP REQ : [id number] RECD: 11/29/[address]: Usha Onael HELIUM AR[employer] WELDER COMP: 11/29/23 ENTERED: 11/29/[address]: Mary Tenorio MD ORDERED: BMP, Lipid Panel Test Result Flag Reference Sodium 141 135-145 mmol/L Potassium 4.4 3.3-5.1 mmol/L CL 108 96-108 mmol/L CO2 27 22-29 mmol/L Gap 10 L 12-20 BUN 16 9-16 mg/dL Creat 0.75 0.5-1.4 mg/dL EGFR > 60 NOTE: For -[place] individuals, multiply the result by 1.210. Chronic Kidney Disease: Estimated GFR < 60 mL/min/1.73m2 Severe Kidney Disease: Estimated GFR < 15 mL/min/1.73m2 Glucose, Random 98 60-115 mg/dL CA 9.3 8.4-10.2 mg/dL Triglyceride 53 <150 mg/dL Desirable Triglyceride: less than 150 mg/dL Borderline High Triglyceride 150-199 mg/dL High Triglyceride: 200-499 mg/dL Very High Triglyceride: greater than or equal to 5OO mg/dL Cholesterol 199 <200 mg/dL Desirable Cholesterol: less than 200 mg/dL Borderline High Cholesterol: 200-239 mg/dL High Cholesterol: greater than 239 mg/dL LDL Calculated 109 H <100 mg/dL Desirable LDL: less than 100 mg/dL Near Optimal/Above Optimal LDL: 110-129 mg/dL Borderline High LDL: 130-159 mg/dL High LDL: 160-189 mg/dL Very High LDL: greater than or equal to 190 mg/dL HDL 80 >40 mg/dL Desirable HDL: greater than 40 mg/dL Note: This HDL assay may give artificially low results in patients with liver disease. Coding Level of Care Code Est Pt Prev Care 40-64y(03617) Diagnoses Annual visit for general adult medical examination with abnormal findings Z00.01 Chronic heartburn R12 Constipation K59.00 Encounter for screening for malignant neoplasm of colon Z12.11 Other osteoporosis without current pathological fracture M81.8 Osteoporosis type: other Presence of current pathological fracture: without current pathological fracture Fibromyalgia M79.7 Celiac disease K90.0 Depression with anxiety F41.8 Lumbar degenerative disc disease M51.36 Additional Codes KRYSTYNA-7 Assessment Billing - KRYSTYNA-7 Assessment Tool: KRYSTYNA-7 Assessment 93613 ([id number]) Assessment & Plan Assessment & Plan (1) Annual visit for general adult medical examination with abnormal findings: Code(s): Z00.01 - Encounter for general adult medical examination with abnormal findings (2) Chronic heartburn: Code(s): R12 - Heartburn Category: Medical (3) Constipation: Code(s): K59.00 - Constipation, unspecified Category: Medical (4) Encounter for screening for malignant neoplasm of colon: Code(s): Z12.11 - Encounter for screening for malignant neoplasm of colon (5) Osteoporosis: Code(s): M81.0 - Age-related osteoporosis without current pathological fracture Category: Medical Qualifiers: Osteoporosis type: other Presence of current pathological fracture: without current pathological fracture Qualified Code(s): M81.8 - Other osteoporosis without current pathological fracture (6) Fibromyalgia: Code(s): M79.7 - Fibromyalgia Category: Medical (7) Celiac disease: Code(s): K90.0 - Celiac disease Category: Medical (8) Depression with anxiety: Comment: lucien Bah in [place], continued on Cymbalta p.r.n. lorazepam and medical marijuana Code(s): F41.8 - Other specified anxiety disorders Category: Medical (9) Lumbar degenerative disc disease: Code(s): M51.36 - Other intervertebral disc degeneration, lumbar region Category: Medical Plan - Osteoporosis: Continue with non-pharmacologic treatments like weight-bearing exercise and dietary modifications. Consider alternative therapies in the future. - Gastrointestinal: Referral to gastroenterology GI) for a comprehensive evaluation including potential colonoscopy. - Anxiety and Depression: Maintain on duloxetine; continue therapy with Rosa Giovanny. Discuss sleep aid alternatives during a psychiatry follow-up. - Menopause: Discuss non-hormonal treatment options during next visit, monitoring vasomotor symptoms. - Preventative Care: Reinforce the continuation of regular screenings and vaccination updates. Patient was informed and verbally consented to the use of an ambient scribe for clinic note documentation during this visit. Orders: Referrals Gastroenterology Referral K59.00 - Constipation, unspecified, R12 - Heartburn, Z12.11 - Encounter for screening for malignant neoplasm of colon Medications: New zolpidem 5 mg PO BEDTIME PRN 10 tabs 0RF insomnia
[2024-01-27 08:31] VITALS: BP 110/70; PULSE 63; O2SAT 98; BMI 25.1
== END 2024-01-27 09:19 | disposition home or self-care (01) ==
PROVIDERS: PCP Internal Medicine; Visit Provider Internal Medicine
DX: Z00.00 Encounter for general adult medical examination without abnormal findings (principal); R12 Heartburn; K59.00 Constipation, unspecified; Z12.11 Encounter for screening for malignant neoplasm of colon; M81.8 Other osteoporosis without current pathological fracture; M79.7 Fibromyalgia; K90.0 Celiac disease; F41.8 Other specified anxiety disorders; M51.369 Other intervertebral disc degeneration, lumbar region without mention of lumbar back pain or lower extremity pain

== ENCOUNTER → 2024-01-27 08:24 | Outpatient (BNVA) | payer BC, MEDICARE, SELFPAY | PROVIDERS: PCP Internal Medicine; Visit Provider Internal Medicine | DX: Z00.01 Encounter for general adult medical examination with abnormal findings (principal); R12 Heartburn; K59.00 Constipation, unspecified; M81.8 Other osteoporosis without current pathological fracture; M79.7 Fibromyalgia; K90.0 Celiac disease; F41.8 Other specified anxiety disorders; M51.369 Other intervertebral disc degeneration, lumbar region without mention of lumbar back pain or lower extremity pain | CPT/HCPCS: 96127 ==

== ENCOUNTER 2024-06-19 14:01 | Outpatient (AMB) | payer BC, MEDICARE, SELFPAY ==
[2024-06-19 14:29] VITALS: BP 112/62; PULSE 73; BMI 24.0
--- NOTE | 2024-06-19 14:29 | A.OFFVIS_ITS ---
Vital Signs 06/19/24 14:29 Height 5 ft 4 in Weight 140 lb BMI 24.0 BP 112/62 Blood Pressure Location Lt brachial Position Sitting Pulse 73 Pulse Source Monitor Intake Visit Reasons: 6 mth f/up Allergies bupropion [From Wellbutrin] Allergy (Intermediate, Verified 01/27/24 08:43) Rash ciprofloxacin [Cipro] Allergy (Intermediate, Verified 01/27/24 08:43) rash shellfish derived Allergy (Intermediate, Verified 01/27/24 08:43) Rash gluten Adverse Reaction (Intermediate, Verified 01/27/24 08:43) GI intolerance hydromorphone [Dilaudid] Adverse Reaction (Intermediate, Verified 01/27/24 08:43) hallucinations dairy Adverse Reaction (Intermediate, Uncoded 01/27/24 08:43) stomach upset Medication List - Last Reconciled 06/19/24 by Parish Menendez MD acetaminophen (Tylenol Extra Strength) 1,000 mg (2 x 500 mg) PO QID PRN albuterol sulfate 90 mcg/actuation 2 puffs inhalation Q6H PRN duloxetine 30 mg PO DAILY ibuprofen 400 mg PO Q6H PRN lorazepam 0.5 mg PO BID PRN [medical THC buccal] zolpidem 5 mg PO BEDTIME PRN HPI Comments Details: Kayla returns for follow-up. In the past, she was seen regarding palpitations. She had reported sensations of 'blurp' or so in her left chest periodically. She still feels the same symptoms periodically. Very erratic and can happen any time. These are short bursts just lasting for sec or so. Nothing prolonged. She also gets nonexertional chest pains that last for a couple of sec at a time. That does not sound cardiac in nature. There is a history of mastectomy and breast reconstruction and hence that could be some scar tissue causing sharp pains. Patient is concerned about her heart mainly because of her father's history of various heart issues. Overall, mainly intermittent brief palpitations and sharp nonexertional chest pains. Exercise The patient engages in regular walking with the aim of daily activity and participates in water aerobics three times a week, indicating a moderate exercise regimen. [facility] Medical History (Updated 06/19/24 @ 16:08 by Parish Menendez MD) Intermittent palpitations Toe osteomyelitis, left Constipation Chronic heartburn Family history of early CAD Osteoporosis Malaise and fatigue Surgical menopause BRCA2 gene mutation positive History of multinodular goiter Seborrheic dermatitis Fibromyalgia Celiac disease Depression with anxiety Lumbar spondylosis Lumbar degenerative disc disease Surgical History History of reconstruction of both breasts History of abdominoplasty H/O partial thyroidectomy Hx of bilateral mastectomy Status post total abdominal hysterectomy and bilateral salpingo-oophorectomy (EBONY-BSO) Family History Father Hypertension Mental health disorder Heart attack History of open heart surgery Mother Breast cancer Mental health disorder Social History Household Members: Spouse Household Members Other:: 3 Housing: House Patient Tobacco Use Status: Former Tobacco user Years Smoked: 5 yrs e-Cigarette/Vaping Use: Never Used Substance Use Type: Marijuana service: No Current occupational status: unemployed Cognitive needs: No Hearing needs: No Vision needs: Yes Review of Systems Const Denies weakness ENT Denies dizziness Card Denies chest pain, Denies chest pain with activity, Denies syncope, Denies rapid heart rate, Denies pedal edema, Denies edema, Denies leg edema, Denies lightheadedness, Reports palpitations, Denies dyspnea, Denies dyspnea on exertion and Denies orthopnea Resp Denies cough, Denies dyspnea and Denies dyspnea on exertion GI Denies hematochezia and Denies change in stool character Musc Denies abnormal gait, Denies muscle cramps, Denies muscle weakness, Denies numbness, Denies radiating pain into limb and Denies tingling Neuro Denies abnormal gait, Denies dizziness, Denies syncope, Denies numbness, Denies tingling and Denies weakness Endo Reports palpitations Physical Exam Vital Signs: Last Vital Signs Pulse 73 06/19/24 14:29 BP 112/62 06/19/24 14:29 BMI result Body Mass Index 24.0 Const General: comfortable and no acute distress Orientation/consciousness: patient oriented x3 HEENT Other: Unremarkable Head: Yes normal to inspection Neck Neck: Yes normal visual inspection Chest Chest palpation & inspection: normal inspection of the chest Resp Auscultation: clear to auscultation bilaterally Cardio Palpation: normal PMI Heart sounds: S1 normal heart sound present, S2 normal heart sound present, no gallops, no murmurs and no rubs GI Palpation (GI): Soft to palpation Back/Spine/Pelvis Other: unremarkable Skin General skin exam: no rashes or lesions noted Neuro General: patient oriented x3 Extrem General: Yes normal to inspection Psych Mental Status: mental status grossly normal Office Procedures EKG Details: EKG with underlying sinus rhythm at 73/Min; no significant ST-T changes; [place]. [id number], Complete Assessment & Plan Assessment & Plan (1) Intermittent palpitations: Code(s): R00.2 - Palpitations Category: Medical (2) Family history of early CAD: Comment: father had HI at age 54 y/o Code(s): Z82.49 - Family history of ischemic heart disease and other diseases of the circulatory system Category: Medical Plan Cardiac studies reviewed. Baseline EKGs unremarkable. Echocardiogram with LVEF of 50-55%. Normal diastolic function. No significant valvular findings. Prior Holter monitor with underlying sinus rhythm. Some sinus tachycardia. Rare PACs/PVCs. Patient's symptoms correlated with sinus rhythm/sinus tachycardia. Overall, she continues to describe palpitations, we will repeat his Holter monitor. You strong family history of coronary disease in father, we will get a calcium scoring CT scan. We discussed about these today and she is agreeable. Hence we can proceed with scheduling. Based on the findings, can plan further care. Discussion Notes I have thoroughly discussed with the patient the likely benign nature of her episodic chest pains, potentially linked to prior surgeries and scar tissue related to the mastectomy and reconstruction. We discussed monitoring her palpitations using a Holter device over a week to capture any further episodes, understanding this test to be similar to prior monitoring efforts. I also clar ified the nature and costs of a calcium score performed without contrast, ensuring her allergies would not be triggered. This test is useful given her family history, offering insights into coronary risks minimally invasive. We reviewed that her osteoporosis should still be managed with calcium despite concerns about cardiovascular impact, as these are independent factors. Consent was obtained for the planned testing and follow-up strategy, and she is agreeable to proceed. Patient was informed and verbally consented to the use of an ambient scribe for clinic note documentation during this visit. Total time spent including review of data, counseling, documentation, coordination of care-32 minutes. Orders: Orders CT Coronary Calcium Score Today I25.10 - Atherosclerotic heart disease of [place] coronary artery without angina pectoris ECG 7 day holter monitor Today R00.2 - Palpitations Patient Instructions: - Wear the Holter monitor for the full week, following instructions about contacting water exposures. - Arrange for a calcium score without contrast to assess coronary artery disease. - Continue calcium supplements as prescribed to manage osteoporosis. - Keep a log of symptoms and activities during the monitoring week for accurate assessment. - Seek immediate care if experiencing any worsening or new symptoms. - Follow up after the completion of monitoring and test results to discuss further management. Coding Level of Care Code Est Pt Level 4 (97103) Complex EM visit Add On G2211 Diagnoses Intermittent palpitations R00.2 Family history of early CAD Z82.49 CPT Codes EKG - CPT: 91999-[id number], Complete ([id number])
--- OUTSIDE RECORDS SUMMARY | 2024-06-19 16:18 | XMS_ITS | Clinical Summary ---
Author Organization [address] [facility] Address [address] [place] [address] Phone Care Team Providers Care Foster Care Social Worker Name Role Phone Mary Tenorio MD Primary Care Provider [phone] Allergies Active Allergy Reactions Criticality Noted Date Comments Bupropion 05/09/2009 Other Reaction(s): Rash/Dermatitis Ciprofloxacin-Hydrocortison e Wheezing 05/09/2009 Shellfish Containing Products 05/09/2009 Other Reaction(s): Hives/Urticaria Medications acetaminophen (TYLENOL) 325 mg tablet Take 2 Tablets by mouth every 6 hours as needed for Pain (mild to moderate pain) for up to 10 days. 3 Active doxycycline (VIBRAMYCIN) 100 mg capsule 2 times daily. 3 Active DULoxetine (CYMBALTA) [address] capsule Take 1 Cap by mouth daily for 30 days. 9 Active hydrOXYzine HCL (ATARAX) 10 mg tablet 3 Active ibuprofen (ADVIL,MOTRIN) 800 mg tablet Take 1 Tablet by mouth every 8 hours for 30 days. 3 Active LORazepam (ATIVAN) 0.5 mg tablet Take 1 Tab by mouth 2 times daily as needed for Anxiety. 9 Active LORazepam (ATIVAN) 1 mg tablet PLEASE SEE ATTACHED FOR DETAILED DIRECTIONS 3 Active melatonin 5 mg tablet Take 5-10 mg by mouth. Active miconazole nitrate 2 % aerosol,spray Apply 1 Applicator topically daily. 4 Active omeprazole (PRILOSEC) 20 mg tablet,delayed release (DR/EC) Take 20 Tabs by mouth. Active traZODone (DESYREL) 50 mg tablet 1/2-2 qhs 8 Active zolpidem (AMBIEN) 5 mg tablet TAKE 1/2 TO 1 TABLET BY MOUTH AT BEDTIME NEEDED FOR SLEEP 3 Active polyethylene glycol (MIRALAX) 17 gram packet Take 17 g by mouth daily. Active hydrocolloid dressing (AQUACEL HYDROFIBER DRESSING TOP) Apply 1 Applicator topically daily. 3 Active silver sulfADIAZINE (Silvadene) 1 % cream Apply topically 1 (one) time each day. 50 g 4 01/20/20 25 Active clotrimazole-beta methasone (LOTRISONE) 1-0.05 % cream Apply topically 2 (two) times a day for 28 days. 30 g 3 5 07/13/19 25 Active Active Problems Problem Noted Date Diagnosed Date Adjustment reaction with anxiety and depression 06/27/2015 Overweight (BMI 25.0-29.9) 02/07/2015 Obsessive-compulsive disorder 02/13/2013 Major depression, recurrent, chronic (CMS/[facility] V2 4) 02/08/2013 S/P partial thyroidectomy 05/09/2009 Encounters Date Type Department Care Team Description 06/14/2024 2:30 PM EDT Office Visit Orthopedic Surgery [address] [phone] Romulo Darden DPM Dermatitis (Primary Dx); Ingrowing nail; Dermatophytosis of nail; Tinea pedis of left foot; Verruca plantaris 04/26/2024 2:15 PM EST Office Visit Orthopedic Surgery [place] [phone] [phone] Romulo Darden DPM Dermatophytosis of nail (Primary Dx); Tinea pedis of left foot; Verruca plantaris from Last 3 Months Medical History Medical History Date Comments Depression 08/06/2009 DX:Depression Social History Tobacco Use Types Packs/Day Years Used Date Smoking Tobacco: Former Smokeless Tobacco: Never Alcohol Use Standard Drinks/Week Comments No 0 (1 standard drink = 0.6 oz pur e alcohol) Comments Unknown Sex and Gender Information Value Date Recorded Sex Assigned at Not on file Legal Sex Female 3:06 AM EST Gender Identity Not on file Sexual Orientation Not on file Obstetrics History Last Filed Vital Signs Vital Sign Reading Time Taken Comments Blood Pressure - - Pulse - - Temperature - - Respiratory Rate - - Oxygen Saturation - - Inhaled Oxygen Concentration - - Weight 63.5 kg (140 lb) 04/26/2024 2:10 PM EST Height 165.1 cm (5' 5 ) 04/26/2024 2:10 PM EST Body Mass Index 23.3 04/26/2024 2:10 PM EST Plan of Treatment Upcoming Encounters Date Type Department Care Team (Late st Contact Info) Description 07/20/2024 1:15 PM EDT Office Visit Orthopedic Surgery - [place] [address] [phone] Romulo Darden, DPM [address] [address] Health Maintenance Due Date Last Done Comments Breast Cancer Screening 1972 COVID-19 Vaccine (#1) 1977 DTaP,Tdap,and Td Vaccines (1 - Tdap) 11/04/1991 Hepatitis B Vaccines (1 of 3 - 19+ 3-dose series) 11/04/1991 Pneumococcal Vaccine: 50+ Ye ars (1 of 2 - PCV) 11/04/1991 Pneumococcal Vaccine: Pediat rics (0 to 5 Years) and At-Risk Patients (6 to 64 Years) (1 of 2 - PCV) 11/04/1991 Zoster Vaccines (1 of 2) 11/04/1991 Cervical Cancer Screening: P ap Smear 1993 Depression Screening 02/08/2022 HIV Screening 02/08/2022 Hepatitis C Screening 02/08/2022 Medicare Annual Wellness Visit 02/08/2022 Social Influencers of Health Screening 02/08/2022 Colorectal Cancer Screening: FIT-DNA (Cologuard) 01/09/2024 01/08/2021 Influenza Vaccine (Season Ended) 2024 HIB Vaccines Aged Out No longer eligi ble based on patient's age to complete this topic HPV Vaccines Aged Out No longer eligi ble based on patient's age to complete this topic Hepatitis A Vaccines Aged Out No long er eligible based on patient's age to complete this topic IPV Vaccines Aged Out No longer eligi ble based on patient's age to complete this topic MMR Vaccines Aged Out No longer eligi ble based on patient's age to complete this topic Meningococcal ACWY Vaccine Aged Out N o longer eligible based on patient's age to complete this topic Meningococcal B Vaccine Aged Out No l onger eligible based on patient's age to complete this topic RSV Immunization Patients Un maile 20 months Aged Out No longer eligible b ased on patient's age to complete this topic Varicella Vaccines Aged Out No longer eligible based on patient's age to complete this topic Insurance MEDICARE [facility] Advance Directives Documents on File Type Date Recorded Patient Corporate Administrator Expl anation Health Care Decision (hx) 09/10/2010 VENESSA ELENA DIRECTIVE Care Teams Foster Care Social Worker Relationship Specialty Start Date End Date Mary Tenorio MD [address] [place] [address] [facility] - General 03/27/09
--- OUTSIDE RECORDS SUMMARY | 2024-06-19 16:18 | XMS_ITS | Encounter Summary ---
Author Organization [facility] Address [address] [place] [phone] Care Team Providers Care Telesales Specialist Name Role Phone Mary Tenorio MD Primary Care Provider [phone] Encounter Details Date Type Department Care Team ([facility] st Contact Info) Description 06/14/2024 2:30 PM EDT Office Visit Orthopedic Surgery - [place] [address] [phone] Romulo Darden DPM [address] [address] Dermatitis (Primary Dx); Ingrowing nail; Dermatophytosis of nail; Tinea pedis of left foot; Verruca plantaris Social History Tobacco Use Types Packs/Day Years Used Date Smoking Tobacco: Former Smokeless Tobacco: Never Alcohol Use Standard Drinks/Week Comments No 0 (1 standard drink = 0.6 oz pur e alcohol) Comments Unknown Sex and Gender Information Value Date Recorded Sex Assigned at Not on file Legal Sex Female 3:06 AM EST Gender Identity Not on file Sexual Orientation Not on file documented as of this encounter Ordered Prescriptions Prescription Sig Dispense Quantity Refills Last Filled Start Date End Date clotrimazole-betam ethasone (LOTRISONE) 1-0.05 % cream Apply topically 2 (two) times a day for 28 days. 30 g 3 06/14/2024 5 documented in this encounter Progress Notes * Romulo Darden DPM - 06/14/2024 2:30 PM EDT S Patient states she is doing well overall she has no new complaint of rash formation outside of her left foot reports that her right great toe wart has been bothering her continues to have some thickening of her nail plate reports the rash is by the most pain is 4 out of 10 visual analog scale itchyachy has tried some topical antifungals with minimal improvement ROS: GENERAL: Pt denies nausea, fever, vomiting, chills, or shortness of breath. Pt in NAD. CARDIOLOGY: pt denies chest pain, palpitations LUNGS: pt denies shortness of breath MUSCULOSKELETAL: See HPI, otherwise no joint pain or swelling, back pain, or muscle pain. SKIN: see HPI, otherwise no lesions, rash or itching NEURO: No persistent headache, weakness or numbness The remainder of the review of systems is noncontributory PAST MEDICAL HISTORY: Patient Active Problem List Diagnosis Major depression, recurrent, chronic (CMS/HCC) S/P partial thyroidectomy Obsessive-compulsive disorder Overweight (BMI 25.0-29.9) Adjustment reaction with anxiety and depression SOCIAL HISTORY: Social History Tobacco Use Smoking status: Former Smokeless tobacco: Never Substance Use Topics Alcohol use: No ACTIVE MEDICATIONS: Outpatient Medications Marked as Taking for the 06/14/24 encounter (Office Visit) with Romulo Darden DPM Medication Sig Dispense Refill acetaminophen (TYLENOL) 325 mg tablet Take 2 Tablets by mouth every 6 hours as needed for Pain (mild to moderate pain) for up to 10 days. doxycycline (VIBRAMYCIN) 100 mg capsule 2 times daily. DULoxetine (CYMBALTA) [address] capsule Take 1 Cap by mouth daily for 30 days. hydrocolloid dressing (AQUACEL HYDROFIBER DRESSING TOP) Apply 1 Applicator topically daily. hydrOXYzine HCL (ATARAX) 10 mg tablet ibuprofen (ADVIL,MOTRIN) 800 mg tablet Take 1 Tablet by mouth every 8 hours for 30 days. LORazepam (ATIVAN) 0.5 mg tablet Take 1 Tab by mouth 2 times daily as needed for Anxiety. LORazepam (ATIVAN) 1 mg tablet PLEASE SEE ATTACHED FOR DETAILED DIRECTIONS melatonin 5 mg tablet Take 5-10 mg by mouth. miconazole nitrate 2 % aerosol,spray Apply 1 Applicator topically daily. omeprazole (PRILOSEC) 20 mg tablet,delayed release (DR/EC) Take 20 Tabs by mouth. polyethylene glycol (MIRALAX) 17 gram packet Take 17 g by mouth daily. silver sulfADIAZINE (Silvadene) 1 % cream Apply topically 1 (one) time each day. 50 g 0 traZODone (DESYREL) 50 mg tablet 1/2-2 qhs zolpidem (AMBIEN) 5 mg tablet TAKE 1/2 TO 1 TABLET BY MOUTH AT BEDTIME NEEDED FOR SLEEP ALLERGIES: Allergies Allergen Reactions Bupropion Other Reaction(s): Rash/Dermatitis Ciprofloxacin-Hydrocortisone Wheezing Shellfish Containing Products Other Reaction(s): Hives/Urticaria PHYSICAL EXAM: Visit Vitals Smoking Status Former PODIATRIC EXAMINATION: GENERAL: Patient appears well nourished, with NAD. VASCULAR: Dorsalis pedis pulses are 2/4 bilaterally and Posterior tibial pulses are 2/4 bilaterally. Capillary filling time within normal limits the digits. No pallor on elevation or rubor on dependency. Positive hair growth. No varicosities. Denies rest pain or claudication pain. NEUROLOGICAL: Sharp/dull sensation intact, protective sensation intact 10/10 with 5.07 semmes ezio bilaterally, vibratory sensation with tuning fork intact to the tibial tuberosity. ORTHOPEDIC: Good muscle strength 5/5 of all flexors and extensors. Dorsi flexion of ankle ,10 degrees, plantar flexion WNL. No muscle atrophy. DERMATOLOGICAL: Rash formation lateral aspect of left foot measures 5 cm x 2 cm raised irritated nonweeping no breaks in skin Abnormal skin formation right great toe pinpoint bleeding with debridement skin lesion present Toenails: Left Toenail(s) 1-5: Improved discoloration distal margin noted Annular scaling left foot improved IMAGING: Radiographs were taken today and compared to previous films taken 2 weeks ago both are consistent with no new bony erosions no new changes no signs of bone compromise MRI study reviewed aware of concerns for fluid collection where an area of hematoma which was previously drained as well as concerns for acute osteo and chronic osteo of the distal phalanx Plain x-rays taken today some erosions in this area consistent with MRI studies [facility] Surgical Pathology Service [address] [address] SURGICAL PATHOLOGY REPORT Name: YA MERCADO Sex: F Service Date: 11/27/22 Hosp#: [id number] Date Reported: 11/30/22 : 1970 Age: 52 MR#: [id number] Physician: ROMULO DARDEN DPM Location: SPOROPS BONE, LEFT GREAT TOE DISTAL PHALANX CLEAN-EXCISION: -BONE WITH DEGENERATIVE CHANGES -Negative for osteomyelitis Bert Corado M.D. , Pathologist (Case electronically signed 11 30 2022) Pre-Op/Clinical Diagnosis: OSTEOMYELITIS LEFT GREAT TOE Specimen and Site: BONE, LEFT GREAT TOE DISTAL PHALANX CLEAN-EXCISION Gross Description: Labeled left great toe distal phalanx bone clean . Received in formalin is a 0.6 cm aggregate of irregular disrupted pink-red trabecular bone fragments which is wrapped in paper and submitted in toto in one cassette following brief decalcification, multiple pieces, multiple levels on one slide. OLYA Physicians: ROMULO DARDEN DPM/ / MTH0 [id number] [employer] Run Date: 12/01/[address] [place] [id number] Page: 1 Run Time: 0859 Batch: PATIENT: YUNIEL MERCADONIFER Bruce SEX:F ORD MD:ROMULO DARDEN DPM AGE:52 LOC:SURGERY, OP SAME DAY SURGERY U#: [id number] :1970 ROOM: [facility] ADMISSION DATE: DISCHARGE DATE: Specimen: [id number] Collected: 11/27/22-1415 Received:09/22/23-1518 Source: TOE LTGR Sp Desc: Procedure Result Site WOUND DEEP AER/ANAEROBE CULT Preliminary GRAM STAIN RESULT RARE POLYS NO ORGANISMS NOTED NO EPITHELIAL CELLS NOTED Organism 1 PSEUDOMONAS AERUGINOSA Organism 2 STAPHYLOCOCCUS CAPRAE Screening for pathogens. 1. PSEUDOMONAS AERUGINOSA RX M.I.C. ------ --------- CEFTAZIDIME S 4 CEFEPIME S 2 CIPROFLOXACIN S 0.5 LEVOFLOXACIN S 0.5 MEROPENEM S <=0.25 PIPERACILLIN/TAZOBACTAM S 8 2. STAPHYLOCOCCUS CAPRAE RX M.I.C. ------ --------- OXACILLIN S <=0.25 CIPROFLOXACIN S <=0.5 CLINDAMYCIN S <=0.25 ERYTHROMYCIN S <=0.25 GENTAMICIN S <=0.5 LEVOFLOXACIN S 0.25 PENICILLIN R >=0.5 TETRACYCLINE S <=1 VANCOMYCIN S <=0.5 RIFAMPIN S <=0.5 AFB CULTURE Preliminary DIRECT SMEAR NO ACID FAST BACILLI SEEN Fuchsin method(1000x) Thank you for using [employer] - Desiree Tay MD Director CONTINUED ON NEXT PAGE YA MERCADO [employer] Run Date: 12/01/[address] [place] [id number] Page: 2 Run Time: 0859 Batch: Patient: YA MERCADO (Continued) Specimen: [id number] Collected: 11/27/22 Received: 11/27/22151 (Continued) Procedure Result Site AFB CULTURE Preliminary (continued) Testing performed at [employer] Thank you for using [employer] - Desiree Tay MD Director END OF REPORT YA MERCADO IMPRESSION: 1. Dermatitis 2. Ingrowing nail 3. Dermatophytosis of nail 4. Tinea pedis of left foot 5. Verruca plantaris PLAN: Pt was seen and examined, history reviewed. Lotrisone prescribed topically for rash Recommend patient follows up in 4 to 6 weeks to see if the rash fully clears should improve significantly Salicylic acid prescribed treatment options verrucous plantaris were discussed and reviewed including definitive diagnosis with biopsy Discussed with patient concerns for biopsy as it may lead to scar tissue formation but would have surgical cure and definitive diagnosis patient declined Would recommend destructive procedures patient is willing to proceed Salicylic acid was prescribed to be used at home daily at night Follow-up in 1 month [id number]: Destruction of Plantar Verrucae: Verbal informed consent was obtained from the patient. Debrided wart(s) with a scalpel. Aggressive debridement dermal curette and 15 scalpel blade followed by chemical destruction and cauterization with silver nitrate sticks. Romulo Darden DPM documented in this encounter Plan of Treatment Upcoming Encounters Date Type Department Care Team ([facility] st Contact Info) Description 07/20/2024 1:15 PM EDT Office Visit Orthopedic Surgery [facility] [address] [phone] Romulo Darden DPM [address] [address] documented as of this encounter Visit Diagnoses Diagnosis Dermatitis- Primary Contact dermatitis and other eczema, due to unspecified cause Ingrowing nail Dermatophytosis of nail Tinea pedis of left foot Verruca plantaris Plantar wart documented in this encounter Care Teams Telesales Specialist Relationship Specialty Start Date End Date Mary Tenorio MD [address] [place] [address] PCP - General 03/27/09 documented as of this encounter
== END 2024-06-19 15:11 | disposition home or self-care (01) ==
LOC: HO.HCS 14:01
PROVIDERS: PCP Internal Medicine; Visit Provider Internal Medicine
DX: R00.2 Palpitations (principal); Z82.49 Family history of ischemic heart disease and other diseases of the circulatory system
CPT/HCPCS: 93010; 99214

== ENCOUNTER → 2024-06-19 14:01 | Outpatient (BNVA) | payer BC, MEDICARE, SELFPAY | PROVIDERS: PCP Internal Medicine; Visit Provider Internal Medicine | DX: R00.2 Palpitations (principal); Z82.49 Family history of ischemic heart disease and other diseases of the circulatory system | CPT/HCPCS: 93005 ==

== ENCOUNTER 2024-06-20 13:29 | Outpatient (REF) | payer BC, MEDICARE, SELFPAY ==
[2024-06-20 15:53] LABS: TSH reflex Free T4 1.05 uIU/mL (0.32-4.0)
--- OUTSIDE RECORDS SUMMARY | 2024-06-20 17:40 | XMS_ITS | Clinical Summary ---
Author Organization 175 [facility] Address [address] [place] [address] Phone Care Team Providers Care Trolley Car Operator Name Role Phone Mary Tenorio MD Primary Care Provider +1- [phone] Allergies Active Allergy Reactions Criticality Noted Date [...] Obsessive-compulsive disorder 02/13/2013 Major depression, recurrent, chronic (CMS/[facility] V2 4) 02/08/2013 S/P partial thyroidectomy 05/09/2009 Encounters Date Type Department Care Team Description 06/14/2024 2:30 PM EDT Office Visit Orthopedic Surgery [address] [phone] Romulo Darden DPM Dermatitis (Primary Dx); Ingrowing nail; Dermatophytosis of nail; Tinea pedis of left foot; Verruca plantaris 04/26/2024 2:15 PM EST Office Visit Orthopedic Surgery [place] [phone] [phone] Romulo Darden DPM Dermatophytosis of nail (Primary [...] PM EDT Office Visit Orthopedic Surgery - [place] [address] [phone] Romulo Darden, DPM [address] [address] Health Maintenance Due Date Last Done Comments [...] age to complete this topic Insurance [facility] Advance Directives Documents on File Type Date Recorded 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
[2024-06-21 20:34] LABS: Transglutaminase Ab IgG <1.0 U/mL; Transglutaminase IgA <1.0 U/mL
== END 2024-06-20 13:30 | disposition home or self-care (01) ==
LOC: HO.LAB 13:29
PROVIDERS: PCP Internal Medicine; Visit Provider Nurse Practitioner Family
DX: R10.9 Unspecified abdominal pain (principal); K59.00 Constipation, unspecified
CPT/HCPCS: 36415; 84443; 86364

== ENCOUNTER 2024-06-20 13:29 | Outpatient (AMB) | payer BC, MEDICARE, SELFPAY ==
--- NOTE | 2024-06-20 13:32 | MHC.OFFVIS ---
Vital Signs 06/20/24 13:48 Height 5 ft 4 in Weight 145 lb 1.027 oz BMI 24.9 BP 96/54 L Blood Pressure Location Rt brachial Position Sitting Pulse 86 Pulse Source Pulse Oximeter Pulse Oximetry (%) 95 Oxygen Delivery Method Room Air Intake Visit Reasons: Heartburn, Constipation, Ellery screening Intake Note: NEW PATIENT for symptomatic colo screening. GERD + Constipation. Initial screening? Chief Complaint; C/O hx of celiac, lactose intolerance, GERD (currently untreated), belching, and intermittent constipation. Pt reports sx seem worse at night despite attempts to avoid triggers and follow proper guidelines to avoid reflux (2-3 hours after eating, remaining upright). No additional concerns @ this time. Correctional Officer Sergeant Required: No Accompanied by: Self / Same As Patient Allergies bupropion [From Wellbutrin] Allergy (Intermediate, Verified 06/20/24 13:33) Rash ciprofloxacin [Cipro] Allergy (Intermediate, Verified 06/20/24 13:33) rash shellfish derived Allergy (Intermediate, Verified 06/20/24 13:33) Rash gluten Adverse Reaction (Intermediate, Verified 06/20/24 13:33) GI intolerance hydromorphone [Dilaudid] Adverse Reaction (Intermediate, Verified 06/20/24 13:33) hallucinations lactose Adverse Reaction (Unknown, Verified 06/20/24 13:33) Abdominal Pain HPI HPI Heartburn, Constipation, Ellery screening: Details: 53 year old? female with past medical history of osteoporosis, fibromyalgia, celiac disease, depression, lumbar spondylosis, BRCA2 gene mutation, status post hysterectomy and bilateral mastectomy is here today for pre colonoscopy screening.? Patient was sent to us by her PCP.? Patient reports he had a diagnostic colonoscopy several years ago for GI symptoms. Family history of colon polyps, negative CRC.? Denies history of difficulty with sedation or anesthesia in the past.? Negative for history of sleep apnea.? Denies any history of cardiac, renal, pulmonary, or hepatic disease.?? No history of infectious? diseases like hepatitis A, B, C, HIV or tuberculosis.? Patient is not on any anticoagulation. Patient reports she has several GI issues and she has been dealing with them for quite sometimes. Patient reports constipation usually taking fiber to help. Patient has trouble tolerating gluten as well as lactose. Abdominal bloating postprandially and toward the end of the day. Denies dyspepsia, dysphagia or odynophagia. Denies melena, hematochezia, unintentional weight loss or ribbon like stools. [facility] Medical History Intermittent palpitations Toe osteomyelitis, left Constipation Chronic heartburn Family history of early CAD Osteoporosis Malaise and fatigue Surgical menopause BRCA2 gene mutation positive History of multinodular goiter Seborrheic dermatitis Fibromyalgia Celiac disease Depression with anxiety Lumbar spondylosis Lumbar degenerative disc disease Surgical History History of reconstruction of both breasts History of abdominoplasty H/O partial thyroidectomy Hx of bilateral mastectomy Status post total abdominal hysterectomy and bilateral salpingo-oophorectomy (EBONY-BSO) Family History Father Hypertension Mental health disorder Heart attack History of open heart surgery Mother Breast cancer Mental health disorder Social History Household Members: Spouse Household Members Other:: 3 Housing: House Patient Tobacco Use Status: Former Tobacco user Years Smoked: 5 yrs e-Cigarette/Vaping Use: Never Used Substance Use Type: Marijuana service: No Current occupational status: unemployed Cognitive needs: No Hearing needs: No Vision needs: Yes Review of Systems Const Denies weight gain and Denies weight loss ENT Reports no additional complaints, Denies dysphagia and Denies odynophagia Card Reports no additional complaints Resp Reports no additional complaints GI Reports abdominal pain (Epigastric), Denies belching, Denies melena, Reports bloating, Denies change in bowel habits, Reports constipation, Denies dysphagia, Denies excessive flatus, Reports dyspepsia, Reports heartburn, Denies diarrhea, Denies loose stools, Denies nausea, Denies odynophagia and Denies vomiting Reports no additional complaints Musc Reports no additional complaints Neuro Reports no additional complaints Psych Reports no additional complaints Endo Reports no additional complaints Physical Exam Vital Signs: Last Vital Signs Pulse 86 06/20/24 13:48 BP 96/54 L 06/20/24 13:48 Pulse Ox 95 06/20/24 13:48 Oxygen Delivery Method Room Air 06/20/24 13:48 BMI result Body Mass Index 24.9 Const General: healthy appearing, no acute distress and well developed Nutritional Appearance: well nourished Orientation/consciousness: patient oriented x3 Resp Effort & Inspection: normal respiratory effort, able to speak in complete sentences, no tracheal deviation and symmetric chest movement Auscultation: clear to auscultation bilaterally Cardio Rate: regular rate GI Inspection: Yes normal to inspection and No distended Palpation (GI): Soft to palpation, not firm, nontender and No hepatosplenomegaly present Auscultation: normal bowel sounds General: Yes no CVA tenderness Back/Spine/Pelvis Back: no CVA tenderness Skin General skin exam: elasticity normal, turgor normal and dry skin Neuro General: patient oriented x3 Psych Appearance: grossly normal Mental Status: mental status grossly normal Assessment & Plan Assessment & Plan (1) Encounter for screening for malignant neoplasm of colon: Code(s): Z12.11 - Encounter for screening for malignant neoplasm of colon (2) Constipation: Code(s): K59.00 - Constipation, unspecified Category: Medical (3) Celiac disease: Code(s): K90.0 - Celiac disease Category: Medical (4) Postprandial abdominal bloating: Code(s): R14.0 - Abdominal distension (gaseous) Plan Patient denies any cardiac or respiratory symptoms.? Denies any issues with anesthesia in the past.? Denies any history of sleep apnea.? No history infectious diseases in the past or present.? Not on any anticoagulation therapy.? Patient reports multiple GI symptoms. Patient has been dealing with this for quite some time. Lactose and gluten intolerance. Postprandial abdominal bloating no matter what she eats, worse towards the end of the day. Reflux patient is trying to control with diet. Patient should be sent for upper endoscopy as well as colonoscopy. Will send patient for upper GI with barium swallow and she will return in 3 months so we can discuss going for upper endoscopy and colonoscopy. Discussed with patient also FODMAP diet today list of food recommended as well as risks of food to avoid given to patient. Patient is agreeable to current plan of care and verbalizes understanding of instructions. She was given the opportunity to ask questions and all questions answered. Thank you for allowing me to participate in her care Orders: Orders Transglutaminase Ab IgG 06/20/24 R10.9 - Unspecified abdominal pain Transglutaminase IgA 06/20/24 R10.9 - Unspecified abdominal pain TSH reflex Free T4 06/20/24 K59.00 - Constipation, unspecified [place] upper GI w Ba Swallow 06/20/24 K21.9 - Gastro-esophageal reflux disease without esophagitis Coding Level of Care Code New Pt Level 4 (59191) Diagnoses Encounter for screening for malignant neoplasm of colon Z12.11 Constipation K59.00 Celiac disease K90.0 Postprandial abdominal bloating R14.0 Time Spent (min) 50 Comment 35 minutes spent with patient and additional 15 minutes spent reviewing her records
[2024-06-20 13:48] VITALS: BP 96/54; PULSE 86; O2SAT 95; BMI 24.9
--- OUTSIDE RECORDS SUMMARY | 2024-06-20 16:26 | XMS_ITS | Clinical Summary ---
Author Organization 175 [facility] Address [address] [place] [address] Phone Care Team Providers Care Orthodontist Vice President Name Role Phone Mary Tenorio MD Primary Care Provider +1- [phone] Allergies Active Allergy Reactions Criticality Noted Date [...] Obsessive-compulsive disorder 02/13/2013 Major depression, recurrent, chronic (CMS/[facility] V2 4) 02/08/2013 S/P partial thyroidectomy 05/09/2009 Encounters Date Type Department Care Team Description 06/14/2024 2:30 PM EDT Office Visit Orthopedic Surgery [address] [phone] Romulo Darden DPM Dermatitis (Primary Dx); Ingrowing nail; Dermatophytosis of nail; Tinea pedis of left foot; Verruca plantaris 04/26/2024 2:15 PM EST Office Visit Orthopedic Surgery [place] [phone] [phone] Romulo Darden DPM Dermatophytosis of nail (Primary [...] PM EDT Office Visit Orthopedic Surgery - [place] [address] [phone] Romulo Darden, DPM [address] [address] Health Maintenance Due Date Last Done Comments [...] age to complete this topic Insurance MEDICARE [facility] Advance Directives Documents on File Type Date Recorded 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
== END 2024-06-20 14:48 | disposition home or self-care (01) ==
LOC: HO.HGI 13:29
PROVIDERS: PCP Internal Medicine; Visit Provider Nurse Practitioner Family
DX: Z01.818 Encounter for other preprocedural examination (principal); Z12.11 Encounter for screening for malignant neoplasm of colon; K90.0 Celiac disease; R14.0 Abdominal distension (gaseous)
CPT/HCPCS: S0285

== ENCOUNTER → 2024-07-11 13:06 | Outpatient (REF) | payer BC, MEDICARE, SELFPAY ==
--- OUTSIDE RECORDS SUMMARY | 2024-07-11 14:21 | XMS_ITS | Clinical Summary ---
Author Organization 175 [facility] Address [address] [place] [address] Phone Care Team Providers Care Bank Cashier Name Role Phone Mary Tenorio MD Primary Care Provider +1 [phone] Allergies Active Allergy Reactions Criticality Noted Date [...] 02/13/2013 Major depression, recurrent, chronic (CMS/[facility] V2 4) 02/08/2013 S/P partial thyroidectomy 05/09/2009 Encounters Date Type Department Care Team Description 06/14/2024 2:30 PM EDT Office Visit Orthopedic Surgery [address] [phone] Romulo Darden DPM Dermatitis (Primary Dx); Ingrowing nail; Dermatophytosis of nail; Tinea pedis of left foot; Verruca plantaris 04/26/2024 2:15 PM EST Office Visit Orthopedic Surgery [place] [address] [phone] Romulo Darden DPM Dermatophytosis of nail (Primary [...] PM EDT Office Visit Orthopedic Surgery - [place] [address] [phone] Romulo Darden, DPM [address] [address] Health Maintenance Due Date Last Done Comments [...] age to complete this topic Insurance MEDICARE [facility] Advance Directives Documents on File Type Date Recorded 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
== END ==
LOC: HO.CARD 13:06
PROVIDERS: PCP Internal Medicine; Visit Provider Internal Medicine
DX: R00.2 Palpitations (principal)
CPT/HCPCS: 93242

== ENCOUNTER → 2024-07-11 13:10 | Outpatient (BNV) | payer BC, MEDICARE, SELFPAY | PROVIDERS: PCP Internal Medicine; Visit Provider Internal Medicine Cardiovascular Disease | DX: I49.3 Ventricular premature depolarization (principal) | CPT/HCPCS: 93244 ==

== ENCOUNTER 2024-08-22 12:19 | Outpatient (AMB) | payer BC, MEDICARE, SELFPAY ==
--- NOTE | 2024-08-22 12:28 | A.OFFVIS_ITS ---
Vital Signs 08/22/24 12:33 Height 5 ft 4 in Weight 145 lb 8.081 oz BMI 25.0 BP 92/56 L Blood Pressure Location Lt brachial Position Sitting Pulse 64 Pulse Source Monitor Intake Visit Reasons: s/p zi score/ holter/ preop colonoscopy Traffic Engineer Required: No Accompanied by: Self / Same As Patient Allergies bupropion [From Wellbutrin] Allergy (Intermediate, Verified 06/20/24 13:33) Rash ciprofloxacin [Cipro] Allergy (Intermediate, Verified 06/20/24 13:33) rash shellfish derived Allergy (Intermediate, Verified 06/20/24 13:33) Rash gluten Adverse Reaction (Intermediate, Verified 06/20/24 13:33) GI intolerance hydromorphone [Dilaudid] Adverse Reaction (Intermediate, Verified 06/20/24 13:33) hallucinations lactose Adverse Reaction (Unknown, Verified 06/20/24 13:33) Abdominal Pain Medication List - Last Reconciled 08/22/24 by Parish Menendez MD acetaminophen (Tylenol Extra Strength) 1,000 mg (2 x 500 mg) PO QID PRN clotrimazole-betamethasone 1-0.05 % appl topical DAILY duloxetine 30 mg PO DAILY ibuprofen 400 mg PO Q6H PRN lorazepam 0.5 mg PO BID PRN [medical THC buccal] psyllium husk (Fiber (psyllium husk)) 0.4 grams PO BEDTIME zolpidem 5 mg PO BEDTIME PRN HPI Comments Details: Kayla returns for follow-up. In the past, she was seen regarding palpitations. She had reported sensations of 'blurp' or so in her left chest periodically. Very erratic and can happen any time. These are short bursts just lasting for second or so. Nothing prolonged. She also gets very brief nonexertional chest pains. That does not sound cardiac in nature. There is a history of mastectomy and breast reconstruction and hence that could be some scar tissue causing sharp pains. Patient is concerned about her heart mainly because of her father's history of various heart issues. Overall, mainly intermittent brief palpitations and sharp nonexertional chest pains. She has completed a calcium scoring CT scan as well as Holter. She seems to be doing okay. [facility], [facility] Medical History Intermittent palpitations Toe osteomyelitis, left Constipation Chronic heartburn Family history of early CAD Osteoporosis Malaise and fatigue Surgical menopause BRCA2 gene mutation positive History of multinodular goiter Seborrheic dermatitis Fibromyalgia Celiac disease Depression with anxiety Lumbar spondylosis Lumbar degenerative disc disease Surgical History History of reconstruction of both breasts History of abdominoplasty H/O partial thyroidectomy Hx of bilateral mastectomy Status post total abdominal hysterectomy and bilateral salpingo-oophorectomy (EBONY-BSO) Family History Father Hypertension Mental health disorder Heart attack History of open heart surgery Mother Breast cancer Mental health disorder Social History Household Members: Spouse Household Members Other:: 3 Housing: House Patient Tobacco Use Status: Former Tobacco user Years Smoked: 5 yrs e-Cigarette/Vaping Use: Never Used Substance Use Type: Marijuana service: No Current occupational status: unemployed Cognitive needs: No Hearing needs: No Vision needs: Yes Review of Systems Const Denies chills, Denies fatigue, Denies fever(s), Denies frequent falls, Denies weakness, Denies weight gain and Denies weight loss ENT Denies dizziness Card Denies chest pain, Denies leg edema, Denies lightheadedness, Denies palpitations, Denies dyspnea and Denies dyspnea on exertion Resp Denies cough, Denies dyspnea and Denies dyspnea on exertion GI Denies hematochezia Musc Denies abnormal gait, Denies muscle weakness, Denies numbness, Denies radiating pain into limb and Denies tingling Neuro Denies abnormal gait, Denies dizziness, Denies frequent falls, Denies numbness, Denies tingling and Denies weakness Endo Denies fatigue and Denies palpitations Physical Exam Vital Signs: Last Vital Signs Pulse 64 08/22/24 12:33 BP 92/56 L 08/22/24 12:33 BMI result Body Mass Index 25.0 Const General: comfortable and no acute distress Orientation/consciousness: patient oriented x3 HEENT Other: Unremarkable Head: Yes normal to inspection Neck Neck: Yes normal visual inspection Chest Chest palpation & inspection: normal inspection of the chest Resp Auscultation: clear to auscultation bilaterally Cardio Palpation: normal PMI Heart sounds: S1 normal heart sound present, S2 normal heart sound present, no gallops, no murmurs and no rubs GI Palpation (GI): Soft to palpation Back/Spine/Pelvis Other: unremarkable Skin General skin exam: no rashes or lesions noted Neuro General: patient oriented x3 Extrem General: Yes normal to inspection Psych Mental Status: mental status grossly normal Office Procedures EKG Details: EKG with sinus rhythm at 64/Min; possible right atrial enlargement; no ischemic changes; [place] [id number], Complete Assessment & Plan Assessment & Plan (1) PVC (premature ventricular contraction): Code(s): I49.3 - Ventricular premature depolarization Category: Medical (2) Intermittent palpitations: Code(s): R00.2 - Palpitations Category: Medical Plan Cardiac studies reviewed. Baseline EKG unremarkable. Echocardiogram with LVEF of 50-55%. Normal diastolic function. No significant valvular findings. Prior Holter monitor with underlying sinus rhythm. Some sinus tachycardia. Rare PACs/PVCs. Patient's symptoms correlated with sinus rhythm/sinus tachycardia. Study repeated and shows again sinus rhythm with rare PVCs. Palpitations seem to correlate generally with PVCs but sometimes with sinus rhythm. Calcium score is 0. Overall, low normal LVEF, rare PVCs, no coronary disease. In this setting, mainly reassurance. She does not really need any medical therapy. We will recheck her in a year. In the interim, call with any concerns. Discussion Notes I discussed with the patient the presence of Paroxysmal Ventricular Contractions (PVCs), which occur infrequently and possess a benign characteristic. I explained this condition does not impose significant cardiovascular risk, given the normal coronary calcium score of 0, which indicates no plaque build-up. We deliberated on the importance of considering dietary influences and the benefit of continued exercise, encouraging a Mediterranean diet if suitable. The patient was reassured no current interventions are needed. I advised against unnecessary medications such as baby aspirin, with an emphasis on avoiding unnecessary me dication-related side effects. Follow-up with echocardiogram and Holter examination after one year was proposed, and consent was obtained for this plan. Patient was informed and verbally consented to the use of an ambient scribe for clinic note documentation during this visit. Orders: Orders CA echo transthoracic complete 1 Year I49.3 - Ventricular premature depolarization ECG 3 day holter monitor 1 Year I49.3 - Ventricular premature depolarization, R00.2 - Palpitations Patient Instructions: - Monitor diet to identify foods that may trigger palpitations. - Continue with your usual exercise routine; no restrictions are necessary. - Follow a heart-healthy diet. - No need to take baby aspirin at this time. - Plan to return for follow-up echocardiogram and Holter monitoring in one year. - Seek care if palpitations become frequent or accompanied by chest pain or dizziness. Coding Level of Care Code Est Pt Level 3 (16608) Diagnoses PVC (premature ventricular contraction) I49.3 Intermittent palpitations R00.2 CPT Codes EKG - CPT: 04415-[id number], Complete ([id number])
[2024-08-22 12:33] VITALS: BP 92/56; PULSE 64; BMI 25.0
--- OUTSIDE RECORDS SUMMARY | 2024-08-22 13:57 | XMS_ITS | Clinical Summary ---
Author Organization 175 [facility] Address [address] [place] [address] Phone Care Team Providers Care Fishing Hand Name Role Phone Mary Tenorio MD Primary Care Provider +1- [phone] Allergies Active Allergy Reactions Criticality Noted Date [...] day. 50 g 4 01/20/20 25 Active triamcinolone (KENALOG) 0.025 % ointment Apply topically 2 (two) times a day. 30 g 5 07/21/19 26 Active terbinafine (LamISIL) 250 mg tablet Take 1 tablet (250 mg total) by mouth 1 (one) time each day. 30 each 5 08/20/19 25 Active Problems Problem Noted Date Diagnosed Date Adjustment reaction with anxiety and depression 06/27/2015 Overweight (BMI 25.0-29.9) 02/07/2015 Obsessive-compulsive disorder 02/13/2013 Major depression, recurrent, chronic (CMS/[facility] V2 4) 02/08/2013 S/P partial thyroidectomy 05/09/2009 Encounters Date Type Department Care Team Description 07/20/2024 1:15 PM EDT Office Visit Orthopedic Surgery [facility] [address] [phone] Romulo Darden DPM Dermatophytosis of nail (Primary Dx); Tinea pedis of left foot; Dermatitis 06/14/2024 2:30 PM EDT Office Visit Orthopedic [place] [address] [phone] Romulo Darden DPM Dermatitis (Primary Dx); Ingrowing [...] - - Weight 63.5 kg (140 lb) 07/20/2024 1:07 PM EDT Height 165.1 cm (5' 5 ) 07/20/2024 1:07 PM EDT Body Mass Index 23.3 07/20/2024 1:07 PM EDT Plan of Treatment Upcoming Encounters Date Type Department Care Team ([facility] st Contact Info) Description 08/29/2024 1:15 PM EDT Office Visit Orthopedic Surgery - [place] [address] [phone] Romulo Darden, DPBruce [address] [address] Health Maintenance Due Date Last Done Comments [...] age to complete this topic Insurance MEDICARE [facility] Advance Directives Documents on File Type Date Recorded 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
== END 2024-08-22 12:52 | disposition home or self-care (01) ==
LOC: HO.HCS 12:20
PROVIDERS: PCP Internal Medicine; Visit Provider Internal Medicine
DX: I49.3 Ventricular premature depolarization (principal); R00.2 Palpitations
CPT/HCPCS: 93010; 99213

== ENCOUNTER → 2024-08-22 12:19 | Outpatient (BNVA) | payer BC, MEDICARE, SELFPAY | PROVIDERS: PCP Internal Medicine; Visit Provider Internal Medicine | DX: R00.2 Palpitations (principal); I49.3 Ventricular premature depolarization | CPT/HCPCS: 93005 ==

== ENCOUNTER 2024-11-17 14:42 | Outpatient (AMB) | payer BC, MEDICARE, SELFPAY ==
[2024-11-17 14:49] VITALS: BP 96/64; PULSE 74; O2SAT 96; BMI 22.7
--- NOTE | 2024-11-17 14:49 | A.OFFVIS_ITS ---
Vital Signs 11/17/24 14:49 Height 5 ft 4 in Weight 132 lb BMI 22.7 BP 96/64 Blood Pressure Location Lt brachial Position Sitting Pulse 74 Pulse Source Pulse Oximeter Pulse Oximetry (%) 96 Oxygen Delivery Method Room Air Intake Visit Reasons: 3 mos FUV. Discuss GERD + fecal abn. Discuss colov Intake Note: Est pt for mgmt of GERD + Constipation. Revisit colo. Chief Complaint; C.O. hemorrhoid presence causing some rectal discomfort, no noticeable bleeding at this time. Pt also reports having constipation intermittently despite taking her fiber daily. GERD has improved with dietary and lifestyle changes. Water Pump Servicer Required: No Accompanied by: Self / Same As Patient Allergies bupropion (From Wellbutrin) Allergy (Intermediate, Verified 11/17/24 14:49) Rash ciprofloxacin (Cipro) Allergy (Intermediate, Verified 11/17/24 14:49) rash shellfish derived Allergy (Intermediate, Verified 11/17/24 14:49) Rash gluten Adverse Reaction (Intermediate, Verified 11/17/24 14:49) GI intolerance hydromorphone (Dilaudid) Adverse Reaction (Intermediate, Verified 11/17/24 14:49) hallucinations lactose Adverse Reaction (Unknown, Verified 11/17/24 14:49) Abdominal Pain HPI HPI 3 mos FUV. Discuss GERD + fecal abn. Discuss colov: Details: LAST VISIT Encounter for screening for malignant neoplasm of colon Constipation Celiac disease Postprandial abdominal bloating Plan Patient denies any cardiac or respiratory symptoms.? Denies any issues with anesthesia in the past.? Denies any history of sleep apnea.? No history infectious diseases in the past or present.? Not on any anticoagulation therapy.? Patient reports multiple GI symptoms. Patient has been dealing with this for quite some time. Lactose and gluten intolerance. Postprandial abdominal bloating no matter what she eats, worse towards the end of the day. Reflux patient is trying to control with diet. Patient should be sent for upper endoscopy as well as colonoscopy. Will send patient for upper GI with barium swallow and she will return in 3 months so we can discuss going for upper endoscopy and colonoscopy. Discussed with patient also FODMAP diet today list of food recommended as well as risks of food to avoid given to patient. Patient is agreeable to current plan of care and verbalizes understanding of instructions. She was given the opportunity to ask questions and all questions answered. ? Thank you for allowing me to participate in her care Orders Transglutaminase Ab IgG 06/20/24 R10.9 Transglutaminase IgA 06/20/24 R10.9 TSH reflex Free T4 06/20/24 K59.00 FL upper GI w Ba Swallow 06/20/24 K21.9 TODAY'S VISIT Patient is here today for follow-up and to discuss going for upper endoscopy and colonoscopy. Patient reports that she has been doing much better. Lab results have been discussed with patient they were normal. Patient decided not to go for upper GI series with barium swallow as she started to feeling better with dietary changes. Patient change her diet as we discussed last visit. She is not eating lactose or gluten. She is avoiding dietary triggers as much as possible. Patient seen pest control chemical technician and was cleared to go for procedure both endoscopy and colonoscopy. Patient feels like certain food might trigger her palpitation in her and anxiety. We have discussed that certain food could possibly cause excitability that could cause the feeling of palpitation. We discussed that mainly sugars or carbs. Patient also reports of feeling anxious and that might be also the reason for her palpitations. Patient denies any issues with anesthesia in the past. No history of sleep apnea. Patient is anxious about going for the procedure and is asking if she can take small dose of Ativan before going for procedure. Patient believes that her father was diagnosed with colorectal cancer. Patient is not taking any anticoagulation medication. [facility] Medical History Intermittent palpitations Toe osteomyelitis, left Constipation Chronic heartburn Family history of early CAD Osteoporosis Malaise and fatigue Surgical menopause BRCA2 gene mutation positive History of multinodular goiter Seborrheic dermatitis Fibromyalgia Celiac disease Depression with anxiety Lumbar spondylosis Lumbar degenerative disc disease Surgical History History of reconstruction of both breasts History of abdominoplasty H/O partial thyroidectomy Hx of bilateral mastectomy Status post total abdominal hysterectomy and bilateral salpingo-oophorectomy (EBONY-BSO) Family History Father Hypertension Mental health disorder Heart attack History of open heart surgery Mother Breast cancer Mental health disorder Social History Household Members: Spouse Household Members Other:: 3 Housing: House Patient Tobacco Use Status: Former Tobacco user Years Smoked: 5 yrs e-Cigarette/Vaping Use: Never Used Substance Use Type: Marijuana service: No Current occupational status: unemployed Cognitive needs: No Hearing needs: No Vision needs: Yes Review of Systems Const Denies weight gain and Denies weight loss ENT Reports no additional complaints, Denies dysphagia and Denies odynophagia Card Reports no additional complaints Resp Reports no additional complaints GI Denies abdominal pain, Denies belching, Denies melena, Denies bloating, Denies change in bowel habits, Denies dysphagia, Denies excessive flatus, Denies dyspepsia, Denies heartburn, Denies diarrhea, Denies loose stools, Denies nausea, Denies odynophagia and Denies vomiting Musc Reports no additional complaints Neuro Reports no additional complaints Psych Reports no additional complaints Endo Reports no additional complaints Physical Exam Vital Signs: Last Vital Signs Pulse 74 11/17/24 14:49 BP 96/64 11/17/24 14:49 Pulse Ox 96 11/17/24 14:49 Oxygen Delivery Method Room Air 11/17/24 14:49 BMI result Body Mass Index 22.7 Const General: healthy appearing, no acute distress and well developed Nutritional Appearance: well nourished Orientation/consciousness: patient oriented x3 Resp Effort & Inspection: normal respiratory effort, able to speak in complete sentences, no tracheal deviation and symmetric chest movement Auscultation: clear to auscultation bilaterally Cardio Rate: regular rate GI Inspection: Yes normal to inspection and No distended Palpation (GI): Soft to palpation, not firm, nontender and No hepatosplenomegaly present Auscultation: normal bowel sounds General: Yes no CVA tenderness Back/Spine/Pelvis Back: no CVA tenderness Skin General skin exam: elasticity normal, turgor normal and dry skin Neuro General: patient oriented x3 Psych Appearance: grossly normal Mental Status: mental status grossly normal Results Reviewed Results Reviewed: Laboratory Tests 04/15/25 13:44 TSH 1.05 Tiss Transglutamin IgG <1.0 Tiss Transglutamin IgA <1.0 Assessment & Plan Assessment & Plan (1) Constipation: Code(s): K59.00 - Constipation, unspecified Category: Medical Qualifiers: Constipation type: slow transit constipation Qualified Code(s): K59.01 - Slow transit constipation (2) Encounter for screening for malignant neoplasm of colon: Code(s): Z12.11 - Encounter for screening for malignant neoplasm of colon (3) Postprandial abdominal bloating: Code(s): R14.0 - Abdominal distension (gaseous) (4) GERD (gastroesophageal reflux disease): Code(s): K21.9 - Gastro-esophageal reflux disease without esophagitis Qualifiers: Esophagitis presence: esophagitis presence not specified Qualified Code(s): K21.9 - Gastro-esophageal reflux disease without esophagitis (5) IBS (irritable bowel syndrome): Code(s): K58.9 - Irritable bowel syndrome, unspecified Qualifiers: Irritable bowel syndrome type: without diarrhea Qualified Code(s): K58.9 - Irritable bowel syndrome, unspecified Plan Patient will be sent for upper endoscopy and colonoscopy. What to expect before during and after procedure discussed with patient. Patient can continue her diet. Low FODMAP diet discussed with patient. Patient will go for endoscopy to check duodenum for celiac. Transglutaminase negative, unlikely celiac disease, she might be sensitive to gluten. Stressed with patient then importance of good bowel prep day before procedure. Patient reports that she feels like she might have hemorrhoids. Will send her script for Proctosol. Message sent to surgical schedulers to book procedure for patient. Again discussion with patient about dietary choices. Patient's palpitation could be related to an anxiety. She does confirm that she has an anxiety. Patient might benefit with low-dose of propranolol. Discussed with her avoiding sugars and carbs that could cause colmenares that could actually also feel like palpitation/anxiety. I will see patient after the procedure, sooner on as needed basis. She is agreeable to this plan and verbalizes understanding of instructions. She was given the opportunity to ask questions and all questions answered. Thank you for allowing me to participate in her care Medications: New hydrocortisone 2.5% (Proctosol HC) 1 appl [place] BID-QID PRN 30 grams 2RF hemorrhoids Coding Level of Care Code Est Pt Level 4 (99955) Complex EM visit Add On G2211 Diagnoses Slow transit constipation K59.01 Constipation type: slow transit constipation Encounter for screening for malignant neoplasm of colon Z12.11 Postprandial abdominal bloating R14.0 Gastroesophageal reflux disease, unspecified whether esophagitis present K21.9 Esophagitis presence: esophagitis presence not specified Irritable bowel syndrome without diarrhea K58.9 Irritable bowel syndrome type: without diarrhea Time Spent (min) 40 Comment 25 minutes spent with patient and additional 15 minutes spent reviewing her records
--- OUTSIDE RECORDS SUMMARY | 2024-11-17 17:23 | XMS_ITS | Encounter Summary ---
Author Organization [facility] Address [address] [place] [address] Phone Care Team Providers Care Rouge Sifter Name Role Phone Mary Tenorio MD Primary Care Provider Maryjane Majano MD Unavailable Encounter Details Date Type Department Care Team (Late st Contact Info) Description 02/23/2017 Procedure Pass [facility] [address] [place] [id number] Social History Tobacco Use Types Packs/Day Years Used Date Smoking Tobacco: Former Cigarettes Smokeless Tobacco: Never Comments:Quit smokin03/08 Comments Unknown Sex and Gender Information Value Date Recorded Sex Assigned at Not on file Legal Sex Female 6:14 PM EST Gender Identity Not on file Sexual Orientation Not on file documented as of this encounter Plan of Treatment Not on file documented as of this encounter Visit Diagnoses Not on filedocumented in this encounter Care Teams Rouge Sifter Relationship Specialty Start Date End Date Mary Tenorio MD [address] [place] [address] PCP - General 09/05/13 Maryjane Majano MD [address] [place] [address] Surgery/[place] [address] Plastic and Reconstructive Surgery 02/23/17 documented as of this encounter Additional Source Comments The information contained in this document represents components of the legal health record. It is not the complete legal health record.[facility]
--- OUTSIDE RECORDS SUMMARY | 2024-11-17 17:23 | XMS_ITS | Clinical Summary ---
Author Organization [facility] Address [address] [place] [address] Phone Care Team Providers Care Accounting Auditor Name Role Phone Mary Tenorio MD Primary Care Provider [phone]- [phone] Allergies Active Allergy Reactions Criticality Noted Date [...] day. 30 g 5 07/21/19 26 Active clotrimazole-bet amethasone (LOTRISONE) 1-0.05 % cream Apply topically 2 (two) times a day for 28 days. 30 g 3 5 11/14/19 25 Active Problems Problem Noted Date Diagnosed Date Adjustment reaction with anxiety and depression 06/27/2015 Overweight (BMI 25.0-29.9) 02/07/2015 Obsessive-compulsive disorder 02/13/2013 Major depression, recurrent, chronic (CMS/[facility] V2 4) 02/08/2013 S/P partial thyroidectomy 05/09/2009 Encounters Date Type Department Care Team Description 10/16/2024 8:30 AM EDT Office Visit Orthopedic Surgery [facility] [address] [phone] Romulo Darden DPM Dermatophytosis of nail (Primary Dx); Tinea pedis of left foot 08/29/2024 1:15 PM EDT Office Visit Orthopedic Surgery [facility] [address] [address] Romulo Darden DPM Dermatitis (Primary Dx); Tinea pedis of left foot; Dermatophytosis of nail from Last 3 Months Medical History Medical [...] Upcoming Encounters Date Type Department Care Team ([facility] st Contact Info) Description 12/04/2024 8:15 AM EDT Office Visit Orthopedic Surgery - [place] [address] [address] Romulo Darden, DPM [address] [address] Health Maintenance Due Date Last Done Comments Breast Cancer Screening 1972 COVID-19 Vaccine (#1) 1977 DTaP,Tdap,and Td Vaccines (1 - Tdap) 11/04/1991 Hepatitis B Vaccines (1 of 3 - 19+ 3-dose series) 11/04/1991 Pneumococcal Vaccine: 50+ Ye ars (1 of 2 - PCV) 11/04/1991 Zoster Vaccines (1 of 2) 11/04/1991 Cervical Cancer Screening: P ap Smear 1993 HIV Screening 02/08/2022 Hepatitis C Screening 02/08/2022 Medicare Annual Wellness Visit 02/08/2022 Social Influencers of Health Screening 02/08/2022 Colorectal Cancer Screening: FIT-DNA (Cologuard) 01/09/2024 01/08/2021 Depression Screening 03/08/2024 Influenza Vaccine (#1) 2024 HIB Vaccines Aged Out No longer [...] age to complete this topic Insurance MEDICARE [facility] Advance Directives Documents on File Type Date Recorded Patient Television Tube Inspector Expl anation Health Care Decision (hx) 09/10/2010 VENESSA ELENA DIRECTIVE Care Teams Accounting Auditor Relationship Specialty Start Date End Date Mary Tenorio MD [address] [place] [address] PCP - General 03/27/09
--- OUTSIDE RECORDS SUMMARY | 2024-11-17 17:23 | XMS_ITS | Clinical Summary ---
Author Organization [facility] Address [address] [place] [phone] Phone Care Team Providers Care Sample Stitcher Name Role Phone Mary Tenorio MD Primary Care Provider Maryjane Majano MD Unavailable Allergies Active Allergy Reactions Criticality Noted Date Comments Bupropion Hcl Unknown 07/31/2009 Ciprofloxacin Hcl Unknown 07/31/2009 Hydromorphone 12/14/2017 Gluten Protein 12/14/2017 Shellfish Containing Products 2017 Medications LORazepam (ATIVAN) 0.5 MG tablet Take 0.5 mg by mouth 2 (two) times a day. Active acetaminophen (TYLENOL) 500 MG tablet Take 1,000 mg by mouth every 4 (four) hours as needed for pain (specific location in comments). Active gabapentin (NEURONTIN) 100 MG capsuleIndicati ons:BRCA2 gene mutation positive Take 1 capsule (100 mg total) by mouth 3 (three) times a day. 21 capsule 1 02/23/2017 Active Medication-Free TextIndications :anxiety CBD oil Indications: anxiety Active Active Problems Problem Noted Date Diagnosed Date BRCA2 gene mutation positive 02/23/2017 Breast cancer 11/18/2011 Overview (04/28/2014): Malignant tumor of breast Uncoded left sacral fracture 07/31/2009 Overview (04/28/2014): left sacral fracture Immunizations Immunization Administration Dates Next Due Pneumococcal polysaccharide PPSV23 10/23/2010(Diaz: Patient Decision) Family History Medical History Relation Comments Lung cancer Father Breast cancer Mother DCIS, BRCA2 + Breast cancer Sister bilateral, IDC a nd DCIS Relation Status Comments Father Mother Sister Social History Tobacco Use Types Packs/Day Years Used Date Smoking Tobacco: Former Cigarettes 1 4 Smokeless Tobacco: Never Comments:Quit smokin03/08 Alcohol Use Standard Drinks/Week Comments No 0 (1 standard drink = 0.6 oz pur e alcohol) Education Answer Date Recorded Are you interested in more education? Not on teodora e 07/12/2022 Are you concerned about learning? Not on file 07/12/2022 No 07/12/2022 No 07/12/2022 Digital Access Answer Date Recorded No 07/31/2022 No 07/31/2022 No 07/31/2022 Reliable internet access at home? Not on file 07/31/2022 Device with a working camera? Not on file Comments Unknown Sex and Gender Information Value Date Recorded Sex Assigned at Not on file Legal Sex Female 6:14 PM EST Gender Identity Not on file Sexual Orientation Not on file Last Filed Vital Signs Vital Sign Reading Time Taken Comments Blood Pressure 122/80 12/14/2017 11:00 AM EDT Pulse 58 12/14/2017 11:00 AM EDT Temperature 36.4 C (97.6 F) 12/14/2017 11:00 AM EDT Respiratory Rate 16 12/27/2012 1:37 PM EDT Oxygen Saturation 100% 12/14/2017 11:00 AM EDT Inhaled Oxygen Concentration - - Weight 64.2 kg (141 lb 8 oz) 12/14/2017 11:00 AM EDT Height 165.1 cm (5' 5 ) 12/14/2017 11:00 AM EDT Body Mass Index 23.55 12/14/2017 11:00 AM EDT Plan of Treatment Health Maintenance Due Date Last Done Comments Adult Td,Tdap Booster 1972 LIPID PANEL 1972 DEPRESSION SCREENING 1984 SMOKING Hx and SMOKELESS TOBACCO SCREENING 1985 HEPATITIS C SCREENING 1990 HIV ONE-TIME SCREENING (18-65 YEARS) 1990 PNEUMOCOCCAL VACCINES (50+ years) (1 of 2 - PCV) 11/04/1991 ZOSTER VACCINES (1 of 2) 11/04/1991 PAP SMEAR 1993 COLOGUARD 2017 COLONOSCOPY 2017 COLORECTAL CANCER SCREENING 2017 FIT TEST 2017 FOBT 2017 SIGMOIDOSCOPY 2017 VIRTUAL COLONOSCOPY 2017 INFLUENZA VACCINE (#1) 2024 , 12/03/2018, 02/07/2016, Additional history exists COVID-19 VACCINE ( season) 2024 06/07/2020 HEPATITIS A VACCINES Aged Out No long er eligible based on patient's age to complete this topic HIB VACCINES Aged Out No longer eligi ble based on patient's age to complete this topic MENINGOCOCCAL VACCINES (ACWY) Aged Out No longer eligible based on patient's age to complete this topic MENINGOCOCCAL VACCINES (B) Aged Out N o longer eligible based on patient's age to complete this topic Medical Devices Not on file Insurance MEDICARE PART A & B MEDICARE PART A & B MEDICARE PART A & B MEDICARE PART A & B MEDICARE PART A & B [facility] MEDICARE PART A & B MEDICARE PART A & B MEDICARE PART A & B MEDICARE PART A & B Care Teams Sample Stitcher Relationship Specialty Start Date End Date Mary Tenorio MD [address] [place] [address] PCP - General 09/05/13 Maryjane Majano MD [address] [place] [address] Surgery/[place] [address] Plastic and Reconstructive Surgery 02/23/17 Additional Source Comments The information contained in this document represents components of the legal health record. It is not the complete legal health record.[facility]
== END 2024-11-17 15:20 | disposition home or self-care (01) ==
LOC: HO.HGI 14:43
PROVIDERS: PCP Internal Medicine; Visit Provider Nurse Practitioner Family
DX: Z01.818 Encounter for other preprocedural examination (principal); Z12.11 Encounter for screening for malignant neoplasm of colon; K58.9 Irritable bowel syndrome, unspecified; R14.0 Abdominal distension (gaseous); K21.9 Gastro-esophageal reflux disease without esophagitis
CPT/HCPCS: S0285

== ENCOUNTER 2024-12-05 06:24 | Day surgery (SDC) | payer BC, MEDICARE, SELFPAY ==
--- OUTSIDE RECORDS SUMMARY | 2024-11-21 16:41 | XMS_ITS | Clinical Summary ---
Author Organization [facility] Address [address] [place] [address] Phone Care Team Providers Care Shampoo Assistant Name Role Phone Mary Tenorio MD Primary Care Provider +1- [phone] Allergies Active Allergy Reactions Criticality Noted Date [...] Obsessive-compulsive disorder 02/13/2013 Major depression, recurrent, chronic (CMS/[facility] V2 4) 02/08/2013 S/P partial thyroidectomy 05/09/2009 Encounters Date Type Department Care Team Description 10/16/2024 8:30 AM EDT Office Visit Orthopedic Surgery [facility] [address] [phone] Romulo Darden DPM Dermatophytosis of nail (Primary Dx); Tinea pedis of left foot 08/29/2024 1:15 PM EDT Office Visit Orthopedic Surgery [facility] [address] [address] Romulo Darden DPM Dermatitis (Primary Dx); Tinea [...] Upcoming Encounters Date Type Department Care Team ([facility] st Contact Info) Description 12/04/2024 8:15 AM EDT Office Visit Orthopedic Surgery - [place] [address] [phone] Romulo Darden, DPM [address] [phone] Health Maintenance Due Date Last [...] age to complete this topic Insurance MEDICARE [facility] Advance Directives Documents on File Type Date Recorded Patient Deputy Controller Expl anation Health Care Decision (hx) 09/10/2010 VENESSA ELENA DIRECTIVE Care Teams Shampoo Assistant Relationship Specialty Start Date End Date Mary Tenorio MD [address] [place] [address] PCP - General 03/27/09
--- OUTSIDE RECORDS SUMMARY | 2024-11-21 16:41 | XMS_ITS | Encounter Summary ---
Author Organization [facility] Address [address] [place] [address] Phone Care Team Providers Care Feeder Catcher Tobacco Name Role Phone Mary Tenorio MD Primary Care Provider Maryjane Majano MD Unavailable Encounter Details Date Type Department Care Team (Late st Contact Info) Description 02/23/2017 Procedure Pass [facility] [address] [place] [id number] Social History Tobacco Use Types Packs/Day Years [...] on filedocumented in this encounter Care Teams Feeder Catcher Tobacco Relationship Specialty Start Date End Date Mary Tenorio MD [address] [place] [address] PCP - General 09/05/13 Maryjane Majano MD [address] [place] [address] Surgery/[place] [address] Plastic and Reconstructive Surgery 02/23/17 documented as of this encounter Additional Source Comments The information contained in this document represents components of the legal health record. It is not the complete legal health record.[facility]
--- OUTSIDE RECORDS SUMMARY | 2024-11-21 16:42 | XMS_ITS | Clinical Summary ---
Author Organization [facility] Address [address] [place] [phone] Phone Care Team Providers Care Extermination Inspector Name Role Phone Mary Tenorio MD Primary [...] & B MEDICARE PART A & B [facility] MEDICARE PART A & B MEDICARE PART A & B MEDICARE PART A & B MEDICARE PART A & B Care Teams Extermination Inspector Relationship Specialty Start Date End Date Mary Tenorio MD [address] [facility] [address] [place] [address] PCP - General 09/05/13 Maryjane Majano MD [address] [place] [address] Surgery/[place] [address] Plastic and Reconstructive Surgery 02/23/17 Additional Source Comments The information contained in this document represents components of the legal health record. It is not the complete legal health record.[facility]
[2024-12-01 14:33] VITALS: BMI 22.7
--- NOTE | 2024-12-04 10:56 | HO.ANESPROP2 ---
Documented by User: Mandy Kerr NP 12/04/24 11:00 HPI - Anesthesia Eval Consult details Narrative: 54yo F for Upper Endoscopy and Colonoscopy Cardiac optimized. Follows [facility] for palps. Stable at 08/2024 office visit with 1 year f/u [facility] Active Problems Active Problems: All Active Problems PVC (premature ventricular contraction) (Acute) Intermittent palpitations (Acute) Constipation (Acute) Chronic heartburn (Acute) Family history of early CAD (Acute) Osteoporosis (Acute) Surgical menopause (Acute) BRCA2 gene mutation positive (Acute) Seborrheic dermatitis (Acute) Fibromyalgia (Acute) Celiac disease (Acute) Depression with anxiety (Acute) Lumbar spondylosis (Acute) Lumbar degenerative disc disease (Acute) Past Medical History Medical History Intermittent palpitations Toe osteomyelitis, left Constipation Chronic heartburn Family history of early CAD Osteoporosis Malaise and fatigue Surgical menopause BRCA2 gene mutation positive History of multinodular goiter Seborrheic dermatitis Fibromyalgia Celiac disease Depression with anxiety Lumbar spondylosis Lumbar degenerative disc disease Family History Family History Father Hypertension Mental health disorder Heart attack History of open heart surgery Mother Breast cancer Mental health disorder Surgical History Surgical History Hx of colonoscopy Hx of esophagogastroduodenoscopy History of reconstruction of both breasts History of abdominoplasty H/O partial thyroidectomy Hx of bilateral mastectomy Status post total abdominal hysterectomy and bilateral salpingo-oophorectomy (EBONY-BSO) Social History Social History Household Members: Spouse Household Members Other:: 3 Housing: House Patient Tobacco Use Status: Former Tobacco user Years Smoked: 5 yrs e-Cigarette/Vaping Use: Never Used Substance Use Type: Marijuana Substance Use Type Other:: edibles Have you been hit, kicked, punched, or otherwise hurt by someone within the past year? If so, by whom?: No Are you DNR?: No Advance Directives: No Advance Directives Information Provided: Yes service: No Current occupational status: unemployed Cognitive needs: No Hearing needs: No Vision needs: Yes Meds Allergies Allergy/AdvReac Type Severity Reaction Status Date / Time bupropion (From Wellbutrin) Allergy Intermediate Rash Verified 11/17/24 14:49 ciprofloxacin (Cipro) Allergy Intermediate rash Verified 11/17/24 14:49 shellfish derived Allergy Intermediate Rash Verified 11/17/24 14:49 gluten AdvReac Intermediate GI Verified 11/17/24 14:49 intolerance hydromorphone (Dilaudid) AdvReac Intermediate hallucinati Verified 11/17/24 14:49 ons lactose AdvReac Unknown Abdominal Verified 11/17/24 14:49 Pain Home Medications ?Medication ?Instructions ?Recorded ?Confirmed ?Last Taken ?Type lorazepam 0.5 mg tablet 0.5 mg PO BID PRN Anxiety 12/09/19 12/05/24 12/04/24 History ibuprofen 200 mg tablet 400 mg PO Q6H PRN Pain 10/06/22 12/05/24 11/27/24 History duloxetine 30 mg capsule,delayed 30 mg PO DAILY 01/25/23 12/05/24 12/04/24 History release medical THC buccal 01/25/23 08/22/24 11/27/24 History clotrimazole-betamethasone 1 1 appl topical DAILY 06/20/24 12/05/24 12/04/24 History %-0.05 % topical cream Exam Height,Weight and Vital Signs: Height 5 ft 4 in Weight 59.874 kg Narrative Narrative: EKG 08/2024 EKG Details: EKG with sinus rhythm at 64/Min; possible right atrial enlargement; no ischemic changes; normal AR and corrected QT. Per cardiac: Echocardiogram with LVEF of 50-55%. Normal diastolic function. No significant valvular findings. Prior Holter monitor with underlying sinus rhythm. Some sinus tachycardia. Rare PACs/PVCs. Patient's symptoms correlated with sinus rhythm/sinus tachycardia. Study repeated and shows again sinus rhythm with rare PVCs. Palpitations seem to correlate generally with PVCs but sometimes with sinus rhythm. Calcium score is 0. Assessment and Plan Assessment Anesthesia Assessment: Chart Reviewed Documented by User: Lynne Chapman MD 12/05/24 07:58 PMFSH Past Medical History Medical History Intermittent palpitations Toe osteomyelitis, left Constipation Chronic heartburn Family history of early CAD Osteoporosis Malaise and fatigue Surgical menopause BRCA2 gene mutation positive History of multinodular goiter Seborrheic dermatitis Fibromyalgia Celiac disease Depression with anxiety Lumbar spondylosis Lumbar degenerative disc disease Family History Family History Father Hypertension Mental health disorder Heart attack History of open heart surgery Mother Breast cancer Mental health disorder Family history of problems with anesthesia: No Surgical History Surgical History Hx of colonoscopy Hx of esophagogastroduodenoscopy History of reconstruction of both breasts History of abdominoplasty H/O partial thyroidectomy Hx of bilateral mastectomy Status post total abdominal hysterectomy and bilateral salpingo-oophorectomy (EBONY-BSO) History of Problems with Anesthesia: No Social History Social History Household Members: Spouse Household Members Other:: 3 Housing: House Patient Tobacco Use Status: Former Tobacco user Years Smoked: 5 yrs e-Cigarette/Vaping Use: Never Used Substance Use Type: Marijuana Substance Use Type Other:: edibles Have you been hit, kicked, punched, or otherwise hurt by someone within the past year? If so, by whom?: No Are you DNR?: No Advance Directives: No Advance Directives Information Provided: Yes service: No Current occupational status: unemployed Cognitive needs: No Hearing needs: No Vision needs: Yes Meds Allergies Allergy/AdvReac Type Severity Reaction Status Date / Time bupropion (From Wellbutrin) Allergy Intermediate Rash Verified 11/17/24 14:49 ciprofloxacin (Cipro) Allergy Intermediate rash Verified 11/17/24 14:49 shellfish derived Allergy Intermediate Rash Verified 11/17/24 14:49 gluten AdvReac Intermediate GI Verified 11/17/24 14:49 intolerance hydromorphone (Dilaudid) AdvReac Intermediate hallucinati Verified 11/17/24 14:49 ons lactose AdvReac Unknown Abdominal Verified 11/17/24 14:49 Pain Home Medications ?Medication ?Instructions ?Recorded ?Confirmed ?Last Taken ?Type lorazepam 0.5 mg tablet 0.5 mg PO BID PRN Anxiety 12/09/19 12/05/24 12/04/24 History ibuprofen 200 mg tablet 400 mg PO Q6H PRN Pain 10/06/22 12/05/24 11/27/24 History duloxetine 30 mg capsule,delayed 30 mg PO DAILY 01/25/23 12/05/24 12/04/24 History release medical THC buccal 01/25/23 08/22/24 11/27/24 History clotrimazole-betamethasone 1 1 appl topical DAILY 06/20/24 12/05/24 12/04/24 History %-0.05 % topical cream Exam Airway Mallampati Class: II TM Dist: >3cm Neck ROM: Full Heart: rrr Lungs: cta Assessment and Plan Assessment Anesthesia Assessment: Anesthesia Plan Discussed Final Anesthetic Review Family History of Problems with Anesthesia: No History of Problems with Anesthesia: No NPO: Yes ASA Class: II Final Preanesthetic Review: No Changes in Pt Med Stat, Meds/Allgs Chart Reviewed, Consent Obtained/Reviewed and Anes Risks/Benef Reviewed Patient Risk: Low Procedure Risk: Low Anesthetic Plan Anesthetic Plan: MAC: Disposition: Standard PACU
[2024-12-05 06:30] VITALS: BP 100/69; PULSE 70; RESP 20; TEMP 36.9; O2SAT 96; BMI 22.1
[2024-12-05] MEDS: Lactated Ringers 1,000 ML 100 ML IVCONT (06:59)
--- NOTE | 2024-12-05 07:52 | MHC.SHP ---
Pre-Procedural Eval Section A - 24 Hr Update-Section A only Date of Service: 12/05/24 The patient is an INPATIENT: No The patient has been examined within 24 hours of the surgical procedure. The History & Physical has been completed within 30 days and I have reviewed it.: Yes Section B - Complete if H&P > 30 days Chief Complaint: Slow transit constipation,IBS,gerd, Allergies: Allergies Allergy/AdvReac Type Severity Reaction Status Date / Time bupropion (From Wellbutrin) Allergy Intermediate Rash Verified 11/17/24 14:49 ciprofloxacin (Cipro) Allergy Intermediate rash Verified 11/17/24 14:49 shellfish derived Allergy Intermediate Rash Verified 11/17/24 14:49 gluten AdvReac Intermediate GI Verified 11/17/24 14:49 intolerance hydromorphone (Dilaudid) AdvReac Intermediate hallucinati Verified 11/17/24 14:49 ons lactose AdvReac Unknown Abdominal Verified 11/17/24 14:49 Pain Plan Diagnosis/Plan: Unchanged I have reviewed the history and physical and performed a pertinent physical examination on my patient. No changes have occurred unless specified. Time Spent With Patient Time: Total time managing care of this patient today ____ minutes.
--- NOTE | 2024-12-05 08:42 | P.OPN-COLO_ITS ---
Colonoscopy Operative Note Operative Note Date of Service: 12/05/24 Narrative: Procedure: Upper endoscopy and colonoscopy Indication: GERD, Fam hx of polyps, BRCA 2 carrier Endoscopist: Bia Roldan MD Anesthesia Provider: Rajesh Lentz CRNA Anesthesia type: MAC Instrument: [id number] and [id number]-[id number] EGD Procedure:?? The procedure, indications, preparation and potential complications were reviewed with the patient, who indicated understanding and gave written informed consent to proceed. The endoscope was introduced through the mouth, and advanced to the 2nd part of the duodenum. The mucosa was carefully examined on slow withdrawal of the endoscope. The patient tolerated the procedure well. There were no immediate complications.? EGD Findings:? * Esophagus:? Normal esophageal mucosa was noted. The Z-line was at 36 cm and irregular to 35 cm displaced by a hiatal hernia with the diaphragmatic pinch at 39 cm. Cold forceps biopsies were taken from GE junction to rule out Hester's esophagus. * Stomach:? Erythema and erosions in the antrum. Retroflexion was performed in the cardia. Cold forceps mapping biopsies were taken from the stomach as per Adriana protocol due to hx of BRCA 2 mutation. Numerous polyps were noted in proximal stomach. Cold forceps biopsies were taken for histology. * Duodenum:? Normal duodenal mucosa. Cold forceps biopsies were taken from the duodenal bulb and 2nd portion of the duodenum to rule out celiac sprue. Colonoscopy Procedure:? The patient was then turned for the colonoscopy. A digital rectal exam was performed which was abnormal for perianal tag and hemorrhoids.? A distal attachment cap was affixed to the tip of the scope and the colonoscope was then inserted through the anus and advanced through the colon and advanced to the cecum at 75 cm and terminal ileum.? Appendiceal orifice and ileocecal valve were identified. Mucosa was carefully examined under high definition white light as the instrument was slowly withdrawn in a retrograde panoramic fashion. Retroflexion was performed in ascending colon and rectum. The procedure was not difficult. The quality of the prep was BBPS: 3+2+3 = adequate Withdrawal time 12 minutes Limitations: No limitations Findings: Mucosa: Focal 2 cm area of nodularity and erythema in rectum just above dentate line. Cold forceps biopsies were taken for histology. Remaining colon mucosa was normal to terminal ileum. Protruding lesions: * Medium internal hemorrhoids without stigmata of recent bleeding. Impression: 1. Irregular Z line (biopsy) 2. Gastric polyps (biopsy) 3. Gastritis (biopsy) 4. Normal duodenum (biopsy) 5. Abnormal rectal mucosa (biopsy) 5. Internal and external hemorrhoids Recommendations:?? * Follow-up path results * Avoid NSAIDs * Start omeprazole 20 mg once daily for 8-12 weeks * If gastric polyps are hyperplastic or FGP with dysplasia, pt should be booked for repeat EGD for complete removal of polyps * Repeat colonoscopy for asymptomatic colorectal ca screening in 5 years due to fam hx of high risk polyps
[2024-12-05 08:44] VITALS: BP 93/53; PULSE 80; RESP 12; TEMP 36.3; O2SAT 95
[2024-12-05 08:45] VITALS: BP 91/61; PULSE 68; RESP 12; O2SAT 97
[2024-12-05 09:00] VITALS: BP 111/77; PULSE 53; RESP 12; O2SAT 98
== END 2024-12-05 09:30 | disposition home or self-care (01) ==
PROVIDERS: PCP Internal Medicine; Visit Provider Internal Medicine
PROC: (CPT 45380; principal; 2024-12-05 07:30)
DX: Z12.11 Encounter for screening for malignant neoplasm of colon (principal); K90.0 Celiac disease; K58.9 Irritable bowel syndrome, unspecified; R14.0 Abdominal distension (gaseous); K21.9 Gastro-esophageal reflux disease without esophagitis; K29.50 Unspecified chronic gastritis without bleeding; K31.7 Polyp of stomach and duodenum; R53.81 Other malaise; K22.70 Barrett's esophagus without dysplasia; R00.2 Palpitations; M79.7 Fibromyalgia; M47.816 Spondylosis without myelopathy or radiculopathy, lumbar region; M51.369 Other intervertebral disc degeneration, lumbar region without mention of lumbar back pain or lower extremity pain; M81.0 Age-related osteoporosis without current pathological fracture; Z80.3 Family history of malignant neoplasm of breast; Z15.01 Genetic susceptibility to malignant neoplasm of breast; Z90.13 Acquired absence of bilateral breasts and nipples; F41.8 Other specified anxiety disorders; Z79.899 Other long term (current) drug therapy; Z88.1 Allergy status to other antibiotic agents; Z88.5 Allergy status to narcotic agent; Z88.8 Allergy status to other drugs, medicaments and biological substances; Z91.013 Allergy to seafood; Z91.018 Allergy to other foods; Z98.890 Other specified postprocedural states; Z87.891 Personal history of nicotine dependence; Z56.0 Unemployment, unspecified
CPT/HCPCS: 45380; 43239; 88305; 88313; 88342; J2003; J2704

== ENCOUNTER → 2024-12-05 06:24 | Outpatient (BNV) | payer BC, MEDICARE, SELFPAY | PROVIDERS: PCP Internal Medicine; Visit Provider Internal Medicine | DX: K59.01 Slow transit constipation (principal); K63.89 Other specified diseases of intestine; K64.8 Other hemorrhoids; K21.9 Gastro-esophageal reflux disease without esophagitis; K29.70 Gastritis, unspecified, without bleeding; K31.7 Polyp of stomach and duodenum | CPT/HCPCS: 43239; 45380 ==

== ENCOUNTER 2025-02-20 13:13 | Outpatient (AMB) | payer BC, MEDICARE, SELFPAY ==
--- NOTE | 2025-02-20 13:20 | A.OFFVIS_ITS ---
Vital Signs 02/20/25 13:48 Height 5 ft 4 in Weight 136 lb BMI 23.3 BP 98/64 Blood Pressure Location Lt brachial Position Sitting Pulse 74 Pulse Source Pulse Oximeter Pulse Oximetry (%) 96 Oxygen Delivery Method Room Air Intake Visit Reasons: s/p Double EGD and [place] Intake Note: Est pt for mgmt of GERD + Constipation. S/P Double Chief Complaint; C/O severe constipation if she does not follow her fiber regimen. Pt states she has been very strict with following the dietary adjustments (including prunes and more frequent salads), as well as the psylium fiber to assist with constipation. Rechecker Required: No Accompanied by: Self / Same As Patient Allergies bupropion (From Wellbutrin) Allergy (Intermediate, Verified 11/17/24 14:49) Rash ciprofloxacin (Cipro) Allergy (Intermediate, Verified 11/17/24 14:49) rash shellfish derived Allergy (Intermediate, Verified 11/17/24 14:49) Rash gluten Adverse Reaction (Intermediate, Verified 11/17/24 14:49) GI intolerance hydromorphone (Dilaudid) Adverse Reaction (Intermediate, Verified 11/17/24 14:49) hallucinations lactose Adverse Reaction (Unknown, Verified 11/17/24 14:49) Abdominal Pain HPI HPI s/p Double EGD and [place]: Details: LAST VISIT Constipation Encounter for screening for malignant neoplasm of colon Postprandial abdominal bloating GERD (gastroesophageal reflux disease) IBS (irritable bowel syndrome) Plan Patient will be sent for upper endoscopy and colonoscopy. What to expect before during and after procedure discussed with patient. Patient can continue her diet. Low FODMAP diet discussed with patient. Patient will go for endoscopy to check duodenum for celiac. Transglutaminase negative, unlikely celiac disease, she might be sensitive to gluten. Stressed with patient then importance of good bowel prep day before procedure. Patient reports that she feels like she might have hemorrhoids. Will send her script for Proctosol. Message sent to surgical schedulers to book procedure for patient. Again discussion with patient about dietary choices. Patient's palpitation could be related to an anxiety. She does confirm that she has an anxiety. Patient might benefit with low-dose of pro pranolol. Discussed with her avoiding sugars and carbs that could cause colmenares that could actually also feel like palpitation/anxiety. I will see patient after the procedure, sooner on as needed basis. She is agreeable to this plan and verbalizes understanding of instructions. She was given the opportunity to ask questions and all questions answered. ? Thank you for allowing me to participate in her care New hydrocortisone 2.5% (Proctosol HC) 1 appl MN BID-QID PRN 30 grams 2RF hemorrhoids UPPER ENDOSCOPY AND COLONOSCOPY EGD Findings:? * Esophagus:? Normal esophageal mucosa was noted. The Z-line was at 36 cm and irregular to 35 cm displaced by a hiatal hernia with the diaphragmatic pinch at 39 cm. Cold forceps biopsies were taken from GE junction to rule out Hester's esophagus. * Stomach:? Erythema and erosions in the antrum. Retroflexion was performed in the cardia. Cold forceps mapping biopsies were taken from the stomach as per Adriana protocol due to hx of BRCA 2 mutation. Numerous polyps were noted in proximal stomach. Cold forceps biopsies were taken for histology. * Duodenum:? Normal duodenal mucosa. Cold forceps biopsies were taken from the duodenal bulb and 2nd portion of the duodenum to rule out celiac sprue. Colonoscopy Procedure:? The patient was then turned for the colonoscopy. A digital rectal exam was performed which was abnormal for perianal tag and hemorrhoids.? A distal attachment cap was affixed to the tip of the scope and the colonoscope was then inserted through the anus and advanced through the colon and advanced to the cecum at 75 cm and terminal ileum.? Appendiceal orifice and ileocecal valve were identified. Mucosa was carefully examined under high definition white light as the instrument was slowly withdrawn in a retrograde panoramic fashion. Retroflexion was performed in ascending colon and rectum. The procedure was not difficult. The quality of the prep was BBPS: 3+2+3 = adequate Withdrawal time 12 minutes Limitations: No limitations Findings: Mucosa: Focal 2 cm area of nodularity and erythema in rectum just above dentate line. Cold forceps biopsies were taken for histology. Remaining colon mucosa was normal to terminal ileum. Protruding lesions: * Medium internal hemorrhoids without stigmata of recent bleeding.Impression: 1. Irregular Z line (biopsy) 2. Gastric polyps (biopsy) 3. Gastritis (biopsy) 4. Normal duodenum (biopsy) 5. Abnormal rectal mucosa (biopsy) 5. Internal and external hemorrhoids Recommendations:?? * Follow-up path results * Avoid NSAIDs * Start omeprazole 20 mg once daily for 8-12 weeks * If gastric polyps are hyperplastic or FGP with dysplasia, pt should be booked for repeat EGD for complete removal of polyps * Repeat colonoscopy for asymptomatic colorectal ca screening in 5 years due to fam hx of high risk polyps PATHOLOGY Diagnosis A. Duodenum, biopsy: Duodenal mucosa within normal limits. B. Stomach, antrum lesser curvature, biopsy: Antral-type mucosa with mild chronic inactive inflammation; no Helicobacter organisms seen. C. Stomach, antrum greater curvature, biopsy: Antral-type mucosa with mild chronic inactive inflammation. D. Stomach, incisura, biopsy: Antral-type and oxyntic mucosa within normal limits. E. Stomach, body lesser curvature, biopsy: Oxyntic mucosa within normal limits. F. Stomach, body greater curvature, biopsy: Oxyntic mucosa with mild chronic inactive inflammation; no Helicobacter organisms seen. G. Stomach, polypectomies: Fundic gland polyps with background mild chronic inactive inflammation. H. GE junction, biopsy: - Hester esophagus with background mild chronic inactive inflammation. - No dysplasia seen. - Active esophagitis (maximum eosinophil count 2 per high powered field). I. Rectum, biopsy: Rectal mucosa within normal limits TODAY'S VISIT Patient is here today for follow-up and to discuss upper endoscopy and colonoscopy results. Patient reports that she has been doing fairly well when she is following low FODMAP diet. However patient noticed that if she does not take her fiber daily she suffers with severe constipation. Patient had no H pylori on upper endoscopy. Hester's esophagus found at the GE junction. Duodenum was normal. FGP without dysplasia. Patient had normal colonoscopy, however she has a family history of pre cancerous polyps and will need to repeated colonoscopy in 5 years [facility] Medical History (Updated 03/04/25 @ 18:32 by Taylor Painter, AUTOMATIC GRINDER OPERATOR-) Hester's esophagus determined by biopsy Intermittent palpitations Toe osteomyelitis, left Constipation Chronic heartburn Family history of early CAD Osteoporosis Malaise and fatigue Surgical menopause BRCA2 gene mutation positive History of multinodular goiter Seborrheic dermatitis Fibromyalgia Depression with anxiety Lumbar spondylosis Lumbar degenerative disc disease Surgical History Hx of colonoscopy Hx of esophagogastroduodenoscopy History of reconstruction of both breasts History of abdominoplasty H/O partial thyroidectomy Hx of bilateral mastectomy Status post total abdominal hysterectomy and bilateral salpingo-oophorectomy (EBONY-BSO) Family History Father Hypertension Mental health disorder Heart attack History of open heart surgery Mother Breast cancer Mental health disorder Social History Household Members: Spouse Household Members Other:: 3 Housing: House Patient Tobacco Use Status: Former Tobacco user Years Smoked: 5 yrs e-Cigarette/Vaping Use: Never Used Substance Use Type: Marijuana service: No Current occupational status: unemployed Cognitive needs: No Hearing needs: No Vision needs: Yes Review of Systems Const Denies weight gain and Denies weight loss ENT Reports no additional complaints, Denies dysphagia and Denies odynophagia Card Reports no additional complaints Resp Reports no additional complaints GI Denies abdominal pain, Denies belching, Denies melena, Denies bloating, Denies change in bowel habits, Denies dysphagia, Denies excessive flatus, Denies dyspepsia, Denies heartburn, Denies diarrhea, Denies loose stools, Denies nausea, Denies odynophagia and Denies vomiting Musc Reports no additional complaints Neuro Reports no additional complaints Psych Reports no additional complaints Endo Reports no additional complaints Physical Exam Vital Signs: Last Vital Signs Pulse 74 02/20/25 13:48 BP 98/64 02/20/25 13:48 Pulse Ox 96 02/20/25 13:48 Oxygen Delivery Method Room Air 02/20/25 13:48 BMI result Body Mass Index 23.3 Const General: healthy appearing, no acute distress and well developed Nutritional Appearance: well nourished Orientation/consciousness: patient oriented x3 Resp Effort & Inspection: normal respiratory effort, able to speak in complete sentences, no tracheal deviation and symmetric chest movement Auscultation: clear to auscultation bilaterally Cardio Rate: regular rate GI Inspection: Yes normal to inspection and No distended Palpation (GI): Soft to palpation, not firm, nontender and No hepatosplenomegaly present Auscultation: normal bowel sounds General: Yes no CVA tenderness Back/Spine/Pelvis Back: no CVA tenderness Skin General skin exam: elasticity normal, turgor normal and dry skin Neuro General: patient oriented x3 Psych Appearance: grossly normal Mental Status: mental status grossly normal Assessment & Plan Assessment & Plan (1) Constipation: Code(s): K59.00 - Constipation, unspecified Category: Medical Qualifiers: Constipation type: slow transit constipation Qualified Code(s): K59.01 - Slow transit constipation (2) Encounter for screening for malignant neoplasm of colon: Code(s): Z12.11 - Encounter for screening for malignant neoplasm of colon (3) Postprandial abdominal bloating: Code(s): R14.0 - Abdominal distension (gaseous) (4) Gastroesophageal reflux disease: Code(s): K21.9 - Gastro-esophageal reflux disease without esophagitis Qualifiers: Esophagitis presence: with esophagitis Esophagitis bleeding: without hemorrhage Qualified Code(s): K21.00 - Gastro-esophageal reflux disease with esophagitis, without bleeding (5) Irritable bowel syndrome: Code(s): K58.9 - Irritable bowel syndrome, unspecified Qualifiers: Irritable bowel syndrome type: without diarrhea Qualified Code(s): K58.9 - Irritable bowel syndrome, unspecified (6) Hester's esophagus determined by biopsy: Code(s): K22.70 - Hester's esophagus without dysplasia Category: Medical Plan Patient will continue taking omeprazole daily. Avoid dietary triggers and late night snacking. Staying upright for minimum 3 hours after meals discussed with patient. Patient will continue low FODMAP diet as she does well when she follows it. Increase fiber intake. Patient may take [id number] fiber supplements and if she is constipated may use MiraLax. Increase fluid intake and activity to promote bowel motility. Patient had normal duodenum, most likely patient is sensitive to gluten. Continue avoiding gluten as discussed before. Patient will follow-up in 3 months. She was encouraged to call us if she will have any GI concerning symptoms. Patient is agreeable to plan of care and verbalizes understanding of instructions. She was given the opportunity to ask questions and all questions answered. Thank you for allowing me to participate in her care Medications: Refilled omeprazole 20 mg PO DAILY 90 caps 4RF Coding Level of Care Code Est Pt Level 4 (99398) Add On Problem Visit Only Diagnoses Slow transit constipation K59.01 Constipation type: slow transit constipation Encounter for screening for malignant neoplasm of colon Z12.11 Postprandial abdominal bloating R14.0 Gastroesophageal reflux disease with esophagitis without hemorrhage K21.00 Esophagitis presence: with esophagitis Esophagitis bleeding: without hemorrhage Irritable bowel syndrome without diarrhea K58.9 Irritable bowel syndrome type: without diarrhea Hester's esophagus determined by biopsy K22.70 Time Spent (min) 40 Comment 25 minutes spent with patient and additional 15 minutes spent reviewing her records
[2025-02-20 13:48] VITALS: BP 98/64; PULSE 74; O2SAT 96; BMI 23.3
--- OUTSIDE RECORDS SUMMARY | 2025-02-20 17:15 | XMS_ITS ---
Author Name [facility] Organization Unknown Care Team Organization Name Specialty Phone Email Start Date End [facility] 12/20/2024 [facility] 12/15/2024
--- OUTSIDE RECORDS SUMMARY | 2025-02-20 17:15 | XMS_ITS | Encounter Summary ---
Author Organization [facility] Address [address] [place] [address] Phone Care Team Providers Care Reclamation Engineer Name Role Phone Mary Tenorio MD Primary Care Provider Maryjane Majano MD Unavailable Encounter Details Date Type Department Care Team (Late st Contact Info) Description 02/23/2017 Procedure [facility] [address] [place] [id number] Social History Tobacco Use Types Packs/Day Years [...] on filedocumented in this encounter Care Teams Reclamation Engineer Relationship Specialty Start Date End Date Mary Tenorio MD [address] [facility] [address] [place] [address] PCP - General 09/05/13 Maryjane Majano MD [address] [place] [address] Surgery/[place] [address] Plastic and Reconstructive Surgery 02/23/17 documented as of this encounter Additional Source Comments The information contained in this document represents components of the legal health record. It is not the complete legal health record.[facility]
--- OUTSIDE RECORDS SUMMARY | 2025-02-20 17:16 | XMS_ITS | Clinical Summary ---
Author Organization [address] [facility] Address [address] [place] [address] Phone Care Team Providers Care Equal Opportunity Representative Name Role Phone Mary Tenorio MD Primary Care Provider [phone] Allergies Active Allergy Reactions Criticality Noted Date [...] Apply 1 Applicator topically daily. 3 Active triamcinolone (KENALOG) 0.025 % ointment Apply topically 2 (two) times a day. 30 g 5 07/21/19 26 Active Active Problems Problem Noted Date Diagnosed Date Adjustment reaction with anxiety and depression 06/27/2015 Overweight (BMI 25.0-29.9) 02/07/2015 Obsessive-compulsive disorder 02/13/2013 Major depression, recurrent, chronic 02/08/2013 S/P partial thyroidectomy 05/09/2009 Encounters Date Type Department Care Team Description 01/15/2025 8:30 AM EST Office Visit Orthopedic Surgery [address] [phone] Romulo Darden DPM Dermatophytosis of nail (Primary Dx); Tinea pedis of left foot; Ingrowing nail 12/04/2024 8:15 AM EDT Office Visit Orthopedic [address] [phone] Romulo Darden DPM Dermatophytosis of nail (Primary Dx); Tinea pedis of left foot; Dermatitis; Ingrowing nail; Verruca plantaris from Last 3 Months Medical [...] Care Team (Late st Contact Info) Description 02/26/2025 8:45 AM EST Office Visit Orthopedic Surgery - [place] [address] [phone] Romulo Darden, DPM [address] [phone] Health Maintenance Due Date Last Done Comments Breast Cancer Screening 1972 Colorectal Cancer Screening: Colonoscopy 1972 COVID-19 Vaccine (#1) 1977 DTaP,Tdap,and Td [...] 02/08/2022 Social Influencers of Health Screening 02/08/2022 Depression Screening 03/08/2024 Influenza Vaccine (#1) 2024 RSV Immunization Adult Patie nts (1 - 1-dose 75+ series) 11/04/2047 Colorectal Cancer Screening: FIT-DNA (Cologuard) Discontinued 01/08/2021 HIB Vaccines Aged Out No longer eligi [...] age to complete this topic Insurance MEDICARE [facility] Advance Directives Documents on File Type Date Recorded Patient Medical Reviewer Expl anation Health Care Decision (hx) 09/10/2010 VENESSA ELENA DIRECTIVE Care Teams Equal Opportunity Representative Relationship Specialty Start Date End Date Mary Tenorio MD [address] [place] [address] PCP - General 03/27/09
--- OUTSIDE RECORDS SUMMARY | 2025-02-20 17:16 | XMS_ITS | Clinical Summary ---
Author Organization [facility] Address [address] [place] [id number] Phone Care Team Providers Care Professor Of Art Name Role Phone Mary Tenorio MD Primary [...] 12/03/2018, 02/07/2016, Additional history exists COVID-19 VACCINE (2 - season) 2024 06/07/2020 RSV VACCINE (1 - 1-dose 75+ series) 11/04/2047 HEPATITIS A VACCINES Aged Out No long [...] MEDICARE PART A & B Care Teams Professor Of Art Relationship Specialty Start Date End Date Mary Tenorio MD [address] [place] [address] PCP - General 09/05/13 Maryjane Majano MD [address] [place] [address] Surgery/[place] [address] Plastic and Reconstructive Surgery 02/23/17 Additional Source Comments The information contained in this document represents components of the legal health record. It is not the complete legal health record.[facility]
== END 2025-02-20 14:14 | disposition home or self-care (01) ==
LOC: HO.HGI 13:14
PROVIDERS: PCP Internal Medicine; Visit Provider Nurse Practitioner Family
DX: K59.01 Slow transit constipation (principal); R14.0 Abdominal distension (gaseous); K21.00 Gastro-esophageal reflux disease with esophagitis, without bleeding; K58.9 Irritable bowel syndrome, unspecified; K22.70 Barrett's esophagus without dysplasia
CPT/HCPCS: 99214